=== PATIENT | male | born 1940 | race Caucasian/White ===

== ENCOUNTER → 2016-09-10 | Outpatient (CLI) | payer OTHER ==
--- NOTE | 2016-09-10 13:39 | MA ---
Diagnostic Digital Mammogram With iCAD Analysis Clinical Indications: Breast tenderness reported by the patient in the subareolar right breast in a [age]-year-old male. The patient's physician may have detected a lump on physical examination, although t he patient is unaware of where this was and he does not feel a discrete lump. Technique: Standard cephalocaudal and mediolateral oblique projections were obtained. This examinatio n was processed by the iCAD computer-aided detection system. Comparison: None Breast density: Type B; Scattered fibroglandular densities. Findings: CAD was reviewed. There is an asymmetric opacity in the subareolar right breast in a rather diffuse pattern. No focal mass is seen and no suspicious microcalcifications are identified. The lef t breast is negative. Impression: Asymmetric opacity in the symptomatic right breast requires further evaluation. BI-RADS 0 . Recommendation: Targeted right breast ultrasound which will be subsequently performed today. A verbal report was given to the patient. [facility] will send a result letter to the patient. Negative mammography should not preclude additional workup of a clinically suspicious finding. The patient's information is entered into a reminder system with a target due date for her next mammo gram.
--- NOTE | 2016-09-10 14:07 | US ---
Right Breast Ultrasound History: Follow up diagnostic mammography for evaluation of an area of asymmetric opacity in the suba reolar right breast in a 76-year-old male. Technique: Longitudinal and transverse images were obtained utilizing a 15 MHz transducer. Study was interpreted in conjunction with diagnostic mammography from earlier today. Findings: On my physical examination, I do not detect a discrete palpable mass. Sonographic interroga tion of the anterior right breast demonstrates normal appearing glandular elements. No solid or cysti c mass is seen. Mildly prominent ducts are noted. The constellation of findings on both mammography a nd sonography are consistent with gynecomastia. Impression: Benign findings when considering mammographic and sonographic assessment. BI-RADS 2. Recommendation: Continued clinical follow up. If the reported palpable area enlarges or becomes suspi cious for any reason, additional evaluation or surgical consultation could be considered. A verbal report was given to the patient. [facility] will send a result letter to the patient.
== END ==
LOC: FIMAGING 12:43
PROVIDERS: ATTEND Family Medicine
DX: R92.2 Inconclusive mammogram (principal); R68.89 Other general symptoms and signs; N63 Unspecified lump in breast
CPT/HCPCS: 76641; G0204; 84402-90; 84702-90

== ENCOUNTER 2017-11-29 16:24 | Observation (INO) | payer OTHER ==
--- NOTE | 2017-11-29 16:46 | EDPHY ---
H & P Stated Complaint: ABNORMAL LABS. 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 - Social History Smoking Status: Never smoked Constitutional: Initial Vital Signs Temperature (C) 36.6 C 11/29/17 16:36 Heart Rate 79 11/29/17 16:36 Respiratory Rate 19 11/29/17 16:36 Blood Pressure 166/69 H 11/29/17 16:36 O2 Sat (%) 90 L 11/29/17 16:36 O2 Delivery Mode Room Air Allergies/Adverse Reactions: No Known Allergies Allergy (Verified 03/24/16 17:52) Home Medications: Medication Instructions Recorded Acetaminophen [Tylenol 325mg (*)] 650 mg PO Q6 PRN 03/24/16 Cetirizine [ZyrTEC 10 mg (*)] 10 mg PO DAILY 03/24/16 Finasteride [Proscar 5 MG (*)] 5 mg PO DAILY 03/24/16 Ondansetron [Ondansetron Odt] 4 mg PO Q6 PRN 03/24/16 Pantoprazole Sodium [Protonix 40mg 40 mg PO BID #60 tab 03/27/16 (*)] Herbals/Supplements -Info Only 05/16/16 Medical Decision Making ED Course/Re-evaluation: CHIEF COMPLAINT: "My hemoglobin's been dropping since August" HISTORY OF PRESENT ILLNESS: The patient is a 77 y/o male with liposarcoma and renal failure on dialysis arriving at the recommendation of his physician for a transfusion due to anemia. He reports his Hgb has been dropping since August despite dialysis and Epogen. He has not required a transfusion yet. He reports he gets labs drawn every Friday at dialysis and these have shown a downward trend of his H&H, but he does not have those results with him. Most recent labs performed through our facility on 11/13 show Hgb of 7.1. He is mildly pale and fatigued, but denies other acute complaints. REVIEW OF SYSTEMS: A 10 point review of systems was performed and is negative with the exception of the elements mentioned in the history of present illness. PHYSICAL EXAM: HR, BP, O2 Sat, RR. Temp noted General Appearance: Alert, well hydrated, appropriate, and non-toxic appearing. Mildly pale. Head: Atraumatic without scalp tenderness or obvious injury Eyes: Pupils equal, round, reactive to light and accommodation, EOMI, no trauma , no injection. Nose: Atraumatic, no rhinorrhea, clear. Throat: Mucus membranes moist. Neck: Supple, nontender, no lymphadenopathy. Respiratory: No retractions, no distress, no wheezes, and no accessory muscle use. Lungs are clear to auscultation bilaterally. Cardiovascular: Regular rate and rhythm, no murmurs, rubs, or gallops. Good capillary refill all extremities. Fistula of right forearm. Gastrointestinal: Abdomen is soft, nontender, non-distended, no masses, no rebound, no guarding, no peritoneal signs. Musculoskeletal: Normal active ROM of all extremities, atraumatic. Neurological: Alert, appropriate, and interactive. The patient has non-focal cranial nerves, motor, sensory, and cerebellar exam. Skin: No rashes, good turgor, no nodules on palpation. Past medical history: Liposarcoma, hernia, kidney failure on dialysis Past surgical history: Fistula, left nephrectomy Family history: noncontributory Social history: Senior Gl Accountant: Dr. Owens. DIFFERENTIAL DIAGNOSIS: The differential diagnosis for the patient's anemia included but was not limited to renal failure, chronic kidney disease, possible bone marrow dysplasia. MEDICAL DECISION MAKING: This is a 77 y/o male on dialysis who presents for a transfusion with a 4-month history of downward-trending H&H. His most recent Hgb in our records was 7.1 on 11/13, about 2 weeks ago. He is mildly pale, but otherwise well-appearing. Plan for IV, labs, 2 units PRBCs, and admission. 1721: Spoke with hospitalist service. Dr. Cuellar accepts admission. - Data Points Laboratory Results: Laboratory Results 11/29/17 17:00 11/29/17 11/29/17 11/29/17 17:00 17:00 17:00 WBC RBC Hgb Hct MCV MCH MCHC RDW Plt Count MPV Neut % (Auto) Lymph % (Auto) [place] % (Auto) Eos % (Auto) Baso % (Auto) Nucleat RBC Rel Count Absolute Neuts (auto) Absolute Lymphs (auto) Absolute Monos (auto) Absolute Eos (auto) Absolute Basos (auto) Absolute Nucleated RBC Immature Gran % Immature Gran # PT Pending INR Pending APTT Pending Sodium Pending Potassium Pending Chloride Pending Carbon Dioxide Pending Anion Gap Pending BUN Pending Creatinine Pending Estimated GFR Pending Glucose Pending Calcium Pending Total Bilirubin Pending Conjugated Bilirubin Pending Unconjugated Bilirubin Pending AST Pending ALT Pending Alkaline Phosphatase Pending Total Protein Pending Albumin Pending Lipase Pending Patient ABO/Rh Pending Antibody Screen Pending Crossmatch IS Only See Detail 11/29/17 17:00 WBC 8.83 10^3/uL 10^3/uL (3.80-9.50) RBC 2.94 10^6/uL L 10^6/uL (4.40-6.38) Hgb 7.8 g/dL L g/dL (13.7-17.5) Hct 24.9 % L % (40.0-51.0) MCV 84.7 fL fL (81.5-99.8) MCH 26.5 pg L pg (27.9-34.1) MCHC 31.3 g/dL L g/dL (32.4-36.7) RDW 19.7 % H % (11.5-15.2) Plt Count 571 10^3/uL H 10^3/uL (150-400) MPV 9.2 fL fL (8.7-11.7) Neut % (Auto) 71.0 % % (39.3-74.2) Lymph % (Auto) 16.1 % % (15.0-45.0) [place] % (Auto) 9.6 % % (4.5-13.0) Eos % (Auto) 2.2 % % (0.6-7.6) Baso % (Auto) 0.9 % % (0.3-1.7) Nucleat RBC Rel Count 0.0 % % (0.0-0.2) Absolute Neuts (auto) 6.27 10^3/uL 10^3/uL (1.70-6.50) Absolute Lymphs (auto) 1.42 10^3/uL 10^3/uL (1.00-3.00) Absolute Monos (auto) 0.85 10^3/uL H 10^3/uL (0.30-0.80) Absolute Eos (auto) 0.19 10^3/uL 10^3/uL (0.03-0.40) Absolute Basos (auto) 0.08 10^3/uL 10^3/uL (0.02-0.10) Absolute Nucleated RBC 0.00 10^3/uL 10^3/uL (0-0.01) Immature Gran % 0.2 % % (0.0-1.1) Immature Gran # 0.02 10^3/uL 10^3/uL (0.00-0.10) PT INR APTT Sodium Potassium Chloride Carbon Dioxide Anion Gap BUN Creatinine Estimated GFR Glucose Calcium Total Bilirubin Conjugated Bilirubin Unconjugated Bilirubin AST ALT Alkaline Phosphatase Total Protein Albumin Lipase Patient ABO/Rh Antibody Screen Crossmatch IS Only Departure - Departure Disposition: [facility] Inpatient Acute Clinical Impression: Anemia Qualifiers: Anemia type: unspecified type Qualified Code(s): D64.9 - Anemia, unspecified Condition: Fair Referrals: Jose G Horton MD [Primary Care Provider] - As per Instructions Report Scribed for: Refugio Reece Report Scribed by: Anna Gregorio Date of Report: 11/29/17 Time of Report: 17:21
[2017-11-29 17:08] LABS: PLATELET COUNT 571 10^3/uL (150-400)
[2017-11-29 17:24] LABS: INR 1.13 (0.83-1.16); PROTIME(PATIENT) 14.7 SEC (12.0-15.0)
[2017-11-29] MEDS ORDERED: ONDANSETRON 4 MG/2 ML VIAL IVP PRN (17:30)
[2017-11-29] MEDS ORDERED: ONDANSETRON DISINTEGRATING 4 MG TAB PO PRN (17:30)
[2017-11-29] MEDS ORDERED: ACETAMINOPHEN 325 MG TAB PO PRN (17:30)
--- NOTE | 2017-11-29 19:50 | GHP ---
[f rep st] HISTORY AND PHYSICAL DATE OF ADMISSION: 11/29/2017 CHIEF COMPLAINT: Low hemoglobin, sent in by RN for blood transfusion. HISTORY OF PRESENT ILLNESS: The patient is a 77-year-old male with a history of metastatic liposarcoma and subsequent nephrectomy resulting in end-stage renal disease, who is now dialysis dependent, presents to the emergency department with reports of a low hemoglobin and his nurse requesting a blood transfusion. He has a history of esophagitis and underwent EGD in June,, which revealed Callahan esophagus. He had a follow up EGD by Dr. Maximo Yuen at [facility] in September, and was found to have an esophageal ulceration. It seems he has been taking just p.r.n. ranitidine for this. His hemoglobin in August of 2017 was 12.1 and has trended down to 7.1 on November 13. Upon arrival to the ER today, his hemoglobin is 7.8, which is up a bit in the past 2 weeks. He denies melenic stools or bright red blood per rectum. He states he had a normal bowel movement last night. He reports occasional vomiting episodes, but no vomiting in at least the past week and no history of hematemesis. He is on a Friday, Friday, Friday dialysis schedule. He reports he does make urine and he generally does not require volume removal during dialysis. In the emergency department he denies dizziness, headache, vision changes, chest pain, shortness of breath, abdominal pain, nausea, vomiting, or diarrhea. He is afebrile. Given that his hemoglobin is trending down, he is admitted to the hospital for observation and further evaluation. PAST MEDICAL HISTORY: 1. Metastatic liposarcoma, status post surgical resection x2 with recent PET scan in October of 2017 revealing possible evidence of recurrent disease. Followed by Dr. Pete and Dr. Barksdale. 2. 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 4. Atrial fibrillation. This was an isolated episode in 2014 during hospitalization. Not anticoagulated. 5. History of PIC-associated DVT. 6. Anemia. 7. BPH MEDICATIONS: Please see [facility] for completed outpatient medication list. ALLERGIES: He has no known drug allergies. FAMILY HISTORY: Reviewed and noncontributory. SOCIAL HISTORY: The patient lives independently. He denies alcohol or tobacco use. REVIEW OF SYSTEMS: A 10-point review of systems was performed and is negative except as per HPI. OBJECTIVE: VITAL SIGNS: Temperature is 36.8, blood pressure 159/74, heart rate 71, respiratory rate 12, he is 91% on room air. GENERAL: Patient is awake , alert, and oriented, in no acute distress. HEENT: Head is atraumatic, normocephalic. Pupils equal, round, react to light. Extraocular movements intact. Oropharynx clear. Mucous membranes are moist. NECK: Supple. There is no JVD. HEART: Regular rate and rhythm without rhythm. LUNGS: Clear to auscultation bilaterally. ABDOMEN: Soft, nondistended, nontender. Normoactive bowel tones. EXTREMITIES: Without cyanosis, clubbing, or edema. NEUROLOGIC: Exam is grossly nonfocal. LABORATORY DATA: CBC reveals a white blood cell count of 8.8, hemoglobin 7.8, this is up from 7.1 two weeks ago, but down from 12 three months ago. His MCV is normal at 84.7, platelets slightly elevated at 571. INR is normal at 1.1. Complete metabolic panel shows a BUN of 27, creatinine 4.3, electrolytes are normal, blood glucose 138. LFTs are normal, although his alkaline phosphatase is minimally elevated at 131. ASSESSMENT/PLAN: The patient is a 77-year-old male with a history of sarcolipoma, end-stage renal disease, and esophagitis with worsening anemia, who is admitted to the hospital for further evaluation. 1. Normocytic anemia. His hemoglobin has been trending down from 12 since the beginning of the year. He has no obvious signs of bleeding and is hemodynamically stable. His hemoglobin is actually up to 7.8 from 7.1 two weeks ago. At this point, I do not think he needs a blood transfusion. An EGD 2 months ago revealed an esophageal ulceration. This is most likely the source of his blood loss and he is not currently on PPI therapy. I discussed the case with Gastroenterology. Will make him n.p.o. after midnight and trend his hemoglobin for now. If he has an abrupt drop, could consider repeat EGD. However, it seems the appropriate next step is to start him on Protonix twice daily to help heal the ulcer and proceed with p.r.n. transfusions for hemoglobin less than 7, overt signs of bleeding or hemodynamic instability. Dr. Vu will consult tomorrow. 2. End-stage renal disease. This is secondary to nephrectomy for liposarcoma. The patient is a Friday, Friday, Friday dialysis. He has no urgent dialysis needs. He is euvolemic. He does make some urine. Will need to alert Nephrology of his admission if he is still here on Friday when he is next due for dialysis. 3. Metastatic liposarcoma. It sounds as if he may have disease recurrence based on a recent PET scan reviewed by his surgeon. They are planning to take his case to Tumor Board in the near future. He is followed by Dr. Pete and Dr. Barksdale. Oncology is not alerted of his admission at this time. 4. Esophagitis. B.i.d. proton pump inhibitor as above. 5. Atrial fibrillation. This was an isolated 1 time event that occurred briefly during hospitalization. He is not anticoagulated. 6. Deep venous thrombosis prophylaxis. Will defer pharmacologic therapy, given his suspected ongoing blood loss. Sequential compression devices are ordered. 7. Code status. The patient is a full code. 8. Disposition. Patient is admitted to observation status. Should he warrant further inpatient workup, he may need to be changed to inpatient. /[id number]/MODL MTDD
[2017-11-29] MEDS: PANTOPRAZOLE SODIUM 40 MG TAB PO SCH (20:41)
[2017-11-30 05:18] LABS: PLATELET COUNT 438 10^3/uL (150-400)
[2017-11-30] MEDS ORDERED: FINASTERIDE 5 MG TAB PO SCH (09:00)
--- NOTE | 2017-11-30 09:06 | GCON ---
[f rep st] CONSULTATION INPATIENT CONSULTATION NOTE REFERRING PHYSICIAN: Sharon Cuellar MD REASON FOR CONSULTATION: Anemia. CHIEF COMPLAINT: Anemia. HISTORY OF PRESENT ILLNESS: Briefly, the patient is a pleasant 77-year-old male with a past medical history significant for recurrent liposarcoma, and end-stage renal disease, for which he is on dialys is. It has been noted over the last many weeks that he has had a trending fall in his hemoglobin and hematocrit. From my review of the record, it appears that his baseline hematocrit is in the mid to low 30s. Over the last 6-8 weeks, there are multiple recordings from his outpatient visits, as well as dialysis sessions, where his hematocrits have been in the mid to low 20s. In the setting of a wor sening hematocrit and hemoglobin, he was asked to present to the emergency room to consider a blood t ransfusion. He has been admitted, however, for the evaluation of his anemia. He denies melena. He reports no nausea. He has had no bloody stool. He admits to no hematemesis or abdominal pain. He has had prior upper endoscopy, as recently as 6-8 weeks ago. This was done in the setting of eval uation of recurrent liposarcoma. His upper endoscopy was largely negative, although did reveal some small esophageal erosion/ulceration. He cannot recall when his last colonoscopy occurred. His anemia is normocytic, with normal iron testing. PAST MEDICAL HISTORY: Includes metastatic liposarcoma, esophagitis, Callahan's esophagus, atrial fibr illation, isolated, no longer on anticoagulation, anemia, BPH. ALLERGIES: None. MEDICATIONS: Current medications include Tylenol, Proscar, Zofran, and Protonix. FAMILY HISTORY: Negative for upper intestinal cancer. SOCIAL HISTORY: He lives independently. He does not drink or smoke. REVIEW OF SYSTEMS: A complete 14-point review of systems was undertaken with the patient. The perti nent positives and negatives are detailed in the history of present illness. PHYSICAL EXAM: GENERAL: This is a well-developed male, in no apparent distress. HEENT: His pupils are equal, round, reactive to light and accommodation. His sclerae nonicteric. His oropharynx is c lear. NECK: Supple without lymphadenopathy. HEART: Regular without murmur. LUNGS: Clear to ausc ultation with good respiratory effort. ABDOMEN: Soft, nontender, with normoactive bowel sounds. EX TREMITIES: Free of cyanosis, clubbing, and edema. NEURO: Grossly nonfocal. SKIN: Warm and dry. JOINTS: Show no arthritis. PSYCH: Reveals normal mood and affect. LABORATORY TESTING: Reveals a hemoglobin of 7.2, hematocrit 21.9. Of note, approximately 6-8 weeks ago, at dialysis, he had a similar hemoglobin and hematocrit. Platelet count of 481, MCV of 85. INR 1.1. Sodium of 142, potassium of 3.7, chloride of 103, bicarb of 29, BUN of 37, creatinine of 4.5, albumin of 2.0. IMPRESSION/RECOMMENDATIONS: Anemia. The clinical clues do not suggest a GI source of blood loss. H e may have some contribution of GI bleeding from upper intestinal inflammation of gastritis and esoph agitis. But, given the chronic nature of his symptoms, despite a normal iron, in the setting of a no rmal MCV, I am not suspicious for GI sources of blood loss. I am suspicious for gradually worsening anemia of chronic disease in the setting of known metastatic cancer and dialysis. Furthermore, there is no clinical clue of melena, hematochezia, nausea, or other GI symptoms, or change in bowel habits . At this time, I recommend he receive anemia care with blood transfusion (if indicated), and consider discharge home with followup, with his Hematology/Oncology provider. If there is suspicion, ultimate ly, for an occult GI blood loss, we could consider upper and lower endoscopy. At this time, however, that does not seem likely. Given the esophagitis and gastritis noted approximately 2 months ago, I do recommend he stay on a pro ton pump inhibitor therapy. /[id number]/MODL
[2017-11-30] MEDS: PANTOPRAZOLE SODIUM 40 MG TAB PO SCH (11:04)
--- NOTE | 2017-11-30 11:13 | HOSPPROG ---
Hospitalist Progress Note Assessment/Plan: Patient is a 77-year-old male with history of metastatic liposarcoma resulting in a nephrectomy, end-stage renal disease who is dialysis dependent who presented to the emergency room with a low hemoglobin. He had an EGD June of 2016 which revealed bread esophagus. He had a follow-up EGD and was found to have an esophageal ulceration in 2018. Today is my 1st encounter with the patient. Chart reviewed. Reviewed the vice president of product marketing consult. * normocytic anemia -this is likely secondary to chronic disease. Patient has end-stage renal disease -had an EGD 2 months ago which revealed esophageal ulceration, started on PPI therapy -appreciate Dr. Vu is consult * end-stage renal disease -this is secondary to the nephrectomy for liposarcoma -to get dialysis Friday * metastatic liposarcoma -concern for recurrence based on his recent PET scan, he is to have his case reviewed at the tumor board in the near future * esophagitis * isolated event of atrial fibrillation * esophagitis *con. Reviewed the patient's care with Nephrology and they are okay if we give him a unit of blood. And he will get dialysis tomorrow. Reviewed this with the patient and he is fine with this. Recommendation is to give the blood over 4 hr. I have updated the nursing staff in regards to this. He will likely be discharged this afternoon. Also, spoke with oncology who were fine with the transfusion, will have Elier f/u with Dr Barksdale. Subjective: Elier is tired, said he didn't sleep all night and feels exhausted overall. Objective: Vital Signs Temp Pulse Resp BP Pulse Ox 36.8 C 66 18 124/64 H 92 11/30/17 07:35 11/30/17 07:35 11/30/17 07:35 11/30/17 07:35 11/30/17 07:35 Laboratory Results 11/30/17 05:10 11/30/17 05:10 PT 14.7 SEC (12.0-15.0) 11/29/17 17:00 INR 1.13 (0.83-1.16) 11/29/17 17:00 - Physical Exam Constitutional: not in pain, chronically ill appearing Eyes: PERRL Ears, Nose, Mouth, Throat: hearing normal Respiratory: no respiratory distress Skin: warm, No normal color (pale) Musculoskeletal: generalized weakness Neurologic: AAOx3 Psychiatric: interacting appropriately ICD10 Worksheet Patient Problems: Problems Problem Status Onset Anemia Acute Chest pain Acute Chronic renal failure Acute GI bleed Acute Influenza A Acute Pancreatitis Acute Pneumonia Acute
[2017-11-30 11:49] VITALS: BP 134/59
[2017-11-30] MEDS ORDERED: ACETAMINOPHEN 325 MG TAB PO ONE (12:05)
--- NOTE | 2017-11-30 16:10 | ASMTCMCOM ---
CM Note CM Note Notes: Chart reviewed. 77 year old male admitted via ED with decreased H&H, he is ESRD and on dialysis. Has hx of cancer. To have blood transfusion. Normally independent. No current needs identified. CM available should needs arise. Plan: Home Indpendent Date Signed: 11/30/2017 04:09 PM Electronically Signed By:Arlet Hope RN
--- NOTE | 2017-11-30 17:13 | GDS ---
[f rep st] DISCHARGE SUMMARY DISCHARGE DIAGNOSES: 1. Anemia, likely from chronic disease. 2. End-stage renal disease. 3. Metastatic liposarcoma. 4. Esophagitis. 5. Isolated event of atrial fibrillation. CONSULTATION: Dr. Nato Vu. HISTORY: Briefly, the patient is a 77-year-old male with history of metastatic liposarcoma resulting in nephrectomy. He has end-stage renal disease and is dialysis dependent. [facility] his hemoglobin had been dropping. He had an EGD in June 2016, which revealed an esophagitis. He had followup EGD and was found to have an esophageal ulceration in 2018. He was seen and evaluated by Dr. Vu, who felt he had anemia from chronic disease. He received 2 units o f packed red blood cells after the 1st unit with little improvement. He will get another unit today prior to discharge. He will follow up with Dr. Barksdale and Nephrology in the outpatient setting. HOSPITAL COURSE BY PROBLEM: 1. Anemia, most consistent with chronic disease. He has end-stage renal disease. He had an EGD 2 m onths ago. I have started him on PPI therapy. He says he is not sure he will stay on it because he is worried about PPIs causing dementia. 2. End-stage renal disease. This is secondary to the nephrectomy for liposarcoma. He will get dial ysis tomorrow. 3. Metastatic liposarcoma. There is concern for recurrence, based on his recent PET scan. He is to have his case reviewed at the Tumor Board in the near future. 4. Esophagitis. Recommendation is for him to stay on a PPI. DISCHARGE CONDITION: Stable. VITAL SIGNS: Blood pressure is 134/59, heart rate is 67, respiratory rate is 16, O2 sats on room air 92%, temperature is 36.8 Celsius. MEDICATIONS AT DISCHARGE: Please see the EMR. DISCHARGE INSTRUCTIONS: 1. To follow up with Oncology. Let Dr. Barksdale know that he received 2 units of blood. 2. Continue dialysis as done. 3. If he develops fever, chills, chest pain, worsening bleeding, to return to the ER. /[id number]/MODL
== END 2017-11-30 21:13 | disposition home or self-care (01) ==
LOC: F3E 18:12
PROVIDERS: ADMIT Hospitalist; ATTEND Internal Medicine
PROC: 30233N1 Transfusion of Nonautologous Red Blood Cells into Peripheral Vein, Percutaneous Approach (ICD-10-PCS; principal; 2017-11-29)
DX: D64.9 Anemia, unspecified (principal); N18.6 End stage renal disease; K20.9 Esophagitis, unspecified; I48.91 Unspecified atrial fibrillation; K22.70 Barrett's esophagus without dysplasia; N40.0 Benign prostatic hyperplasia without lower urinary tract symptoms; Z85.831 Personal history of malignant neoplasm of soft tissue; Z86.718 Personal history of other venous thrombosis and embolism; Z90.5 Acquired absence of kidney; Z99.2 Dependence on renal dialysis
CPT/HCPCS: 97165; G0378; G8987; G8988; G8989; P9016

== ENCOUNTER → 2018-01-19 | Outpatient (CLI) | payer OTHER | LOC: FIMAGING 12:14 | PROVIDERS: ATTEND Radiology Radiation Oncology | DX: R19.00 Intra-abdominal and pelvic swelling, mass and lump, unspecified site (principal); N26.1 Atrophy of kidney (terminal) ==

== ENCOUNTER 2018-01-24 13:27 | Observation (INO) | payer OTHER ==
[2018-01-24 14:16] LABS: PLATELET COUNT 635 10^3/uL (150-400)
--- NOTE | 2018-01-24 14:20 | CPEKG ---
Heart Rate: 81 RR Interval: 741 P-R Interval: 144 QRSD Interval: 102 QT Interval: 396 QTC Interval: 460 P [place]: 49 QRS [place]: 9 T Wave [place]: 27 EKG Severity - NORMAL ECG - EKG Impression: SINUS RHYTHM Electronically Signed By: Karen Munoz 24-Jan-2018 15:32:23
[2018-01-24] MEDS ORDERED: NS 300 ML IV ONE (14:37)
--- NOTE | 2018-01-24 14:42 | EDPHY ---
H & P Stated Complaint: Abnl labs on Fridialysis;sent for eval of low Hgb/elevated K + Time Seen by Provider: 01/24/18 13:50 HPI/ROS: CHIEF COMPLAINT: Here for blood transfusion HISTORY OF PRESENT ILLNESS: 77-year-old male with ESRD, on dialysis, and recurrent liposarcoma presents with generalized weakness. He is currently undergoing dialysis on Friday and Friday. He also has recurrent liposarcoma and is undergoing XRT. Decreased oral intake since starting XRT, no vomiting. Feels quite weak, fatigued and somewhat unsteady with walking. Hemoglobin on Friday was 7.7. He was sent to the emergency department for transfusion. Last transfusion was 11/29/2017, 2 units packed red blood cells. s/ p right nephrectomy for liposarcoma, still urinates fairly normally. REVIEW OF SYSTEMS: complete 10 point ROS negative except at noted in the HPI - Personal History Current Tetanus Diphtheria and Acellular Pertussis (TDAP): Yes - Medical/Surgical History Hx Asthma: No Hx Chronic Respiratory Disease: No Hx Diabetes: No Hx Cardiac Disease: Yes Hx Renal Disease: Yes Hx Cirrhosis: No Hx Alcoholism: No Hx HIV/AIDS: No Hx Splenectomy or Spleen Trauma: Yes Other PMH: LIPOSARCOMA/HERNIA/KIDNEY FAILURE WITH DIALYSIS/esophageal ulcer - Social History Smoking Status: Never smoked - Physical Exam Exam: General Appearance: Alert, pleasant Eyes: Pupils equal and round, conjunctival pallor or ENT, Mouth: Mucous membranes somewhat dry Neck: Normal inspection Respiratory: Lungs are clear to auscultation Cardiovascular: Regular rate and rhythm Gastrointestinal: Abdomen is soft and nontender Neurological: A&O, nonfocal exam Skin: Warm and dry Extremities: Normal inspection Psychiatric: Mood and affect normal Constitutional: Initial Vital Signs Temperature (C) 36.9 C 01/24/18 13:36 Heart Rate 99 01/24/18 13:36 Respiratory Rate 16 01/24/18 13:36 Blood Pressure 111/56 L 01/24/18 13:36 O2 Sat (%) 95 01/24/18 13:36 O2 Delivery Mode Nasal Cannula O2 (L/minute) 2 Allergies/Adverse Reactions: hydrocodone Allergy (Mild, Verified 01/24/18 13:43) GI upset Home Medications: Medication Instructions Recorded Acetaminophen [Tylenol 325mg (*)] 650 mg PO Q6 PRN 03/24/16 Finasteride [Proscar 5 MG (*)] 5 mg PO DAILY 03/24/16 Ondansetron [Ondansetron Odt] 4 mg PO Q6 PRN 03/24/16 Herbals/Supplements -Info Only 1 ea PO DAILY 05/16/16 Ranitidine HCl 150 mg PO DAILY PRN 11/29/17 Pantoprazole Sodium [Protonix 40mg 40 mg PO DAILY #60 tab 11/30/17 (*)] Medical Decision Making - Diagnostics EKG Interpretation: EKG interpreted by me reveals normal sinus rhythm, rate 81, no ST or T segment changes. Interpretation: Normal EKG ED Course/Re-evaluation: This pt presents with generalized weakness and anemia. Hgb 8.7 today, I suspect slightly higher today than on 01/20 because of dehydration. Pt is quite frail-appearing and is asking for a PRBC transfusion. I feel that this is reasonable and will probably make him feel better. 1 unit packed red blood cells ordered. d/w pt option of IVF for dehydration, able to urinate and often tolerates 1 liter NS after dialysis. Will give IV normal saline 300 mL for dehydration. The hospitalist service was consulted for admission. Differential Diagnosis: Differential diagnosis includes does not limited to acute hemorrhage, severe dehydration, hemolysis, aplastic anemia. - Data Points Laboratory Results: Laboratory Results 01/24/18 14:05 01/24/18 14:05 01/24/18 01/24/18 01/24/18 14:05 14:05 14:05 WBC 12.41 10^3/uL H 10^3/uL (3.80-9.50) RBC 3.19 10^6/uL L 10^6/uL (4.40-6.38) Hgb 8.7 g/dL L g/dL (13.7-17.5) Hct 27.5 % L % (40.0-51.0) MCV 86.2 fL fL (81.5-99.8) MCH 27.3 pg L pg (27.9-34.1) MCHC 31.6 g/dL L g/dL (32.4-36.7) RDW 18.5 % H % (11.5-15.2) Plt Count 635 10^3/uL H 10^3/uL (150-400) MPV 9.5 fL fL (8.7-11.7) Neut % (Auto) Not Reported Lymph % (Auto) Not Reported [place] % (Auto) Not Reported Eos % (Auto) Not Reported Baso % (Auto) Not Reported Nucleat RBC Rel Count Not Reported Absolute Neuts (auto) Not Reported Absolute Lymphs (auto) Not Reported Absolute Monos (auto) Not Reported Absolute Eos (auto) Not Reported Absolute Basos (auto) Not Reported Absolute Nucleated RBC Not Reported Immature Gran % Not Reported Seg Neutrophils % 89.0 % % Band Neutrophils % 0 % % Lymphocytes % 1.0 % % Monocytes % 10.0 % % Eosinophils % 0 % % Basophils % 0 % % Metamyelocytes % 0 % % Myelocytes % 0 % % Promyelocytes % 0 % % Blast Cells % 0 % % Immature Gran # Not Reported Absolute Seg Neuts 11.04 10^/uL H 10^/uL (1.70-6.50) Absolute Band Neuts 0.00 10^3/uL 10^3/uL (0.00-0.70) Absolute Lymphocytes 0.12 10^3/uL L 10^3/uL (1.00-3.00) Absolute Monocytes 1.24 10^3/uL H 10^3/uL (0.30-0.80) Absolute Eosinophils 0.00 10^3/uL L 10^3/uL (0.03-0.40) Absolute Basophils 0.00 10^3/uL L 10^3/uL (0.02-0.10) Absolute Metamyelocyte 0.00 10^3/mL 10^3/mL (0.00-0.00) Absolute Myelocytes 0.00 10^3/mL 10^3/mL (0.00-0.00) Absolute Promyelocytes 0.00 10^3/uL 10^3/uL (0.00-0.00) Absolute Plasma Cells 0.00 10^3/uL 10^3/uL (0.00-0.00) Absolute Blast Cells 0.00 10^3/uL 10^3/uL (0.00-0.00) Plasma Cells % 0 % % Platelet Estimate INCREASED H (ADEQ) Polychromasia 1+ H Microcytic Cells 1+ H Target Cells 1+ H Oval Macrocytes 2+ H Sodium 142 mEq/L mEq/L (135-145) Potassium 4.4 mEq/L mEq/L (3.3-5.0) Chloride 96 mEq/L L mEq/L (97-110) Carbon Dioxide 25 mEq/l mEq/l (22-31) Anion Gap 21 mEq/L H mEq/L (8-16) BUN 35 mg/dL H mg/dL (7-23) Creatinine 4.1 mg/dL H mg/dL (0.7-1.3) Estimated GFR 14 Glucose 193 mg/dL H mg/dL (70-100) Calcium 8.9 mg/dL mg/dL (8.5-10.4) Patient ABO/Rh B POSITIVE Antibody Screen NEGATIVE Crossmatch IS Only See Detail Enhanced Crossmatch See Detail Medications Given: Discontinued Medications Sodium Chloride (Ns) 300 mls @ 1,000 mls/hr IV EDNOW ONE PRN Reason: Protocol Stop: 01/24/18 14:54 Last Admin: 01/24/18 14:51 Dose: 300 mls Departure - Departure Disposition: [facility] Inpatient Acute Clinical Impression: Anemia of chronic disease Condition: Fair
[2018-01-24] MEDS ORDERED: ONDANSETRON DISINTEGRATING 4 MG TAB PO PRN (16:05)
[2018-01-24] MEDS ORDERED: ONDANSETRON 4 MG/2 ML VIAL IVP PRN (16:05)
[2018-01-24] MEDS ORDERED: ACETAMINOPHEN 325 MG TAB PO PRN (16:05)
--- NOTE | 2018-01-24 17:05 | PDGENHP ---
History and Physical - Chief Complaint Weakness, anemia - History of Present Illness This is a 77 yo male with hx of liposarcoma who is undergoing XRT who has been having decreased oral intake to both solids and foods x weeks. He arrived to the ER and requested a PRBC transfusion as he had sx's similar to this in the past and a transfusion has helped him. In the ER he was given 300ml of Normal saline and 1 unit PRBC was started. He is currently undergoing dialysis on Friday and Friday. His Hgb today is 8.7 which is increased from last checked a few days ago at dialysis which was 7.7. He was admitted with similar sx's in november and had transfusion at that time. His w/o included normal iron stores. His anemia was attributed to renal and chronic disease. He also c/o intermittent nausea but no vomiting. He has been afebrile. no cp or sob. no cough. no diarrhea. no urinary sx's. PMsH: LIPOSARCOMA/HERNIA/KIDNEY FAILURE WITH DIALYSIS/esophageal ulcer, afib ( isolated), BPH, anemia, Hx of PICC associated DVT, Nephrectomy - Social History Smoking Status: Never smoked, no ETOH FmHx: non contributory History Information - Allergies/Home Medication List Allergies/Adverse Reactions: hydrocodone Allergy (Mild, Verified 01/24/18 13:43) GI upset Home Medications: Acetaminophen [Tylenol 325mg (*)] 650 mg PO Q6 PRN 03/24/16 [Last Taken 06/16/16 ] Finasteride [Proscar 5 MG (*)] 5 mg PO DAILY 03/24/16 [Last Taken 01/24/18] Ondansetron [Ondansetron Odt] 4 mg PO Q6 PRN 03/24/16 [Last Taken 11/29/17] Herbals/Supplements -Info Only 1 ea PO DAILY 05/16/16 [Last Taken 06/15/16] Ranitidine HCl 150 mg PO DAILY PRN 11/29/17 [Last Taken Unknown] I have personally reviewed and updated: medical history, social history - Social History Smoking Status: Never smoked Review of Systems Review of Systems: ROS: 10pt was reviewed & negative except for what was stated in HPI & below Physical Exam Physical Exam: Temp Pulse Resp BP Pulse Ox 37.1 C 78 16 144/73 H 96 01/24/18 16:36 01/24/18 16:36 01/24/18 16:36 01/24/18 16:36 01/24/18 16:36 O2 (L/minute) 2 Constitutional: chronically ill appearing Eyes: PERRL Ears, Nose, Mouth, Throat: hearing normal, dry mucous membranes Cardiovascular: regular rate and rhythym, No edema Respiratory: no respiratory distress, no rales or rhonchi, clear to auscultation Gastrointestinal: normoactive bowel sounds, soft, non-tender abdomen Skin: warm Neurologic: AAOx3 Psychiatric: interacting appropriately, not anxious, not encephalopathic Lymph, Heme, Immunologic: No petechiae Lab Data & Imaging Review 01/24/18 14:05 01/24/18 14:05 WBC 12.41 10^3/uL (3.80-9.50) H 01/24/18 14:05 RBC 3.19 10^6/uL (4.40-6.38) L 01/24/18 14:05 Hgb 8.7 g/dL (13.7-17.5) L 01/24/18 14:05 Hct 27.5 % (40.0-51.0) L 01/24/18 14:05 MCV 86.2 fL (81.5-99.8) 01/24/18 14:05 MCH 27.3 pg (27.9-34.1) L 01/24/18 14:05 MCHC 31.6 g/dL (32.4-36.7) L 01/24/18 14:05 RDW 18.5 % (11.5-15.2) H 01/24/18 14:05 Plt Count 635 10^3/uL (150-400) H 01/24/18 14:05 MPV 9.5 fL (8.7-11.7) 01/24/18 14:05 Neut % (Auto) Not Reported 01/24/18 14:05 Lymph % (Auto) Not Reported 01/24/18 14:05 [place] % (Auto) Not Reported 01/24/18 14:05 Eos % (Auto) Not Reported 01/24/18 14:05 Baso % (Auto) Not Reported 01/24/18 14:05 Nucleat RBC Rel Count Not Reported 01/24/18 14:05 Absolute Neuts (auto) Not Reported 01/24/18 14:05 Absolute Lymphs (auto) Not Reported 01/24/18 14:05 Absolute Monos (auto) Not Reported 01/24/18 14:05 Absolute Eos (auto) Not Reported 01/24/18 14:05 Absolute Basos (auto) Not Reported 01/24/18 14:05 Absolute Nucleated RBC Not Reported 01/24/18 14:05 Immature Gran % Not Reported 01/24/18 14:05 Seg Neutrophils % 89.0 % 01/24/18 14:05 Band Neutrophils % 0 % 01/24/18 14:05 Lymphocytes % 1.0 % 01/24/18 14:05 Monocytes % 10.0 % 01/24/18 14:05 Eosinophils % 0 % 01/24/18 14:05 Basophils % 0 % 01/24/18 14:05 Metamyelocytes % 0 % 01/24/18 14:05 Myelocytes % 0 % 01/24/18 14:05 Promyelocytes % 0 % 01/24/18 14:05 Blast Cells % 0 % 01/24/18 14:05 Immature Gran # Not Reported 01/24/18 14:05 Absolute Seg Neuts 11.04 10^/uL (1.70-6.50) H 01/24/18 14:05 Absolute Band Neuts 0.00 10^3/uL (0.00-0.70) 01/24/18 14:05 Absolute Lymphocytes 0.12 10^3/uL (1.00-3.00) L 01/24/18 14:05 Absolute Monocytes 1.24 10^3/uL (0.30-0.80) H 01/24/18 14:05 Absolute Eosinophils 0.00 10^3/uL (0.03-0.40) L 01/24/18 14:05 Absolute Basophils 0.00 10^3/uL (0.02-0.10) L 01/24/18 14:05 Absolute Metamyelocyte 0.00 10^3/mL (0.00-0.00) 01/24/18 14:05 Absolute Myelocytes 0.00 10^3/mL (0.00-0.00) 01/24/18 14:05 Absolute Promyelocytes 0.00 10^3/uL (0.00-0.00) 01/24/18 14:05 Absolute Plasma Cells 0.00 10^3/uL (0.00-0.00) 01/24/18 14:05 Absolute Blast Cells 0.00 10^3/uL (0.00-0.00) 01/24/18 14:05 Plasma Cells % 0 % 01/24/18 14:05 Platelet Estimate INCREASED (ADEQ) H 01/24/18 14:05 Polychromasia 1+ H 01/24/18 14:05 Microcytic Cells 1+ H 01/24/18 14:05 Target Cells 1+ H 01/24/18 14:05 Oval Macrocytes 2+ H 01/24/18 14:05 Sodium 142 mEq/L (135-145) 01/24/18 14:05 Potassium 4.4 mEq/L (3.3-5.0) 01/24/18 14:05 Chloride 96 mEq/L (97-110) L 01/24/18 14:05 Carbon Dioxide 25 mEq/l (22-31) 01/24/18 14:05 Anion Gap 21 mEq/L (8-16) H 01/24/18 14:05 BUN 35 mg/dL (7-23) H 01/24/18 14:05 Creatinine 4.1 mg/dL (0.7-1.3) H 01/24/18 14:05 Estimated GFR 14 01/24/18 14:05 Glucose 193 mg/dL (70-100) H 01/24/18 14:05 Calcium 8.9 mg/dL (8.5-10.4) 01/24/18 14:05 Patient ABO/Rh B POSITIVE 01/24/18 14:05 Antibody Screen NEGATIVE 01/24/18 14:05 Crossmatch IS Only See Detail 01/24/18 14:05 Enhanced Crossmatch See Detail 01/24/18 14:05 Assessment & Plan Assessment: #Dehydration #anemia -no e/o of acute bleed or GI etiology -Hgb has trended down slowly since last admission #Leukocytosis, with no signs of active infection #End stage renal disease, HD dependent #Esophagitis #FTT #Metastatic Liposarcoma #Nausea Plan: He is dehydrated. He has already received 300 ml of IVF in the ER and is getting one unit PRBC. He may need additional fluid but given he is HD dependent will wait to see how he tolerates the transfusion and fluids already given. He does make urine but its not a significant amount check occult blood cont PPI repeat labs in a.m. antiemetics prn consider palliative care consult Notify Onc in a.m. if needed scds given anemia check prealbumin, nutrition stores, nutrition consult. HD on // full code, confirmed at bedside
[2018-01-24] MEDS ORDERED: FAMOTIDINE 20 MG TAB PO PRN (21:00)
[2018-01-25 06:36] LABS: PLATELET COUNT 516 10^3/uL (150-400)
[2018-01-25] MEDS ORDERED: PANTOPRAZOLE SODIUM 40 MG TAB PO SCH (09:00)
[2018-01-25] MEDS ORDERED: Herbals/Supplements -Info Only PO SCH (09:00)
[2018-01-25] MEDS ORDERED: FINASTERIDE 5 MG TAB PO SCH (09:00)
--- NOTE | 2018-01-25 10:55 | ASMTCMCOM ---
CM Note CM Note Notes: 01/25/2018 Case Management Note Reviewed chart. Pt admitted with hx of recurrent liposarcoma undergoing XRT presented to the ED requesting PRBC transfusion. Pt has dialysis MWF. During November 2017 admission pt d/c independent. Awaiting PT recommendations after eval. Case Management d/c poc: to be determined. Case Management to follow. Date Signed: 01/25/2018 10:55 AM Electronically Signed By:Virginia Peters RN
[2018-01-25] MEDS ORDERED: ACETAMINOPHEN 325 MG TAB PO ONE (12:39)
--- NOTE | 2018-01-25 13:19 | GCON ---
[f rep st] CONSULTATION INITIAL ONCOLOGY VISIT PRIMARY ONCOLOGIST: Dr. Gael Barksdale. REASON FOR CONSULTATION: Recurrent liposarcoma. 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 He underwent wide local excision. That excision include removing the spleen, the tail of pancreas, adrenal gland, and left kidney. He went underwent CyberKnife to the psoas muscle lesion, then he received adjuvant chemotherapy with Adriamycin, ifosfamide in 2008. In 2014, he had a 9.2 cm recurrence around the stomach. Dr. Pete performed resection with resection of the distal esophagus, proximal stomach, diaphragm, primary esophagogastrostomy anastomosis. In January 2016, I believe he developed recurrence and was treated with Votrient, but he had trouble with diarrhea, but he was responding. In November of this year, he was found to have a 9.3 cm PET avid mass in the left upper quadrant near the left nephrectomy and splenectomy beds. Initially, it was thought to start the Votrient, but at the Cancer Care Conference it was recommended to try neoadjuvant radiation, followed by resection. He has been undergoing radiation and he reports he is about 60% through the therapy. He has had some abdominal pain and hydrocodone was tried, but it made him too groggy and nauseated, so he is really not taking much at all. It is about the same. The main problem with the radiation has been fatigue. His appetite also not been quite as good. Because of the fatigue, blood count was obtained and it seemed lower at 7.7 while on dialysis. He was referred to the hospital for a blood transfusion, which he received overnight and tolerated it fine. He may be feeling a little bit better, but now, his hemoglobin today is 8.1. He denies any current chest pain. He denies any blood in stools or black tarry stools. He has seen Dr. Yuen, did an upper endoscopy in September. PAST MEDICAL HISTORY: 1. Liposarcoma as per HPI. 2. Chronic kidney failure, on dialysis. 3. History of esophageal ulcer. 4. Isolated history of atrial fibrillation. 5. BPH. 6. PICC line associated DVT. PAST SURGICAL HISTORY: Includes surgical with resections as per HPI, including splenectomy, tail of the pancreas, and left nephrectomy, as well as partial stomach and esophagus removed from a second surgery. He also had a partial thyroidectomy in 2000. FAMILY HISTORY: Unremarkable. SOCIAL HISTORY: Nonsmoker, nondrinker. ALLERGIES: He has no known drug allergies. HOME MEDICATIONS: Include pantoprazole, ranitidine, ondansetron, finasteride, and acetaminophen. REVIEW OF SYSTEMS: 10-point review of systems performed pertinent positives as per HPI, otherwise negative. PHYSICAL EXAMINATION: VITAL SIGNS: Temp is 36.9, pulse 76, blood pressure 127/ 97. GENERAL: He is a mildly pale gentleman, but in no distress. HEENT: Unremarkable. LUNGS: Clear today. CARDIAC: Regular with a 2/6 systolic murmur. ABDOMEN: Soft, nontender, without palpable mass. LYMPHATIC: Jair exam reveals no peripheral lymphadenopathy. NEUROLOGIC: Grossly intact. LABORATORY DATA: White count today is 11,000, hemoglobin is 8.1, platelet count 516,000. Chemistries: Alkaline phosphatase 136. BUN and creatinine 40 and 4.4. TSH is 0.23. IMPRESSION: 1. Recurrent liposarcoma, undergoing neoadjuvant radiation. 2. Chronic kidney failure, on hemodialysis. 3. Chronic anemia. The anemia is probably due to the underlying renal failure, which causes both erythematous deficiency and iron deficiency, along with the cancer and perhaps a partially related to the radiation. Typically, a patients on dialysis or receiving erythropoietin replacement and iron replacement, so I do not recommend that today. There does not appear to be any clinical evidence of bleeding and he has had recent scopes. I agree with just transfusing him as clinically indicated. Since he did not feel a whole lot better, I have recommended another unit today, but if he is stable after that, he can probably go home with followup in the office. He also will follow up tomorrow for both his dialysis, which is Friday, Friday, Friday, and continue the radiation. /[id number]/MODL MTDD
[2018-01-25 16:43] VITALS: BP 129/64
--- NOTE | 2018-01-25 16:48 | ASMTLACE ---
LACE Length of stay for Answers: Less than 1 day current admission Acuity / Level of Answers: No Care: Did the patient have an inpatient admission? Comorbidities - select Answers: Any tumor (including all that apply lymphoma or leukemia) Moderate or severe liver or renal disease # of Emergency department Answers: 1-2 visits in the last 6 months Score: 7 Date Signed: 01/25/2018 04:48 PM Electronically Signed By:Virginia Peters RN
--- NOTE | 2018-01-25 17:10 | ASDISCHSUM ---
Discharge Information Plan Status:Home with No Needs Medically Cleared to Leave:01/25/2018 Discharge Date:01/25/2018 CM D/C Disposition:Home, Routine, Self-Care ADT D/C Disposition:Home, Routine, Self-Care Projected Discharge Date:01/25/2018 Transportation at D/C: Discharge Delay Reason: Follow-Up Date:01/25/2018 Discharge Slot: Final Diagnosis: Placement Information Patient Contact Information Contact Name:SAL Relationship:Friend Address: City:[place] Alternate Phone: State/Zip Code:[place] [address] Email: Financial Information Financial Class:Medicare Primary Plan Desc:MEDICARE OUTPATIENT Primary Plan Number:[id number] Secondary Plan Desc:[employer] [facility] [employer] [facility] Secondary Plan Number:[id number] Assessment Information LACE LACE Length of stay for Answers: Less than 1 day current admission Acuity / Level of Answers: No Care: Did the patient have an inpatient admission? Comorbidities - select Answers: Any tumor (including all that apply lymphoma or leukemia) Moderate or severe liver or renal disease # of Emergency department Answers: 1-2 visits in the last 6 months Score: 7 Date Signed: 01/25/2018 04:48 PM Electronically Signed By:Virginia Peters RN [facility] CM Progress Note CM Note CM Note Notes: 01/25/2018 Case Management Note Reviewed chart. Pt admitted with hx of recurrent liposarcoma undergoing XRT presented to the ED requesting PRBC transfusion. Pt has dialysis MWF. During November 2017 admission pt d/c independent. Awaiting PT recommendations after eval. Case Management d/c poc: to be determined. Case Management to follow. Date Signed: 01/25/2018 10:55 AM Electronically Signed By:Virginia Peters RN Case Management Discharge Plan Note Case Management Discharge Discharge Order Complete? Answers: Yes Patient to Obtain Answers: Independently Medications Discharge Comments Notes: 01/25/2018 Case Management Note Met w/pt to discuss d/c needs. RAQUEL signed. PT cleared pt to return home independent. Confirmed with pt. Pt to discharge independent with follow up as directed. Date Signed: 01/25/2018 05:10 PM Electronically Signed By:Virginia Peters RN Intervention Information Intervention Type:*RAQUEL-Signed Date of Service:01/25/2018 05:07 PM Patient Type:Observation Staff Member:JEFFREY Peters Hillary Hours: Discipline: Severity: Comment:
--- NOTE | 2018-01-26 01:55 | GDS ---
[f rep st] DISCHARGE SUMMARY DIAGNOSES: 1. Severe symptomatic anemia. 2. Recurrent liposarcoma. 3. End-stage renal disease, on dialysis. 4. Failure to thrive. 5. History of atrial fibrillation, isolated. 6. Benign prostatic hypertrophy. 7. PIC associated deep venous thrombosis. 8. Status post nephrectomy for liposarcoma. CONSULTATIONS: Dr. Hu [facility] COURSE: The patient is a 77-year-old man, initially diagnosed in 2007 with a grade 3 liposa rcoma of the retroperitoneum. He underwent wide local excision removing part of his spleen, pancreas and left kidney. He has had recurrent episodes of liposarcoma requiring further resection by Dr. Darby hinton. He comes in today complaining of increasing weakness and was found to have ongoing acute on steak sauce maker savanah anemia. He has been previously worked up with Gastroenterology in the recent past, with unclear evidence of findings of the cause for his anemia. However, he denies any symptoms of bleeding includ ing melena or blood in his stool, hematemesis, etc. He was admitted to the hospital, given 2 units p acked red blood cells. He continues to feel weak, but was feeling well enough to go home and he was anxious to be discharged and follow up with his dialysis in the a.m. His electrolytes were stable. He had no other obvious cause for his weakness. He tolerated the transfusions well and will be follo wing up tomorrow with his Nephrology. CONDITION ON DISCHARGE: Good. Vital signs are stable. He is alert and oriented. No chest pain. L ungs are clear. Heart is regular. DISCHARGE MEDICATIONS: Please see discharge medication list. FOLLOWUP: He will follow up with dialysis tomorrow. He has followup scheduled with his [facility] era coming up this week and will follow up with Oncology as well. /[id number]/MODL
== END 2018-01-25 19:20 | disposition home or self-care (01) ==
LOC: F1N 16:44
PROVIDERS: ADMIT Family Medicine; ATTEND Internal Medicine
PROC: 30233N1 Transfusion of Nonautologous Red Blood Cells into Peripheral Vein, Percutaneous Approach (ICD-10-PCS; principal; 2018-01-24)
DX: R62.7 Adult failure to thrive (principal); D63.1 Anemia in chronic kidney disease; E86.9 Volume depletion, unspecified; D63.0 Anemia in neoplastic disease; C48.0 Malignant neoplasm of retroperitoneum; N18.6 End stage renal disease; N40.0 Benign prostatic hyperplasia without lower urinary tract symptoms; Z90.5 Acquired absence of kidney; Z99.2 Dependence on renal dialysis
CPT/HCPCS: 36430; 93005; 96360; 97161; 99285; G0378; G8978; G8979; G8980; P9016; 84134-90

== ENCOUNTER 2018-03-25 16:27 | Emergency (ER) | payer OTHER ==
--- NOTE | 2018-03-25 17:11 | EDPHY ---
H & P Stated Complaint: WANTS A TRANSFUSION DIALYSIS PT Time Seen by Provider: 03/25/18 17:13 HPI/ROS: HPI: This is a 77-year-old male who presents with Chief Complaint: Low hemoglobin of 6.1 on Friday, requesting transfusion Location: body Quality: Low hemoglobin Duration: 2 days ago Signs and Symptoms: no fever, no nausea, no vomiting, no diarrhea, no urinary symptoms, no chest pain, no shortness of breath, no wheezing, no cough, no sore throat, no neck stiffness, no joint pain, no swollen glands, no ear pain, no rash Timing: Acute on chronic Severity: Moderate to severe Context: Patient has a history of liposarcoma, end-stage renal disease on hemodialysis Friday schedule presents with complaints of low hemoglobin of 6.1 from labs drawn on Friday. Patient is requesting a blood transfusion. He reports his last blood transfusion was approximately 2 months ago at this hospital. He did go to dialysis today and completed the full course. He denies any fever, shortness of breath, nausea, vomiting. He reports that he feels generalized fatigue. He does have a history of esophageal ulcer and anemia is thought to be multifactorial of end-stage renal disease and ulcer hemorrhage. He denies any abdominal pain, blood in stool, hematemesis. Blood type is B-positive. Modifying Factors: None Comment: ROS: see HPI Constitutional: No fever, no chills, no weight loss Eyes: No blurred vision Respiratory: No shortness of breath, no cough Cardiovascular: No chest pain, no palpitations Gastrointestinal: No nausea, no vomiting, no diarrhea, no hematemesis, no blood in stool Genitourinary: No dysuria, no blood in urine Extremities: No myalgias, no edema Neurologic: No weakness, no numbness Skin: No rashes, no petechiae Hematologic: No bruising, no bleeding MEDICAL/SURGICAL/SOCIAL HISTORY: Medical history: LIPOSARCOMA/HERNIA/KIDNEY FAILURE WITH DIALYSIS/esophageal ulcer Surgical history: Denies Social history: Retired. Nonsmoker. Family history noncontributory. CONSTITUTIONAL: Chronically ill-appearing elderly white male, awake and alert, no obvious distress HEENT: Atraumatic and normocephalic, PERRL, EOMI. Nares patent; no rhinorrhea; no nasal mucosal edema. Tympanic membranes clear. Oropharynx clear, no exudate and moist pink mucosa. Airway patent. No lymphadenopathy. No meningismus. Cardiovascular: Normal S1/S2, regular rate, regular rhythm, without murmur rub or gallop. PULMONARY/CHEST: Symmetrical and nontender. Clear to auscultation bilaterally. Good air movement. No accessory muscle usage. ABDOMEN: Soft, nondistended, nontender, no rebound, no guarding, no peritoneal signs, no masses or organomegaly. No CVAT. EXTREMITIES: 2/2 pulses, strength 5/5, right AV fistula noted; no deformities, no clubbing, no cyanosis or edema. NEUROLOGICAL: no focal neuro deficits. GCS 15. SKIN: Warm and dry, pallor, no erythema. no rash. Good capillary refill. Source: Patient Exam Limitations: No limitations - Personal History Current Tetanus Diphtheria and Acellular Pertussis (TDAP): Yes - Medical/Surgical History Hx Asthma: No Hx Chronic Respiratory Disease: No Hx Diabetes: No Hx Cardiac Disease: Yes Hx Renal Disease: Yes Hx Cirrhosis: No Hx Alcoholism: No Hx HIV/AIDS: No Hx Splenectomy or Spleen Trauma: Yes Other PMH: LIPOSARCOMA/HERNIA/KIDNEY FAILURE WITH DIALYSIS/esophageal ulcer - Social History Smoking Status: Never smoked Constitutional: Initial Vital Signs Temperature (C) 37.1 C 03/25/18 16:35 Heart Rate 90 03/25/18 16:35 Respiratory Rate 18 03/25/18 16:35 Blood Pressure 119/69 03/25/18 16:35 O2 Sat (%) 95 03/25/18 16:35 O2 Delivery Mode Room Air O2 (L/minute) 2 Allergies/Adverse Reactions: hydrocodone Allergy (Mild, Verified 03/25/18 16:34) GI upset Home Medications: Medication Instructions Recorded Cyanocobalamin (Vitamin B-12) 2,500 mcg PO DAILY 03/25/18 [Vitamin B12] Finasteride [Proscar 5 MG (*)] 5 mg PO DAILY 03/25/18 Multivitamins [Multivitamin (*)] 1 each PO DAILY 03/25/18 Ondansetron Odt [Zofran Odt 4 mg 4 mg PO QID PRN 03/25/18 (*)] Medical Decision Making ED Course/Re-evaluation: Placed on adult basic studies teacher and oxygen therapy upon arrival. Vital signs reviewed and stable. Labs, stool occult blood and transfusion of 2 units packed red blood cells ordered. 1802: Labs reviewed. H&H 6.7/21.7, creatinine 1.5, potassium 3.5 1729: ED decision to consult for admission for severe symptomatic anemia secondary to end-stage renal disease. Spoke with hospitalist, Dr. Betancourt, who advised that patient is hemodynamically stable and appropriate to treat with outpatient blood transfusion. 1939: Reassessed patient. Blood transfusion just started. 2049: Second unit blood transfusion started. 2356: 2nd unit of blood transfusion completed. Vital signs stable. Patient discharged home. No signs of anaphylaxis, shortness of breath, fever, dizziness. This patient was seen under the supervision of my secondary supervising physician. I evaluated care for this patient independently. Discussed this patient with Dr. Hickman. Differential Diagnosis: Weakness including but not limited to electrolyte abnormality, depression, anxiety, CVA, spinal cord abnormality, and infectious causes. - Data Points Laboratory Results: Laboratory Results 03/25/18 17:05 03/25/18 17:05 03/25/18 03/25/18 03/25/18 17:05 17:05 17:04 WBC 8.72 10^3/uL 10^3/uL (3.80-9.50) RBC 2.52 10^6/uL L 10^6/uL (4.40-6.38) Hgb 6.7 g/dL L g/dL (13.7-17.5) Hct 21.7 % L % (40.0-51.0) MCV 86.1 fL fL (81.5-99.8) MCH 26.6 pg L pg (27.9-34.1) MCHC 30.9 g/dL L g/dL (32.4-36.7) RDW 20.1 % H % (11.5-15.2) Plt Count 510 10^3/uL H 10^3/uL (150-400) MPV 10.0 fL fL (8.7-11.7) Neut % (Auto) 74.1 % % (39.3-74.2) Lymph % (Auto) 14.7 % L % (15.0-45.0) [place] % (Auto) 8.9 % % (4.5-13.0) Eos % (Auto) 1.6 % % (0.6-7.6) Baso % (Auto) 0.2 % L % (0.3-1.7) Nucleat RBC Rel Count 0.0 % % (0.0-0.2) Absolute Neuts (auto) 6.46 10^3/uL 10^3/uL (1.70-6.50) Absolute Lymphs (auto) 1.28 10^3/uL 10^3/uL (1.00-3.00) Absolute Monos (auto) 0.78 10^3/uL 10^3/uL (0.30-0.80) Absolute Eos (auto) 0.14 10^3/uL 10^3/uL (0.03-0.40) Absolute Basos (auto) 0.02 10^3/uL 10^3/uL (0.02-0.10) Absolute Nucleated RBC 0.00 10^3/uL 10^3/uL (0-0.01) Immature Gran % 0.5 % % (0.0-1.1) Immature Gran # 0.04 10^3/uL 10^3/uL (0.00-0.10) Platelet Estimate INCREASED H (ADEQ) Microcytic Cells 1+ H Target Cells 2+ H Smear Review By Pending Sodium 139 mEq/L mEq/L (135-145) Potassium 3.5 mEq/L mEq/L (3.3-5.0) Chloride 95 mEq/L L mEq/L (97-110) Carbon Dioxide 36 mEq/l H mEq/l (22-31) Anion Gap 8 mEq/L mEq/L (8-16) BUN 14 mg/dL mg/dL (7-23) Creatinine 1.5 mg/dL H mg/dL (0.7-1.3) Estimated GFR 46 Glucose 143 mg/dL H mg/dL (70-100) Calcium 8.5 mg/dL mg/dL (8.5-10.4) Patient ABO/Rh B POSITIVE Antibody Screen NEGATIVE Crossmatch IS Only See Detail Enhanced Crossmatch See Detail Departure - Departure Disposition: Home, Routine, Self-Care Clinical Impression: ESRD on hemodialysis, Severe anemia Condition: Good Instructions: Dialysis Diet (DC), Anemia (ED), End Stage Kidney Disease (ED) Additional Instructions: Please keep your normal dialysis schedule. Follow up with Nephrology as planned. Return at once for any worsening symptoms or concerns. Referrals: Hay Owens MD [Primary Care Provider] - As per Instructions [facility] [[facility]] - As per Instructions (Keep hemodialysis appointment on Friday and follow up with Nephrology as directed. )
[2018-03-25 17:37] LABS: PLATELET COUNT 510 10^3/uL (150-400)
[2018-03-25 23:57] VITALS: BP 155/67
== END 2018-03-26 00:20 | disposition home or self-care (01) ==
PROC: 30233N1 Transfusion of Nonautologous Red Blood Cells into Peripheral Vein, Percutaneous Approach (ICD-10-PCS; principal; 2018-03-25)
DX: D64.9 Anemia, unspecified (principal); N18.6 End stage renal disease
CPT/HCPCS: 36430; 99285; P9016

== ENCOUNTER 2018-05-20 21:02 | Observation (INO) | payer OTHER ==
[2018-05-20 21:41] LABS: PLATELET COUNT 501 10^3/uL (150-400)
[2018-05-20 21:59] LABS: INR 1.15 (0.83-1.16); PROTIME(PATIENT) 14.9 SEC (12.0-15.0)
--- NOTE | 2018-05-20 22:10 | EDPHY ---
H & P Time Seen by Provider: 05/20/18 21:30 HPI/ROS: HPI Anemia, wants a transfusion. 78-year-old male by private vehicle with his . This patient has a history of metastatic liposarcoma. Secondary to this he has had a left-sided nephrectomy, splenectomy, most of his pancreas removed. He states that his right kidney is able to get rid of fluids but not toxins. He is on hemodialysis on Wednesdays and Fridays. He has a history of anemia. Etiology of this is unclear at this time. He is required 6 or 7 transfusions since October. He reports that earlier this week he had a bowel movement with blackish stool. Denies any gross rectal bleeding. He reports he feels very weak and lightheaded and unsteady on his feet because of this. ROS: Constitutional: No fever, no chills. As above. Eyes: No discharge. No changes in vision. ENT: No sore throat. No nasal congestion or rhinorrhea. Respiratory: No cough. No shortness of breath. Cardiac: No chest pain, no palpitations. Gastrointestinal: No abdominal pain, no vomiting, no diarrhea. As above. Genitourinary: No hematuria. No dysuria or increased frequency with urination. Musculoskeletal: No back pain. No neck pain. No myalgias or arthralgias. Skin: No rashes. Neurological: No headache. No focal weakness or altered sensation. 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 He currently is not on chemotherapy or radiation therapy. His general surgeon is Dr. Casimiro Pete. His oncologist is Dr. Barksdale. 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 End-stage renal disease, dialyzed Friday, Friday and Friday. Is able to make urine. Social history: He is here with his . No alcohol. Nonsmoker. Physical Exam: General Appearance: Alert, no distress. He appears thin and cachectic. This patient is responding to questions appropriately and in full sentences. This patient appears well-hydrated and well-nourished. Eyes: Pupils equal and round no pallor or injection. No lid edema, erythema or injection. Respiratory: There are no retractions, lungs are clear to auscultation with good air movement bilaterally. Cardiovascular: Regular rate and rhythm. No murmur. Gastrointestinal: Multiple surgical scars noted. Abdomen is soft and nontender , questionable left upper quadrant mass, bowel sounds normal. No focal tenderness at McBurney's point. No Orr sign. Rectal exam: Normal tone, no gross blood, blackish stool. Neurological: Motor sensory function is grossly intact. Cranial nerves are normal. Gait is normal. Skin: Warm and dry, no rashes. Musculoskeletal: Neck is supple and nontender. Extremities are symmetrical. All joints range without pain or impingement. Psychiatric: No agitation. No depression. Database: EKG: EKG time is 9:41 p.m.; EKG shows a narrow complex normal sinus rhythm with a ventricular rate of 76. The [facility], QRS, QT intervals are within normal limits. There are no ST-T wave changes indicative of ischemic or injury pattern. No evidence of right heart strain. Interpreted by me. Imaging: Chest x-ray PA and lateral; the cardiac mediastinal silhouette is unremarkable. No evidence of infiltrate or pneumothorax. No acute cardiopulmonary disease process noted. Interpreted by me. Procedures: Emergency department course: Triage vital signs reviewed and are normal. Large-bore IV was placed left upper extremity. Appropriate blood work and type and screen sent. EKG obtained and reviewed by myself. Discussed admission to the hospitalist service with the patient and his . They endorse. 10:30 p.m., spoke with on-call hospitalist Dr. Lyons. Case discussed in detail with him. The patient's vital signs have remained stable throughout his emergency department course. Will hold emergency department transfusion for now. Dr. To would like to evaluate the patient 1st. We will also obtain a baseline chest x-ray. His concern of courses fluid overload. I feel this is reasonable. The patient's remaining emergency department course under my care has been uneventful. He was admitted under the care of the hospitalist service in stable condition, 1 [place]. Differential Diagnosis: The differential diagnosis on this patient includes but is not limited to renal failure, chronic anemia with acute worsening secondary to gastrointestinal bleeding. This represents a partial list of diagnoses considered. These considerations are based on history, physical exam, past history, reassessment and diagnostic testing. Smoking Status: Never smoked Constitutional: Initial Vital Signs Temperature (C) 36.8 C 05/20/18 21:04 Heart Rate 86 05/20/18 21:04 Respiratory Rate 18 05/20/18 21:04 Blood Pressure 133/62 H 05/20/18 21:04 O2 Sat (%) 99 05/20/18 21:04 O2 Delivery Mode Room Air Allergies/Adverse Reactions: hydrocodone Allergy (Mild, Verified 05/20/18 21:03) GI upset Home Medications: Medication Instructions Recorded Cyanocobalamin (Vitamin B-12) 2,500 mcg PO DAILY 03/25/18 [Vitamin B12] Finasteride [Proscar 5 MG (*)] 5 mg PO DAILY 03/25/18 Multivitamins [Multivitamin (*)] 1 each PO DAILY 03/25/18 Ondansetron Odt [Zofran Odt 4 mg 4 mg PO QID PRN 03/25/18 (*)] Medical Decision Making - Data Points Laboratory Results: Laboratory Results 05/20/18 21:30 05/20/18 21:30 05/20/18 05/20/18 05/20/18 22:00 21:30 21:30 WBC RBC Hgb Hct MCV MCH MCHC RDW Plt Count MPV Neut % (Auto) Lymph % (Auto) [place] % (Auto) Eos % (Auto) Baso % (Auto) Nucleat RBC Rel Count Absolute Neuts (auto) Absolute Lymphs (auto) Absolute Monos (auto) Absolute Eos (auto) Absolute Basos (auto) Absolute Nucleated RBC Immature Gran % Immature Gran # PT 14.9 SEC SEC (12.0-15.0) INR 1.15 (0.83-1.16) APTT 36.3 SEC SEC (23.0-38.0) Sodium Potassium Chloride Carbon Dioxide Anion Gap BUN Creatinine Estimated GFR Glucose Calcium Stool Occult Bld Scrn POSITIVE H (NEGATIVE) Patient ABO/Rh B POSITIVE Antibody Screen NEGATIVE 05/20/18 05/20/18 21:30 21:30 WBC 7.87 10^3/uL 10^3/uL (3.80-9.50) RBC 2.75 10^6/uL L 10^6/uL (4.40-6.38) Hgb 7.4 g/dL L g/dL (13.7-17.5) Hct 23.9 % L % (40.0-51.0) MCV 86.9 fL fL (81.5-99.8) MCH 26.9 pg L pg (27.9-34.1) MCHC 31.0 g/dL L g/dL (32.4-36.7) RDW 18.4 % H % (11.5-15.2) Plt Count 501 10^3/uL H 10^3/uL (150-400) MPV 9.7 fL fL (8.7-11.7) Neut % (Auto) 66.2 % % (39.3-74.2) Lymph % (Auto) 19.7 % % (15.0-45.0) [place] % (Auto) 11.8 % % (4.5-13.0) Eos % (Auto) 1.4 % % (0.6-7.6) Baso % (Auto) 0.4 % % (0.3-1.7) Nucleat RBC Rel Count 0.0 % % (0.0-0.2) Absolute Neuts (auto) 5.21 10^3/uL 10^3/uL (1.70-6.50) Absolute Lymphs (auto) 1.55 10^3/uL 10^3/uL (1.00-3.00) Absolute Monos (auto) 0.93 10^3/uL H 10^3/uL (0.30-0.80) Absolute Eos (auto) 0.11 10^3/uL 10^3/uL (0.03-0.40) Absolute Basos (auto) 0.03 10^3/uL 10^3/uL (0.02-0.10) Absolute Nucleated RBC 0.00 10^3/uL 10^3/uL (0-0.01) Immature Gran % 0.5 % % (0.0-1.1) Immature Gran # 0.04 10^3/uL 10^3/uL (0.00-0.10) PT INR APTT Sodium 139 mEq/L mEq/L (135-145) Potassium 4.2 mEq/L mEq/L (3.3-5.0) Chloride 91 mEq/L L mEq/L (97-110) Carbon Dioxide 35 mEq/l H mEq/l (22-31) Anion Gap 13 mEq/L mEq/L (6-14) BUN 35 mg/dL H mg/dL (7-23) Creatinine 2.3 mg/dL H mg/dL (0.7-1.3) Estimated GFR 28 Glucose 117 mg/dL H mg/dL (70-100) Calcium 9.0 mg/dL mg/dL (8.5-10.4) Stool Occult Bld Scrn Patient ABO/Rh Antibody Screen Departure - Departure Disposition: [facility] Inpatient Acute Clinical Impression: Anemia, Gastrointestinal bleeding, History of liposarcoma, Renal failure
[2018-05-20] MEDS ORDERED: ACETAMINOPHEN 325 MG TAB PO PRN (22:26)
[2018-05-20] MEDS ORDERED: ONDANSETRON 4 MG/2 ML VIAL IVP PRN (22:26)
[2018-05-20] MEDS ORDERED: ONDANSETRON DISINTEGRATING 4 MG TAB PO PRN (22:26)
--- NOTE | 2018-05-20 22:54 | CPEKG ---
Test Reason : OPEN Blood Pressure : / mmHG Vent. Rate : 076 BPM Atrial Rate : 077 BPM P-R Int : 140 ms QRS Dur : 101 ms QT Int : 418 ms P-R-T Axes : 064 035 037 degrees QTc Int : 471 ms Sinus rhythm Confirmed by Paul Tai [id number]) on 05/20/2018 10:53:34 PM Referred By: Confirmed By:Paul Tai
--- NOTE | 2018-05-21 00:26 | PDGENHP ---
History and Physical - Chief Complaint Fatigue, melena - History of Present Illness 78 yo M w/ hx of liposarcoma, ESRD, chronic anemia, AF, and BPH presents with fatigue and melena. Patient has been feeling somewhat lightheaded and fatigued today. He states this is how he feels when he needs a transfusion. He was admitted here in January and received 2 u pRBC's. He has been dealing with chronic anemia for several months. The cause of this has not been entirely clear aside from known cancer and kidney disease. He had a Hgb checked in HD on Friday and the result was 7.4. Hgb is stable from this value today. He also noted a dark, tarry stool on Friday. Rectal exam in the ED revealed melena again but he denies any melanotic stools since Friday. FOBT was positive in the ED. He denies infectious ROS. Case discussed with ED physician Dr. Tai; records reviewed in EMR including most recent DC Summary by Nicole Maza dated 01/26/18. History Information - Allergies/Home Medication List Allergies/Adverse Reactions: hydrocodone Allergy (Mild, Verified 05/20/18 21:03) GI upset Home Medications: Cyanocobalamin (Vitamin B-12) [Vitamin B12] 2,500 mcg PO DAILY 03/25/18 [Last Taken Unknown] Finasteride [Proscar 5 MG (*)] 5 mg PO DAILY 03/25/18 [Last Taken Unknown] Multivitamins [Multivitamin (*)] 1 each PO DAILY 03/25/18 [Last Taken Unknown] Ondansetron Odt [Zofran Odt 4 mg (*)] 4 mg PO QID PRN 03/25/18 [Last Taken 03/24] I have personally reviewed and updated: family history, medical history - Past Medical History atrial fibrillation, cancer, ESRD Additional medical history: BPH - Surgical History Additional surgical history: Multiple cancer surgeries - Family History Additional family history: Denies family hx of cancer - Social History Smoking Status: Never smoked Review of Systems Review of Systems: ROS: 10pt was reviewed & negative except for what was stated in HPI & below Physical Exam Physical Exam: Temp Pulse Resp BP Pulse Ox 36.7 C 81 16 153/60 H 94 05/21/18 00:20 05/21/18 00:20 05/21/18 00:20 05/21/18 00:20 05/21/18 00:20 Constitutional: no apparent distress, chronically ill appearing Eyes: PERRL, EOMI Ears, Nose, Mouth, Throat: moist mucous membranes, no oral mucosal ulcers Cardiovascular: regular rate and rhythym, systolic murmur Respiratory: no respiratory distress, clear to auscultation Gastrointestinal: normoactive bowel sounds, soft, non-tender abdomen Skin: warm, normal color Musculoskeletal: full muscle strength, no muscle tenderness Neurologic: AAOx3, CN II-XII Intact Psychiatric: interacting appropriately, not anxious Lab Data & Imaging Review 05/20/18 21:30 05/20/18 21:30 WBC 7.87 10^3/uL (3.80-9.50) 05/20/18 21:30 RBC 2.75 10^6/uL (4.40-6.38) L 05/20/18 21:30 Hgb 7.4 g/dL (13.7-17.5) L 05/20/18 21:30 Hct 23.9 % (40.0-51.0) L 05/20/18 21:30 MCV 86.9 fL (81.5-99.8) 05/20/18 21:30 MCH 26.9 pg (27.9-34.1) L 05/20/18 21:30 MCHC 31.0 g/dL (32.4-36.7) L 05/20/18 21:30 RDW 18.4 % (11.5-15.2) H 05/20/18 21:30 Plt Count 501 10^3/uL (150-400) H 05/20/18 21:30 MPV 9.7 fL (8.7-11.7) 05/20/18 21:30 Neut % (Auto) 66.2 % (39.3-74.2) 05/20/18 21:30 Lymph % (Auto) 19.7 % (15.0-45.0) 05/20/18 21:30 [place] % (Auto) 11.8 % (4.5-13.0) 05/20/18 21:30 Eos % (Auto) 1.4 % (0.6-7.6) 05/20/18 21:30 Baso % (Auto) 0.4 % (0.3-1.7) 05/20/18 21:30 Nucleat RBC Rel Count 0.0 % (0.0-0.2) 05/20/18 21:30 Absolute Neuts (auto) 5.21 10^3/uL (1.70-6.50) 05/20/18 21:30 Absolute Lymphs (auto) 1.55 10^3/uL (1.00-3.00) 05/20/18 21:30 Absolute Monos (auto) 0.93 10^3/uL (0.30-0.80) H 05/20/18 21:30 Absolute Eos (auto) 0.11 10^3/uL (0.03-0.40) 05/20/18 21:30 Absolute Basos (auto) 0.03 10^3/uL (0.02-0.10) 05/20/18 21:30 Absolute Nucleated RBC 0.00 10^3/uL (0-0.01) 05/20/18 21:30 Immature Gran % 0.5 % (0.0-1.1) 05/20/18 21:30 Immature Gran # 0.04 10^3/uL (0.00-0.10) 05/20/18 21:30 PT 14.9 SEC (12.0-15.0) 05/20/18 21:30 INR 1.15 (0.83-1.16) 05/20/18 21:30 APTT 36.3 SEC (23.0-38.0) 05/20/18 21:30 Sodium 139 mEq/L (135-145) 05/20/18 21:30 Potassium 4.2 mEq/L (3.3-5.0) 05/20/18 21:30 Chloride 91 mEq/L (97-110) L 05/20/18 21:30 Carbon Dioxide 35 mEq/l (22-31) H 05/20/18 21:30 Anion Gap 13 mEq/L (6-14) 05/20/18 21:30 BUN 35 mg/dL (7-23) H 05/20/18 21:30 Creatinine 2.3 mg/dL (0.7-1.3) H 05/20/18 21:30 Estimated GFR 28 05/20/18 21:30 Glucose 117 mg/dL (70-100) H 05/20/18 21:30 Calcium 9.0 mg/dL (8.5-10.4) 05/20/18 21:30 Stool Occult Bld Scrn POSITIVE (NEGATIVE) H 05/20/18 22:00 Patient ABO/Rh B POSITIVE 05/20/18 21:30 Antibody Screen NEGATIVE 05/20/18 21:30 Crossmatch IS Only See Detail 05/20/18 21:30 Imaging Review: Imaging Impressions Chest X-Ray 05/20/18 22:25 Impression: 1. Clear lungs. No acute process. 2. Gastric pull-through and left basilar scarring are unchanged. Visualized and Interpreted EKG results: Yes EKG Interpretation: Positive for: normal sinsus rhythm Assessment & Plan Assessment: 78 yo M w/ liposarcoma, ESRD, and chronic anemia presents with acute on chronic anemia and melena. Plan: 1. Acute on chronic anemia, melena - Hgb 7.4 today; patient tells me Hgb was the same in HD 2 days prior to admission. Acute drop compared to last month may be due to melena, which patient states he noted once on Friday. Noting stability in laboratory values, blood loss appears quite mild at this point. Chronic anemia likely due to malignancy and renal disease. - Admit for observation - Transfuse 1u pRBC now - Monitor CBC - He has had prior GI evaluation previously without etiology of bleeding found. If Hgb does not correct appropriately, consider inpatient GI consult. If H/H remains stable, likely appropriate for outpatient evaluation 2. Grade III Liposarcoma - He was initially treated surgically (wide local excision of spleen, pancreas, L kidney); recurrent so required repeat surgical intervention by Dr. Pete. Last treated with XRT in January and February of this year. He has been working on gaining weight prior to future treatment. 3. ESRD - Receives HD MWF; still makes urine. - Avoid nephrotoxic agents, renally dose medications 4. Hx AF - In NSR on admission (ECG personally reviewed/interpreted). 5. BPH - Continue home medications pending reconciliation. Diet - Regular Code - Full Ppx - SCDs Dispo - Admit under observation status
[2018-05-21 03:57] VITALS: BP 110/58
[2018-05-21 08:24] LABS: PLATELET COUNT 450 10^3/uL (150-400)
[2018-05-21] MEDS ORDERED: CYANO/VITAMIN B12 1000 MCG TAB PO SCH (09:00)
[2018-05-21] MEDS ORDERED: MULTIVITAMINS 1 EACH TAB PO SCH (09:00)
[2018-05-21] MEDS ORDERED: FINASTERIDE 5 MG TAB PO SCH (09:00)
[2018-05-21] MEDS ORDERED: PANTOPRAZOLE SODIUM 40 MG TAB PO SCH (11:15)
--- NOTE | 2018-05-21 11:15 | PDDCSUM ---
Discharge Summary Discharge Summary: Date of Admission: 05/20/2018 Date of Discharge: 05/21/2018 Consults: GI Procedures: N/A F/u: PCP, GI, Nephrology Hospital Course Problem List: 78 yo M w/ liposarcoma, ESRD, and chronic anemia presents with acute on chronic anemia and melena. Plan: 1. Acute on chronic anemia, melena - Hgb 7.4 today; the same in HD 2 days prior to admission. -Acute drop compared to last month may be due to melena, which patient states he noted once on Friday. - Noting stability in laboratory values, blood loss appears quite mild at this point. Chronic anemia likely due to malignancy and renal disease. - Discussed with GI, Dr. Austin this morning, he recommends no endoscopy at this juncture, place on PO PPI for 2 months and he will schedule f/u as an outpatient for further evaluation and management - S/p 1 unit of PRBC, Hgb 7.8 this AM - Monitor CBC, patient has labs planned for Friday at dialysis - I discussed the need for erythpoetin in the setting of anemia and ESRD, he believes he is on an injection qweekly, I left message with pricer bagger, Dr. Owens to discuss 2. Grade III Liposarcoma - He was initially treated surgically (wide local excision of spleen, pancreas, L kidney); recurrent so required repeat surgical intervention by Dr. Pete. Last treated with XRT in January and February of this year. He has been working on gaining weight prior to future treatment. 3. ESRD - Receives HD MWF; still makes urine. 4. Hx AF - In NSR on admission 5. BPH - Continue home medications Time spent on discharge was >35 minutes with >50% of time spent on patient education and counseling.
--- NOTE | 2018-05-21 12:11 | ASDISCHSUM ---
Discharge Information Plan Status:Home with No Needs Medically Cleared to Leave:05/21/2018 Discharge Date:05/21/2018 CM D/C Disposition:Home, Routine, Self-Care ADT D/C Disposition: Projected Discharge Date:05/21/2018 Transportation at D/C:Friend Discharge Delay Reason: Follow-Up Date:05/21/2018 Discharge Slot: Final Diagnosis:anemia renal failure, GI bleed, liposarcoma Placement Information Patient Contact Information Contact Name:CAMMYJOSELO Relationship:Friend Address: City:[place] Alternate Phone: [facility]/Zip Code:[place] [address] Email: Financial Information Financial Class:Medicare Primary Plan Desc:MEDICARE OUTPATIENT Primary Plan Number:[id number] Secondary Plan Desc:[facility] Secondary Plan Number:[id number] Assessment Information LACE LACE Length of stay for Answers: Less than 1 day current admission Acuity / Level of Answers: No Care: Did the patient have an inpatient admission? Comorbidities - select Answers: Moderate or severe liver all that apply or renal disease Other Notes: AFib, Cancer # of Emergency department Answers: 3-4 visits in the last 6 months Social determinants Answers: Lack of community resources and/or lack of social support (no pcp, lives alone, transportation, diana d) Score: 12 Date Signed: 05/21/2018 12:09 PM Electronically Signed By:Guadalupe Coles Case Management Discharge Plan Note Case Management Discharge Discharge Order Complete? Answers: Yes Patient to Obtain Answers: Other Notes: friend Medications Transportation Arranged Answers: Family/Friends Transport will Pick (Date 05/21/2018 12:00 AM & Time) Discharge Comments Notes: Pt plans to discharge home independently. Pt is comfortable with this plan. Pt declined offer for Meals on Wheels stating the quality of the food was not very good. Pt has a friend who will pick him up and bring him home today. Pt does not feel C would be helpful at this time as he is still quite independent. No further CM needs noted at this time. CM available should needs change. Date Signed: 05/21/2018 12:08 PM Electronically Signed By:Guadalupe Coles Intervention Information Intervention Type:*GARCÍA-Signed Date of Service:05/21/2018 10:59 AM Patient Type:Observation Staff Member:Lindsay Nicolas Hours: Discipline: Severity: Comment:
== END 2018-05-21 12:41 | disposition home or self-care (01) ==
LOC: F3E 05-21
PROVIDERS: ADMIT Student in an Organized Health Care Education/Training Program; ATTEND Internal Medicine
PROC: 30233N1 Transfusion of Nonautologous Red Blood Cells into Peripheral Vein, Percutaneous Approach (ICD-10-PCS; principal; 2018-05-20)
DX: D50.0 Iron deficiency anemia secondary to blood loss (chronic) (principal); C49.9 Malignant neoplasm of connective and soft tissue, unspecified; N18.6 End stage renal disease; N40.0 Benign prostatic hyperplasia without lower urinary tract symptoms; I48.91 Unspecified atrial fibrillation
CPT/HCPCS: 36430; 71046; 93005; 99285; G0378; P9016

== ENCOUNTER → 2018-07-01 | Outpatient (CLI) | payer OTHER | LOC: BHFA 10:00 | PROVIDERS: ATTEND Internal Medicine Cardiovascular Disease | DX: Z51.11 Encounter for antineoplastic chemotherapy (principal) ==

== ENCOUNTER 2018-07-17 14:11 | Outpatient (CLI) | payer OTHER ==
[2018-07-17] MEDS ORDERED: ACETAMINOPHEN 325 MG TAB PO ONE (14:45)
[2018-07-17 17:44] VITALS: BP 158/69
== END 2018-07-17 18:00 | disposition home or self-care (01) ==
LOC: FOBOP 14:11
PROVIDERS: ATTEND Internal Medicine Hematology & Oncology
DX: C49.9 Malignant neoplasm of connective and soft tissue, unspecified (principal); I12.9 Hypertensive chronic kidney disease with stage 1 through stage 4 chronic kidney disease, or unspecified chronic kidney disease; N17.9 Acute kidney failure, unspecified; N18.9 Chronic kidney disease, unspecified; E86.0 Dehydration
CPT/HCPCS: 36430; J1200; P9016

== ENCOUNTER 2018-07-26 11:45 | Inpatient (IN) | payer OTHER ==
--- NOTE | 2018-07-26 11:59 | EDPHY ---
H & P Time Seen by Provider: 07/26/18 11:49 HPI/ROS: CHIEF COMPLAINT: Chest pain, shortness of breath, near-syncope HISTORY OF PRESENT ILLNESS: Patient started having symptoms of pressure in his chest last night. He felt like his whole chest radiating to his neck shoulder and back. Today went to dialysis which is scheduled for Friday instead of tomorrow because of the holiday. He had a 3 hr run and then felt lightheaded dizzy and short of breath and almost passed out. Had oxygen saturation that was low at dialysis in the 70s and was brought here. He notes about a 5 lb weight gain in the past week. No cough. No palpitations. REVIEW OF SYSTEMS: Eye: no change in vision ENT: no sore throat Cardiac: HPI Pulmonary: HPI Abdomen: no vomiting, diarrhea, abdominal pain Musculoskeletal: Some bilateral leg swelling Skin: no rash Neuro: no headache Constitutional: no fever : no urinary symptoms A comprehensive 10 point review of systems is otherwise negative aside from elements mentioned in the history of present illness. PAST MEDICAL HISTORY: Includes atrial fibrillation, liposarcoma, end-stage renal disease. Prostatic hypertrophy. Anemia. Gastric pull-through. Social history: Nonsmoker General Appearance: Alert and conversant, cooperative. Eyes: No scleral icterus. ENT, Mouth: Normal mucous membranes. Respiratory: Decreased breath sounds bilaterally. Cardiovascular: Regular rate and rhythm. 2/6 systolic murmur. Gastrointestinal: Abdomen is soft and non tender. Neurological: Alert, face symmetric, normal motor and sensory in extremities. Skin: Warm and dry, no rashes. Musculoskeletal: 2+ bilateral peripheral edema without calf tenderness. Psychiatric: Not agitated. Emergency Department course/MDM: Plan for EKG and troponin, chest x-ray, D-dimer. 1242: discussed with patient; on Neulasta. WBC significantly elevated could represent primary problem or because of Neulasta, I think acute infection or sepsis is less likely. He says he has 1 kidney that works to clear fluid but not "toxins."Will discuss with proposal coordinator prior to scanning with IV contrast; recommends avoiding contrast if possible to preserve remaining function. V/Q scan, bilateral leg ultrasound ordered. Chest x-ray personally reviewed shows bilateral pleural effusions and basilar infiltrates. CHF more likely than pulmonary infection. Smoking Status: Never smoked Constitutional: Initial Vital Signs Temperature (C) 36.6 C 07/26/18 11:51 Heart Rate 86 07/26/18 11:51 Respiratory Rate 16 07/26/18 11:51 Blood Pressure 184/80 H 07/26/18 11:51 O2 Sat (%) 86 L 07/26/18 11:51 O2 Delivery Mode Room Air Allergies/Adverse Reactions: hydrocodone Allergy (Mild, Verified 05/20/18 21:03) GI upset Home Medications: Medication Instructions Recorded Cyanocobalamin (Vitamin B-12) 2,500 mcg PO DAILY 03/25/18 [Vitamin B12] Multivitamins [Multivitamin (*)] 1 each PO MWF 03/25/18 Biotin [BIOTIN] 5 mg PO DAILY 07/26/18 Dexlansoprazole [Dexilant] 60 mg PO Q7D 07/26/18 Finasteride [Proscar 5 MG (*)] 5 mg PO DAILY 07/26/18 Ondansetron HCl [Zofran] 8 mg PO BID 07/26/18 Ranitidine HCl [Zantac] 150 mg PO DAILY 07/26/18 Medical Decision Making - Diagnostics EKG Interpretation: 12-lead EKG interpreted by me; official reading is in computer system. My interpretation is sinus rhythm with incomplete right bundle branch block, no acute ST changes. Imaging Results: Imaging Impressions Chest X-Ray 07/26/18 12:08 Impression: 1. Moderate CHF suspected. 2. Gastric pull-through retrocardiac location. Imaging: I viewed and interpreted images myself Differential Diagnosis: Differential diagnosis considered for shortness of breath including but not limited to pulmonary infectious process, COPD, asthma, pulmonary embolus and congestive heart failure. Consult/Admit Bed Type: [place] [id number] - Data Points Laboratory Results: Laboratory Results 07/26/18 12:10 07/26/18 12:10 07/26/18 07/26/18 07/26/18 12:13 12:12 12:10 WBC RBC Hgb Hct MCV MCH MCHC RDW Plt Count MPV Neut % (Auto) Lymph % (Auto) [place] % (Auto) Eos % (Auto) Baso % (Auto) Nucleat RBC Rel Count Absolute Neuts (auto) Absolute Lymphs (auto) Absolute Monos (auto) Absolute Eos (auto) Absolute Basos (auto) Absolute Nucleated RBC Immature Gran % Seg Neutrophils % Band Neutrophils % Lymphocytes % Monocytes % Eosinophils % Basophils % Metamyelocytes % Myelocytes % Promyelocytes % Blast Cells % Immature Gran # Absolute Seg Neuts Absolute Band Neuts Absolute Lymphocytes Absolute Monocytes Absolute Eosinophils Absolute Basophils Absolute Metamyelocyte Absolute Myelocytes Absolute Promyelocytes Absolute Plasma Cells Nucleated RBCs Absolute Blast Cells Plasma Cells % Platelet Estimate Large Platelets Giant Platelets Hypochromasia Microcytic Cells Target Cells Oval Macrocytes Smear Review By D-Dimer Sodium 138 mEq/L mEq/L (135-145) Potassium 3.4 mEq/L L mEq/L (3.5-5.2) Chloride 100 mEq/L mEq/L (97-110) Carbon Dioxide 31 mEq/l mEq/l (22-31) Anion Gap 7 mEq/L mEq/L (6-14) BUN 19 mg/dL mg/dL (7-23) Creatinine 1.6 mg/dL H mg/dL (0.7-1.3) Estimated GFR 42 Glucose 86 mg/dL mg/dL (70-100) Calcium 7.2 mg/dL L mg/dL (8.5-10.4) POC Troponin I 0.07 ng/mL ng/mL (0.00-0.08) NT-Pro-B Natriuret Pep 4650 pg/mL H pg/mL (0-450) 07/26/18 07/26/18 12:10 12:10 WBC 58.99 10^3/uL H* 10^3/uL (3.80-9.50) RBC 2.69 10^6/uL L 10^6/uL (4.40-6.38) Hgb 7.7 g/dL L g/dL (13.7-17.5) Hct 23.6 % L % (40.0-51.0) MCV 87.7 fL fL (81.5-99.8) MCH 28.6 pg pg (27.9-34.1) MCHC 32.6 g/dL g/dL (32.4-36.7) RDW 20.1 % H % (11.5-15.2) Plt Count 340 10^3/uL 10^3/uL (150-400) MPV 10.9 fL fL (8.7-11.7) Neut % (Auto) Not Reported Lymph % (Auto) Not Reported [place] % (Auto) Not Reported Eos % (Auto) Not Reported Baso % (Auto) Not Reported Nucleat RBC Rel Count Not Reported Absolute Neuts (auto) Not Reported Absolute Lymphs (auto) Not Reported Absolute Monos (auto) Not Reported Absolute Eos (auto) Not Reported Absolute Basos (auto) Not Reported Absolute Nucleated RBC Not Reported Immature Gran % Not Reported Seg Neutrophils % 93.1 % % Band Neutrophils % 3.9 % % Lymphocytes % 2.0 % % Monocytes % 1.0 % % Eosinophils % 0.0 % % Basophils % 0.0 % % Metamyelocytes % 0.0 % % Myelocytes % 0.0 % % Promyelocytes % 0.0 % % Blast Cells % 0.0 % % Immature Gran # Not Reported Absolute Seg Neuts 54.92 10^3/uL H 10^3/uL (1.70-6.50) Absolute Band Neuts 2.30 10^3/uL H 10^3/uL (0.00-0.70) Absolute Lymphocytes 1.18 10^3/uL 10^3/uL (1.00-3.00) Absolute Monocytes 0.59 10^3/uL 10^3/uL (0.30-0.80) Absolute Eosinophils 0.00 10^3/uL L 10^3/uL (0.03-0.40) Absolute Basophils 0.00 10^3/uL L 10^3/uL (0.02-0.10) Absolute Metamyelocyte 0.00 10^3/mL 10^3/mL (0.00-0.00) Absolute Myelocytes 0.00 10^3/mL 10^3/mL (0.00-0.00) Absolute Promyelocytes 0.00 10^3/uL 10^3/uL (0.00-0.00) Absolute Plasma Cells 0.00 10^3/uL 10^3/uL (0.00-0.00) Nucleated RBCs 0 /100 WBC /100 WBC (0-0) Absolute Blast Cells 0.00 10^3/uL 10^3/uL (0.00-0.00) Plasma Cells % 0.0 % % Platelet Estimate ADEQUATE (ADEQ) Large Platelets PRESENT H Giant Platelets PRESENT H Hypochromasia 2+ H Microcytic Cells 1+ H Target Cells 1+ H Oval Macrocytes 2+ H Smear Review By Pending D-Dimer 1.42 ug/mLFEU H ug/mLFEU (0.00-0.50) Sodium Potassium Chloride Carbon Dioxide Anion Gap BUN Creatinine Estimated GFR Glucose Calcium POC Troponin I NT-Pro-B Natriuret Pep Medications Given: Ondansetron HCl (Zofran Odt) 8 mg PO BID MARCOS Stop: 01/22/19 15:45 Last Admin: 07/26/18 17:16 Dose: 8 mg Point of Care Test Results: Chemistry 07/26/18 12:13 POC Troponin I 0.07 ng/mL ng/mL (0.00-0.08) Departure - Departure Disposition: [facility] Inpatient Acute Clinical Impression: Near syncope Acute respiratory failure Qualifiers: Respiratory failure complication: hypoxia Qualified Code(s): J96.01 - Acute respiratory failure with hypoxia Condition: Fair
--- NOTE | 2018-07-26 12:10 | CPEKG ---
Test Reason : OPEN Blood Pressure : / mmHG Vent. Rate : 073 BPM Atrial Rate : 073 BPM P-R Int : 139 ms QRS Dur : 115 ms QT Int : 443 ms P-R-T Axes : 045 000 038 degrees QTc Int : 489 ms Sinus rhythm Incomplete right bundle branch block Confirmed by Silvino Stewart ([id number]) on 07/26/2018 12:09:44 PM Referred By: Confirmed By:Silvino Stewart
[2018-07-26 12:53] LABS: PLATELET COUNT 340 10^3/uL (150-400)
[2018-07-26] MEDS ORDERED: (Dexlansoprazole [Dexilant] 60 MG) PO SCH (13:15)
[2018-07-26] MEDS ORDERED: HYDROmorphONE/DILAUDID 1 MG/ML INJ IVP PRN (14:20)
[2018-07-26] MEDS ORDERED: oxyCODONE IR 5 MG TAB PO PRN (14:20)
[2018-07-26] MEDS ORDERED: ONDANSETRON 4 MG/2 ML VIAL IVP PRN (14:20)
--- NOTE | 2018-07-26 15:41 | GHP ---
DATE OF ADMISSION: 07/26/2018 CHIEF COMPLAINT: Shortness of breath. HISTORY: Elier is a 78-year-old male with recurrent liposarcoma, last chemotherapy on Friday, yinka devine with Dr. Barksdale. He also required a nephrectomy at the time of his initial liposarcoma resect ion and had to go on to hemodialysis a couple years later. He was sent to the emergency room by his dialysis unit when he was found to be only 70% on room air throughout his dialysis today. The patient says his symptoms started last night. Initially had neck and shoulder pain all last nigh t, which is a pain he has had after chemo in the past. He called it "my bones were sore." He did not eat well yesterday. He developed chest pain across his anterior chest. It is a little pleuritic an d he was short of breath all night long. Shortness of breath continued throughout his dialysis. He has recently gained 5 pounds, which he thought was a true weight gain due to the chemo drug as he had lost a lot of weight with his previous cancer treatments and was trying to intentionally gain weight . He seems to not have an opinion regarding his degree of lower extremity edema. He did have a oral le diarrhea last night. He did get Neulasta with his chemotherapy. PAST MEDICAL HISTORY: 1. Liposarcoma status post resection of spleen, pancreas, and left kidney in 2007. Currently on 3rd line chemotherapy with Dr. Barksdale. 2. End-stage renal disease on hemodialysis. 3. Atrial fibrillation. 4. BPH. 5. Esophagitis and esophageal ulcer. 6. Anemia. MEDICATIONS: Please see computerized record for full detailed list. ALLERGIES: Hydrocodone. SOCIAL HISTORY: No smoking. No alcohol. He lives alone. He is a DNR. His medical sepzy-mt-gwsmwa luis daniel is a friend named Yuko. REVIEW OF SYSTEMS: Complete review of systems obtained. Review of systems negative regarding consti tutional, HEENT, GI, pulmonary, cardiovascular, , hematology, musculoskeletal, endocrine, psych exc ept for positives and negatives as in HPI. FAMILY HISTORY: Reviewed, noncontributory to presenting complaint. PHYSICAL EXAMINATION: GENERAL APPEARANCE: Well developed, well nourished male demonstrating shortne ss of breath with conversation. VITAL SIGNS: Temperature 36.6, pulse 86, blood pressure 184/80, sat ing 86% on room air. HEAD: Normal conjunctivae. Pupils equally reactive to light. ENT: Normal ea rs, nose. Hearing intact. Normal teeth. Oropharynx moist. NECK: Trachea midline. No thyromegaly . CHEST: Increased respiratory effort. LUNGS: Bibasilar rales. No wheeze. CARDIOVASCULAR: Regu lar rate, no murmur. 2+ lower extremity edema. ABDOMEN: Soft, nontender. No hepatosplenomegaly. SKIN: Warm, dry, intact without rash. MUSCULOSKELETAL: No cyanosis or clubbing. Strength 5/5 uppe r and lower extremities. NEURO: Cranial nerves intact, normal sensation to light touch. PSYCHIATRI C: Alert and oriented x3. Normal affect. Normal judgment and insight. Normal memory. LABORATORY DATA: White count 58.99, hematocrit 23.6. Platelets are in the 300s. Sodium 138, potass ium 3.4, chloride 100, bicarb 31, BUN 19, creatinine 1.6, glucose 86. Troponins negative. D-dimer i s 1.42. TEST DATA: EKG reviewed by me. My personal interpretation is normal sinus rhythm with an incomplete right bundle branch block. Chest x-ray shows congestive heart failure. ASSESSMENT/PLAN: 1. Acute respiratory failure as evidenced by saturations of 70% on room air while on hemodialysis. He is now stabilized on 4 L of oxygen. Emergency room was concerned for pulmonary embolus and has a V/Q scan pending. Lower extremity ultrasounds are negative. He does have 1 slightly functional kidn ey for which the patient relates preserve all function possible so he declined IV contrast. I suspect volume overload is contributing to his respiratory status. I have consulted with Dr. Bocanegra to c onsider extra hemodialysis. 2. Acute congestive heart failure exacerbation. Volume removal will be through hemodialysis. I shant l check an echocardiogram. 3. Chest pain. This is more pleuritic than ischemic sounding but will check serial troponins. I am not sure much in the way of an aggressive ischemic evaluation should be undertaken given his advance d malignancy. 4. End-stage renal disease. I have spoken with Dr. Bocanegra as discussed above. 5. Recurrent liposarcoma on 3rd line chemo. Dr. Barksdale is his oncologist. We can involve Oncology during this hospitalization if needed. 6. Leukocytosis. He did receive Neulasta. Will also rule out infection. 7. Hypertension. This is probably due to his volume overload. Will prescribe p.r.n. IV hydralazine as needed for extreme blood pressure elevations. He may need to start an oral medication especially if his echocardiogram reveals significant congestive heart failure. 8. Esophagitis. Continue proton pump inhibitor. CODE STATUS: DNR. ADMISSION STATUS: Will admit to observation. Reevaluate tomorrow regarding ongoing need for hospita lization. DVT PROPHYLAXIS: He is high risk. Will place him on subcu heparin. /[id number]/MODL
--- NOTE | 2018-07-26 16:25 | ASMTCMCOM ---
CM Note CM Note Notes: Pt presented to the ED via EMS from dialysis clinic for SOB, CP, and near-syncope. Pt coming from a dialysis clinic. Pt admitted for hypoxia, SOB, and chest pain. Pt's PMH includes liposarcoma; pt is on 3rd line of chemotherapy and is followed by Dr Barksdale. 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 Pt lives alone. Pt's MDPOA is his friend, Yuko Goodson ([phone], ) (see POA in e-chart from 2012). Pt was admitted 05/20/18 and declined HHC at that time. Exact DC needs TBD but anticipate pt to stabilize and DC home Independent. CM to follow. Date Signed: 07/26/2018 04:24 PM Electronically Signed By:Zoraida Field RN
[2018-07-26] MEDS: ONDANSETRON DISINTEGRATING 4 MG TAB PO SCH ×2 (17:16→23:12)
[2018-07-26] MEDS: HEPARIN 5,000 UNIT/0.5 ML INJ SC SCH (23:06)
[2018-07-26] MEDS: FAMOTIDINE 20 MG TAB PO SCH (23:06)
[2018-07-26] MEDS: hydrALAZINE 20 MG/ML VIAL IVP PRN (23:34)
[2018-07-27 03:53] LABS: PLATELET COUNT 316 10^3/uL (150-400)
--- NOTE | 2018-07-27 07:02 | GCON ---
NEPHROLOGY CONSULTATION DATE OF CONSULTATION: 07/26/2018 REASON FOR CONSULTATION: Shortness of breath, hypertension, hypoxemia. HISTORY OF PRESENT ILLNESS: The patient is a pleasant 78-year-old male with a past medical history s ignificant for end-stage renal disease, initiating dialysis in 2009. He is cared for by Dr. Reza de guzman and dialyzes at the [facility] on a Friday, Friday, Friday schedule. The medardo pedroza was initially diagnosed with a liposarcoma in 2007. He had extensive surgery, ultimately nav ving the spleen, left kidney, adrenal gland, and a portion of his pancreas. He then underwent radiat ion therapy and chemotherapy. The patient ultimately progressed to end-stage renal disease. The jp sanchez has had recurrence of his liposarcoma, and has been treated for this several times since 2014. He has recently been once again initiated on chemotherapy. Based on the holiday schedule, the patient underwent dialysis earlier today. Last evening, prior to the dialysis, the patient did not feel his baseline. He did have substernal chest discomfort that ra diated upward through his precordium and near both shoulders bilaterally. He also had a sense of tom n in his posterior neck. The patient's dialysis went well, but following this, he did feel dizzy. Sheng jordan does not feel his blood pressure dropped. He presented to the emergency room where he was hyperten sive, and his chest x-ray showed bilateral pleural effusions and evidence of volume overload. There was concern for a pulmonary embolus, and a V/Q scan has been performed. This was low probability. I did review his care with the charge nurse at the dialysis unit. The patient typically does not all ow ultrafiltration to occur. His weight had been stable, but has increased by approximately 8 kg sin ce the end of June. With this, he has had some worsening lower extremity edema, and very elevate d blood pressures, in the 170-200 range. He also admits to not eating as well, and states that most recently, his albumin level has decreased. The patient's laboratory studies are notable for an eleva kelly BNP, a hemoglobin of 7.7, and a white count of 59. The latter is thought to be due to an oversho ot from Neulasta, that he has been given with his chemotherapy. Currently, the patient looks comfort able, but he is on 5 L, and saturating at 91%. As related to the above findings, we are asked by the hospitalist service to assist the patient's renal diagnosis and the management. PAST MEDICAL HISTORY: 1. Liposarcoma, recurrent. 2. End-stage renal disease. 3. History of an esophageal ulcer. 4. Atrial fibrillation. 5. BPH and urinary frequency. 6. PICC line associated DVT. SURGICAL HISTORY: Includes: 1. Aforementioned removals of liposarcoma. 2. Partial stomach and partial esophageal removal. 3. Partial thyroidectomy. CURRENT MEDICATIONS: Tylenol p.r.n., famotidine 20 mg daily, Proscar 5 mg daily, heparin subcu q.8 h ours, hydralazine p.r.n., oxycodone p.r.n., vitamin B12 daily. FAMILY HISTORY: Noncontributory. SOCIAL HISTORY: The patient lives by himself. He has a history of being in the [employer]. 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 He does not smoke cigarettes. He has drank some alcohol in the past. REVIEW OF SYSTEMS: He denies fevers, chills, or sweats. He did have a headache with administration of his chemo last week. He wears corrective lenses. He has some rhinitis. He denies odynophagia. He has had some cough and shortness of breath. He had the aforementioned chest pain. He is not havi ng this now. He has intermittent diarrhea. He has urinary frequency and nocturia. He has had some increased lower extremity edema. He does not have focal neurologic problems. He denies skin rashes. He does not have a history of diabetes or thyroid disease. PHYSICAL EXAM: GENERAL: At time of the exam, the patient is appropriate and alert. VITAL SIGNS: T emperature 36.8, pulse is 74, blood pressure 158/66. HEENT: Eyes sclerae clear. Oropharynx clear. NECK: The patient does not have severe jugular venous distention, rather around 12 cm at a 45 degre e supine angle. LUNGS: Dullness in both bases, with rales in the bases, right greater than left. C ARDIOVASCULAR: Regular rate and rhythm with a systolic murmur. ABDOMEN: Nontender. No organomegal y. : Deferred. RECTAL: Deferred. EXTREMITIES: 1 to 2+ pitting edema bilaterally. NEURO: No focal findings. LABORATORY STUDIES: White count 58.9, hematocrit 23.6, platelets 340. Sodium 138, potassium 3.4, ch loride 100, bicarb 31, creatinine 1.6, calcium 7.2, troponin 0.07. IMPRESSION AND PLAN: 1. Hypoxemia. The patient has marked hypoxemia. He has a low probability V/Q scan. He has bilater al pleural effusions and some atelectasis. However, he is hypertensive and volume overloaded. The p atient typically does not allow ultrafiltration with dialysis because of cramping. However, he is ag reeable to trying a puff tonight. We will be conservative tonight attempting 2 kg removal over 2 james rs. Based on this, we will determine the ability to remove further fluid. Based on the holiday [place], his next dialysis run will be on Friday. 2. Chest discomfort. The patient's troponins are negative. His EKG shows an incomplete right bundl e branch block. He will be continued to be monitored. He currently is pain free. 3. Leukocytosis. This is thought to be related to his Neupogen. 4. Anemia. This is significant. He has received any FAUSTINO at his dialysis unit. 5. Liposarcoma and chemotherapy. The patient is being monitored and treated by Dr. Barksdale. Thank you for allowing us to participate in the patient's care. We will continue following closely alphonso villarreal. /[id number]/MODL
--- NOTE | 2018-07-27 09:10 | SOAPPROG ---
SOAP Progress Note Assessment/Plan: Assessment/Plan: ESRD: on HD MWF, HD done yesterday per holiday schedule. - Next HD due on Friday per routine. Hypervolemia: pt had 2L removed last night, but still has some swelling, + crackles and requiring O2. - Will do another PUF today with aim for an additional 3L to be removed. HTN: BP improving, will continue to modulate with fluid removal. Subjective: No acute events overnight. Pt had 2L removed on PUF last night and tolerated fine. He is still requiring O2 via NC this am, still has some swelling. Objective: Vital Signs Temp Pulse Resp BP Pulse Ox 36.8 C 76 14 143/64 H 91 L 07/27/18 07:19 07/27/18 07:19 07/27/18 07:19 07/27/18 07:19 07/27/18 07:19 Microbiology 07/27/18 00:26 Gastrointestinal Tract Panel (PCR) - Final Stool No Organism Detected By Pcr Laboratory Results 07/27/18 02:40 07/27/18 02:40 07/26/18 07/27/18 07/28/18 05:59 05:59 05:59 Intake Total 450 Balance 450 General: alert and oriented, no acute distress Eyes: EOMI, PERRL OP: Clear CV: RRR Resp: nonlabored respirations on NC, +crackles bilaterally Abd: soft, NT Ext: +1 edema BLE Neuro: CN II-XII grossly intact, no asterixis Psych: cooperative, appropriate mood and affect Access: RUE AVF with thrill and bruit appreciated ICD10 Worksheet Patient Problems: Problems Problem Status Onset Acute respiratory failure Acute Near syncope Acute Anemia Acute Anemia of chronic disease Acute Chest pain Acute Chronic renal failure Acute GI bleed Acute Influenza A Acute Pancreatitis Acute Pneumonia Acute Renal failure Acute
[2018-07-27] MEDS: HEPARIN 5,000 UNIT/0.5 ML INJ SC SCH ×3 (10:17→22:27)
[2018-07-27] MEDS: FINASTERIDE 5 MG TAB PO SCH (10:17)
[2018-07-27] MEDS: FAMOTIDINE 20 MG TAB PO SCH (10:17)
[2018-07-27] MEDS: CYANO/VITAMIN B12 1000 MCG TAB PO SCH (10:18)
[2018-07-27] MEDS: ONDANSETRON DISINTEGRATING 4 MG TAB PO SCH ×2 (10:18→22:27)
--- NOTE | 2018-07-27 11:29 | HOSPPROG ---
Hospitalist Progress Note Assessment/Plan: AHRF - 2/2 acute HF. V/Q low probability for PE. 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 Barksdale Leukocytosis - likely 2/2 recent Neulasta after chemo, trending down. No e/o infection -follow Anemia - likely multifactorial: chemo, CKD -will give 1 u prbc's today, discussed with renal Esophagitis - cont PPI and Pepcid H/O A fib - currently NSR, not on AC DNR DVT PPLX - heparin Dispo - change to inpt for ongoing management of hypoxemia and volume overload Subjective: Pt feels very tired. No CP or SOB. Notes small amount of LE swelling. A little SOB, no CP, no fevers. Objective: Vital Signs Temp Pulse Resp BP Pulse Ox 36.6 C 74 17 155/66 H 94 07/27/18 11:06 07/27/18 11:06 07/27/18 11:06 07/27/18 11:06 07/27/18 11:06 Microbiology 07/27/18 00:26 Gastrointestinal Tract Panel (PCR) - Final Stool No Organism Detected By Pcr Laboratory Results 07/27/18 02:40 07/27/18 02:40 07/26/18 07/27/18 07/28/18 05:59 05:59 05:59 Intake Total 450 Balance 450 - Physical Exam Constitutional: no apparent distress Eyes: PERRL Ears, Nose, Mouth, Throat: moist mucous membranes Cardiovascular: regular rate and rhythym Respiratory: no respiratory distress, reduced air movement, inspiratory crackles Gastrointestinal: normoactive bowel sounds, soft, non-tender abdomen Skin: warm Musculoskeletal: full muscle strength, other (1+ b/l LE pitting edema) Neurologic: AAOx3 Psychiatric: interacting appropriately ICD10 Worksheet Patient Problems: Problems Problem Status Onset Acute respiratory failure Acute Chronic Disease Mgmt/Transitional Care Acute Near syncope Acute Anemia Acute Anemia of chronic disease Acute Chest pain Acute Chronic renal failure Acute GI bleed Acute Influenza A Acute Pancreatitis Acute Pneumonia Acute Renal failure Acute
--- NOTE | 2018-07-27 14:08 | ASMTCMCOM ---
CM Note CM Note Notes: Pt seen by PT. They are presently recommending no services, but believe it's possible that this recommendation will change to HCPT. OT is recommending no services following d/c. D/C Plan: Anticipate independent, will follow for changes. Date Signed: 07/27/2018 02:07 PM Electronically Signed By:Lakia Aquino
--- NOTE | 2018-07-27 14:21 | PDMN ---
Medical Necessity Medical necessity: Pt meets INPT criteria per MD as of 07/27/18 and MCG Systemic or Infectious Condition GRG (est. LOS >2 MN for ongoing eval/mgmt of acute hypoxemic respiratory failure, volume overload, ESRD, liposarcoma on chemo , leukocytosis, anemia).
[2018-07-27] MEDS: hydrALAZINE 20 MG/ML VIAL IVP PRN (18:45)
[2018-07-28 08:28] LABS: PLATELET COUNT 258 10^3/uL (150-400)
[2018-07-28] MEDS: FINASTERIDE 5 MG TAB PO SCH (09:52)
[2018-07-28] MEDS: HEPARIN 5,000 UNIT/0.5 ML INJ SC SCH ×3 (09:52→21:36)
[2018-07-28] MEDS: FAMOTIDINE 20 MG TAB PO SCH (09:52)
[2018-07-28] MEDS: ONDANSETRON DISINTEGRATING 4 MG TAB PO SCH ×2 (09:52→21:37)
[2018-07-28] MEDS: CYANO/VITAMIN B12 1000 MCG TAB PO SCH (09:52)
--- NOTE | 2018-07-28 10:12 | SOAPPROG ---
SOAP Progress Note Assessment/Plan: Assessment: 1. ESRD: on HD MWF - Next HD due on Friday per routine. 2. Hypervolemia: pt had 2L removed Friday night and PUF friday -HD tomorrow, aim for 3L to be removed. 3. HTN: BP improving, will continue to modulate with fluid removal. 4. 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 Objective: Vital Signs Temp Pulse Resp BP Pulse Ox 37.0 C 77 12 156/70 H 88 L 07/28/18 07:22 07/28/18 07:22 07/28/18 07:22 07/28/18 07:22 07/28/18 07:22 Laboratory Results 07/28/18 06:00 07/28/18 06:00 07/27/18 07/28/18 07/29/18 05:59 05:59 05:59 Intake Total 830 Output Total 600 Balance 230 Physical Exam - Physical Exam General Appearance: WD/WN, alert, no apparent distress Respiratory: crackles (bases b/l) Cardiac/Chest: regular rate, rhythm Abdomen: non-tender, soft Extremities: other (RUE AVF +br/thrill), No swelling ICD10 Worksheet Patient Problems: Problems Problem Status Onset Acute respiratory failure Acute Chronic Disease Mgmt/Transitional Care Acute Near syncope Acute Anemia Acute Anemia of chronic disease Acute Chest pain Acute Chronic renal failure Acute GI bleed Acute Influenza A Acute Pancreatitis Acute Pneumonia Acute Renal failure Acute
--- NOTE | 2018-07-28 11:10 | HOSPPROG ---
Hospitalist Progress Note Assessment/Plan: AHRF - 2/2 acute HF. V/Q low probability for PE. 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 Barksdale, who was notified of pt's admission yest Leukocytosis - likely 2/2 recent Neulasta after chemo, trending down, much better today. No e/o infection Anemia - likely multifactorial: chemo, CKD. S/P 1 u prbc's. Hgb improved to 9 , no e/o bleeding. Esophagitis - cont PPI and Pepcid H/O A fib - currently NSR, not on AC DNR DVT PPLX - heparin Dispo - cont inpt, possibly home after HD tomorrow. May need HHC. Cont PT/OT evals. Subjective: Pt is bummed, seems sad. Denies CP. Breathing a little better. No fevers/chills. Appetite just fair. Objective: Vital Signs Temp Pulse Resp BP Pulse Ox 37.0 C 77 12 156/70 H 88 L 07/28/18 07:22 07/28/18 07:22 07/28/18 07:22 07/28/18 07:22 07/28/18 07:22 Laboratory Results 07/28/18 06:00 07/28/18 06:00 07/27/18 07/28/18 07/29/18 05:59 05:59 05:59 Intake Total 830 Output Total 600 Balance 230 - Physical Exam Constitutional: no apparent distress, chronically ill appearing Eyes: PERRL Ears, Nose, Mouth, Throat: moist mucous membranes Cardiovascular: regular rate and rhythym Respiratory: no respiratory distress, inspiratory crackles Gastrointestinal: normoactive bowel sounds, soft, non-tender abdomen Skin: warm Musculoskeletal: full muscle strength Neurologic: AAOx3 Psychiatric: interacting appropriately ICD10 Worksheet Patient Problems: Problems Problem Status Onset Acute respiratory failure Acute Chronic Disease Mgmt/Transitional Care Acute Near syncope Acute Anemia Acute Anemia of chronic disease Acute Chest pain Acute Chronic renal failure Acute GI bleed Acute Influenza A Acute Pancreatitis Acute Pneumonia Acute Renal failure Acute
[2018-07-28] MEDS ORDERED: LOPERAMIDE HCL 2 MG CAP PO PRN (18:55)
[2018-07-29] MEDS: ACETAMINOPHEN 325 MG TAB PO PRN ×2 (00:27→12:42)
[2018-07-29] MEDS: HEPARIN 5,000 UNIT/0.5 ML INJ SC SCH ×2 (04:56→14:01)
--- NOTE | 2018-07-29 09:32 | SOAPPROG ---
SOAP Progress Note Assessment/Plan: Assessment: 1. CHF Likely volume related. He is improving with daily UF. We discussed the challenges of finding his true dry weight. At this point, I suspect his true EDW is another 3-4 kg lower than his current weight. He has been reluctant to challenge as he has had a bad experience in the past. I've discussed further with him and with his outpatient voice network administrator. Also, the patient states he has had a recent echo that was interpreted as ok. I am not going to push for a repeat now, as his weight logs have clearly shown an recent increase in weight, and his exam showed his fluid overload. From my standpoint, he can be dc'd today after dialysis. 2. ESRD Standard HD today 3. Leukocytosis Improving. This was due to his neupogen 4. s/p transfusion Subjective: Doing better Objective: Vital Signs Temp Pulse Resp BP Pulse Ox 37.6 C 83 20 160/69 H 92 07/28/18 23:29 07/29/18 08:00 07/29/18 08:00 07/29/18 08:00 07/29/18 08:00 Laboratory Results 07/28/18 06:00 07/29/18 06:20 07/28/18 07/29/18 07/30/18 05:59 05:59 05:59 Intake Total 830 450 Output Total 600 Balance 230 450 Physical Exam - Physical Exam General Appearance: no apparent distress Respiratory: lungs clear Cardiac/Chest: regular rate, rhythm Extremities: pedal edema Neuro/Psych: oriented x 3 ICD10 Worksheet Patient Problems: Problems Problem Status Onset Acute respiratory failure Acute Chronic Disease [facility]/Transitional Care Acute Near syncope Acute Anemia Acute Anemia of chronic disease Acute Chest pain Acute Chronic renal failure Acute GI bleed Acute Influenza A Acute Pancreatitis Acute Pneumonia Acute Renal failure Acute
[2018-07-29] MEDS: CYANO/VITAMIN B12 1000 MCG TAB PO SCH (10:01)
[2018-07-29] MEDS: ONDANSETRON DISINTEGRATING 4 MG TAB PO SCH ×2 (10:01→21:22)
[2018-07-29] MEDS: FAMOTIDINE 20 MG TAB PO SCH (10:02)
[2018-07-29] MEDS: FINASTERIDE 5 MG TAB PO SCH (10:02)
--- NOTE | 2018-07-29 13:15 | ASDISCHSUM ---
Discharge Information Plan Status:Home with No Needs Medically Cleared to Leave:07/28/2018 Discharge Date:07/28/2018 CM D/C Disposition:Home, Routine, Self-Care ADT D/C Disposition:Home, Routine, Self-Care Projected Discharge Date:07/28/2018 Transportation at D/C:Family Discharge Delay Reason: Follow-Up Date:07/28/2018 Discharge Slot: Final Diagnosis: Placement Information Patient Contact Information Contact Name:SAL Relationship:Friend Address: City:[place] Alternate Phone: State/Zip Code:[place] [address] Email: Financial Information Financial Class:Medicare Primary Plan Desc:MEDICARE INPATIENT Primary Plan Number:[id number] Secondary Plan Desc:[facility] Secondary Plan Number:[id number] Assessment Information LACE LACE Length of stay for Answers: 2 days current admission Acuity / Level of Answers: Yes Care: Did the patient have an inpatient admission? Comorbidities - select Answers: Any tumor (including all that apply lymphoma or leukemia) Moderate or severe liver or renal disease Other Notes: A-fib, liposarcoma, ESR D (on HD), esophagitis an d ulcer, anemia, gastric pull-through, BPH, # of Emergency department Answers: 3-4 visits in the last 6 months Score: 15 Date Signed: 07/29/2018 01:13 PM Electronically Signed By:Virginia Peters RN [facility] CM Progress Note CM Note CM Note Notes: Pt presented to the ED via EMS from dialysis clinic for SOB, CP, and near-syncope. Pt coming from a dialysis clinic. Pt admitted for hypoxia, SOB, and chest pain. Pt's PMH includes liposarcoma; pt is on 3rd line of chemotherapy and is followed by Dr Barksdale. 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 Pt lives alone. Pt's MDPOA is his friend, Yuko Goodson ([phone], ) (see POA in e-chart from 2012). Pt was admitted 05/20/18 and declined HHC at that time. Exact DC needs TBD but anticipate pt to stabilize and DC home Independent. CM to follow. Date Signed: 07/26/2018 04:24 PM Electronically Signed By:Zoraida Field RN [facility] CM Progress Note CM Note CM Note Notes: Pt seen by PT. They are presently recommending no services, but believe it's possible that this recommendation will change to HCPT. OT is recommending no services following d/c. D/C Plan: Anticipate independent, will follow for changes. Date Signed: 07/27/2018 02:07 PM Electronically Signed By:Lakia Aquino Case Management Discharge Plan Note Case Management Discharge Discharge Order Complete? Answers: Yes Patient to Obtain Answers: via Family Medications Transportation Arranged Answers: Family/Friends Discharge Comments Notes: 07/29/2018 Case Management Note Pt discharged without needs from case management. Pt to follow up as directed. Date Signed: 07/29/2018 01:14 PM Electronically Signed By:Virginia Peters RN Intervention Information Intervention Type:*Incorrect Registration Date of Service:07/26/2018 06:04 PM Patient Type:Inpatient Staff Member:JEFFREY Lazaro Kerry Hours: Discipline: Severity: Comment:
--- NOTE | 2018-07-29 16:09 | HOSPPROG ---
Hospitalist Progress Note Assessment/Plan: AHRF - 2/2 acute HF. V/Q low probability for PE. Now on room air after volume removal. 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 Barksdale, who was notified of pt's admission yest Leukocytosis - likely 2/2 recent Neulasta after chemo, trending down, much better today. No e/o infection Anemia - likely multifactorial: chemo, CKD. S/P 1 u prbc's. Hgb improved to 9 , no e/o bleeding. Esophagitis - cont PPI and Pepcid H/O A fib - currently NSR, not on AC DNR DVT PPLX - heparin Dispo - cont inpt, possibly home after HD today vs in am Subjective: Pt feels ok, a bit better today. No CP or SOB. Now on room air. Appetite fair. Breathing improved. Objective: Vital Signs Temp Pulse Resp BP Pulse Ox 37.6 C 83 20 160/69 H 92 07/28/18 23:29 07/29/18 08:00 07/29/18 08:00 07/29/18 08:00 07/29/18 08:00 Laboratory Results 07/28/18 06:00 07/29/18 06:20 07/28/18 07/29/18 07/30/18 05:59 05:59 05:59 Intake Total 830 450 390 Output Total 600 Balance 230 450 390 - Physical Exam Constitutional: no apparent distress, chronically ill appearing Eyes: PERRL Ears, Nose, Mouth, Throat: moist mucous membranes Cardiovascular: regular rate and rhythym Respiratory: no respiratory distress Gastrointestinal: normoactive bowel sounds, soft, non-tender abdomen Skin: warm Musculoskeletal: full muscle strength Neurologic: AAOx3 Psychiatric: interacting appropriately ICD10 Worksheet Patient Problems: Problems Problem Status Onset Acute respiratory failure Acute Chronic Disease Mgmt/Transitional Care Acute Near syncope Acute Anemia Acute Anemia of chronic disease Acute Chest pain Acute Chronic renal failure Acute GI bleed Acute Influenza A Acute Pancreatitis Acute Pneumonia Acute Renal failure Acute
[2018-07-29 22:03] VITALS: BP 159/66
--- NOTE | 2018-07-30 16:52 | ECHO ---
[email or web address] [address] [address] Main: [phone] Fax: Transthoracic Echocardiogram Name: CARLOS ALBERTO JAIMES MR#: [id number] Study Date: 07/26/2018 Study Time: 05:43 PM Date of : 1940 Age: 78 year(s) Height: ( ) Weight: 63.96 kg (141 lb.) BSA: Gender: Male Examination: Echo Indication: CHF Image Quality: Adequate Contrast: Requested by: Mary Luna BP: / Heart Rate: Rhythm: Indication: CHF Procedure Staff Technical Buyer: Tisha Curran LEONARDO Reading Physician: Jin Ferreira MD Requesting Provider: Conclusions: Normal size left ventricle. EF is 60 %. No regional wall motion abnormality. Mitral regurgitation appears to be at least mild to moderate. Aortic sclerosis is present. Trivial aortic valve regurgitation. Trivial calcific aortic valve stenosis. Mean aortic valve gradient 12. Mild tricuspid regurgitation is present. Right ventricular systolic pressure measures 37mmHg. No significant changge compared to 07/01/2018. Measurements: Chambers Valvular Assessment AV/MV Valvular Assessment TV/PV Normal Normal Normal Name Value Range Name Value Range Name Value Range Ao Sophie (2D): 2.5 cm (1.4 cm-2.6 AV Vmax: 2.10 m/s (1 m/s-1.7 TR Vmax: 2.85 mm/s ( - ) cm) m/s) TR PGmax: 32 mmHg ( - ) IVSd (2D): 0.9 cm (0.6 cm-1.1 AV maxP mmHg ( - ) syst. PAP: 37 mmHg ( - ) cm) AV meanP mmHg ( - ) PV Vmax: 1.24 m/s (0.6 m/s-0.9 LVDd (2D): 4.6 cm (4.2 cm-5.9 MARIANNE (VTI): 1.6 cm ( - ) m/s) cm) MV E Vmax: 1.37 m/s ( - ) PV PGmax: 6 mmHg ( - ) LVDs (2D): 3.3 cm (2.1 cm-4 MV A Vmax: 0.93 m/s ( - ) cm) MV E/A: 1.47 ( - ) LVPWd (2D): 1.0 cm (0.6 cm-1 cm) MV PHT: 0.060 s ( - ) LVOTd 1.9 cm 1.9 cm mm MVA (PHT): 3.7 s ( - ) LVEF (BP): 60 % (>=55 %) RVDd(2D): 3.0 cm (1.9 cm-3.8 cmmm) Patient: CARLOS ALBERTO JAIMES Study Date: 07/26/2018 Page 1 of 2 05:43 PM Continued Measurements: Chambers Valvular Assessment AV/MV Valvular Assessment TV/PV Name Value Name Value Name Value LADs: 3.8 cm MV DecTime: 204 m/s CVP (est.): 5 mmHg LADs Lon.3 cm MV E' Septal: 0.08 m/s LA Area: 24.0 cm2 MV E/E' Septal: 16.90 LA Volume: 76 ml MV E/E' Lateral: 11.30 RA Area: 15.3 cm2 Additional Vessels Name Value Ao Ascendin.0 cm Inferior Vena Cava: 1.8 cm Findings: Left Ventricle: Normal size left ventricle. No LV hypertrophy. Normal global systolic LV function. EF is 60 %. No regional wall motion abnormality. Right Ventricle: Normal size right ventricle. Normal RV function. Left Atrium: The left atirum is borderline dilated. Right Atrium: The right atrium is normal in size. Mitral Valve: The mitral valve is normal in appearance. No mitral stenosis is present. Mitral regurgitation appears to be at least mild to moderate. Aortic Valve: The aortic valve is tri-leaflet. Aortic sclerosis is present. Trivial aortic valve regurgitation. Trivial calcific aortic valve stenosis. Mean aortic valve gradient 12. Tricuspid Valve: The tricuspid valve is normal in appearance and function. Mild tricuspid regurgitation is present. The pulmonary artery pressure is normal. Right ventricular systolic pressure measures 37mmHg. Pulmonic Valve: The pulmonic valve is normal in appearance and function. Mild pulmonic valve regurgitation is noted. Aorta: The aorta is normal. Normal size aortic root measuring 2.5 cm. Normal size ascending aorta measuring 3.0 cm. IVC: The IVC is normal sized. Pericardium: No pericardial effusion. There is a pleural effusion present. (No Signature Object) Patient: CARLOS ALBERTO JAIMES Study Date: 07/26/2018 Page 2 of 2 05:43 PM [id number]
[2018-07-31] MEDS ORDERED: PANTOPRAZOLE SODIUM 40 MG TAB PO SCH (09:00)
== END 2018-07-29 21:57 | disposition home or self-care (01) | DRG 682 ==
LOC: EDUNIT# → INTOOBSV 12:43 → F2W 15:44 → OBSVTOIN 07-27 11:25
PROVIDERS: ADMIT Student in an Organized Health Care Education/Training Program; ATTEND Student in an Organized Health Care Education/Training Program
PROC: 5A1D70Z Performance of Urinary Filtration, Intermittent, Less than 6 Hours Per Day (ICD-10-PCS; principal; 2018-07-27)
PROC: 30233N1 Transfusion of Nonautologous Red Blood Cells into Peripheral Vein, Percutaneous Approach (ICD-10-PCS; 2018-07-27)
DX: I13.11 Hypertensive heart and chronic kidney disease without heart failure, with stage 5 chronic kidney disease, or end stage renal disease (principal); I50.9 Heart failure, unspecified; N18.6 End stage renal disease; J96.01 Acute respiratory failure with hypoxia; C49.9 Malignant neoplasm of connective and soft tissue, unspecified; D64.9 Anemia, unspecified; N40.0 Benign prostatic hyperplasia without lower urinary tract symptoms; I45.19 Other right bundle-branch block; I48.91 Unspecified atrial fibrillation; K20.9 Esophagitis, unspecified; Z90.5 Acquired absence of kidney; Z99.2 Dependence on renal dialysis; Z90.410 Acquired total absence of pancreas; Z90.81 Acquired absence of spleen; Z66 Do not resuscitate
CPT/HCPCS: 84484-ER; 97161-GP; 97165-GO; A9540; G0378; G8978-GP-CJ; G8979-GP-CI; G8987-GO-CI; G8988-GO-CI; G8989-GO-CI; J0360; J1644; P9016

== ENCOUNTER 2018-07-30 16:46 | Inpatient (IN) | payer OTHER ==
--- NOTE | 2018-07-30 17:00 | EDPHY ---
H & P Time Seen by Provider: 07/30/18 16:58 HPI/ROS: CHIEF COMPLAINT: Atrial fibrillation HISTORY OF PRESENT ILLNESS: Patient was at [facility] for routine follow-up after his chemotherapy and hospitalization last week. He was noted to be in rapid atrial fibrillation was referred here. He feels tired and mildly short of breath but otherwise at baseline. Does not have palpitations or chest pain. Echocardiogram dated 07/26/2018 shows ejection fraction of 60%. Patient tells me he had atrial fibrillation in 2015 after surgery but apparently has not had any since. Denies history of intracranial bleed or GI bleed, there is a history of esophageal ulcer. History of anemia. REVIEW OF SYSTEMS: Eye: no change in vision ENT: no sore throat Cardiac: HPI Pulmonary: no cough or SOB Abdomen: no vomiting, diarrhea, abdominal pain Musculoskeletal: no back pain Skin: no rash Neuro: no headache Constitutional: no fever : Dialysis patient A comprehensive 10 point review of systems is otherwise negative aside from elements mentioned in the history of present illness. PAST MEDICAL HISTORY: Includes liposarcoma, resection of spleen pancreas and kidney in 2007. Hemodialysis with end-stage renal disease. Atrial fibrillation , BPH, anemia, esophagitis. Social history: [facility] patient. Nonsmoker. No alcohol. General Appearance: Alert and conversant, cooperative. Eyes: No scleral icterus. ENT, Mouth: Normal mucous membranes. Respiratory: Normal respiratory effort, breath sounds equal, lungs are clear to auscultation. Cardiovascular: Irregular rate and rhythm, tachycardic Gastrointestinal: Abdomen is soft and non tender. Neurological: Alert, face symmetric, normal motor and sensory in extremities. Skin: Warm and dry, no rashes. Musculoskeletal: No peripheral edema. Psychiatric: Not agitated. Emergency Department course/MDM: 171: unfractionated heparin ok but not LMWH per pharmacy; OK for propafenone, amiodarone, sotalol. Discussed with Dr. Ferreira at 5:25 p.m. Agrees with metoprolol. 5 mg IV x3, kept on a doctor assistant. 2031: Heart rate decreased to the 70s. Smoking Status: Never smoked Constitutional: Initial Vital Signs Temperature (C) 36.6 C 07/30/18 16:52 Heart Rate 145 H 07/30/18 16:52 Respiratory Rate 16 07/30/18 16:52 Blood Pressure 130/82 H 07/30/18 16:52 O2 Sat (%) 95 07/30/18 16:52 O2 Delivery Mode Room Air Allergies/Adverse Reactions: hydrocodone Allergy (Mild, Verified 07/30/18 16:50) GI upset Home Medications: Medication Instructions Recorded Cyanocobalamin (Vitamin B-12) 2,500 mcg PO DAILY 03/25/18 [Vitamin B12] Multivitamins [Multivitamin (*)] 1 each PO DAILY 03/25/18 Biotin [BIOTIN] 5 mg PO DAILY 07/26/18 Finasteride [Proscar 5 MG (*)] 5 mg PO DAILY 07/26/18 Ondansetron HCl [Zofran] 8 mg PO BID 07/26/18 Ranitidine HCl [Zantac] 150 mg PO DAILY PRN 07/26/18 Pantoprazole Sodium [Protonix 40mg 40 mg PO DAILY 07/30/18 (*)] Medical Decision Making - Diagnostics EKG Interpretation: 12-lead EKG interpreted by me; official reading is in computer system. My interpretation is atrial fibrillation rate 123 with no ischemic changes. Imaging Results: Imaging Impressions Chest X-Ray 07/30/18 17:13 Impression: 1. Resolved CHF. 2. Decreased small bilateral pleural effusions. 3. Gastric pull-through unchanged. Imaging: I viewed and interpreted images myself Consult/Admit Bed Type: [place] [id number] Critical Care Time: Critical care time spent by me, Dr. Stewart, exclusively with the care of this patient was 30 minutes, exclusive of PA or BENCH WORKER APPRENTICE time and exclusive of separate procedures. The organ system at risk was cardia vascular and I ordered IV metoprolol, multiple diagnostics, specialist consultation to stabilize the patient and prevent worsening of the patient's condition. - Data Points Laboratory Results: Laboratory Results 07/30/18 17:18 07/30/18 17:18 07/30/18 07/30/18 07/30/18 17:26 17:18 17:18 WBC 12.93 10^3/uL H 10^3/uL (3.80-9.50) RBC 3.68 10^6/uL L 10^6/uL (4.40-6.38) Hgb 10.5 g/dL L g/dL (13.7-17.5) Hct 32.9 % L % (40.0-51.0) MCV 89.4 fL fL (81.5-99.8) MCH 28.5 pg pg (27.9-34.1) MCHC 31.9 g/dL L g/dL (32.4-36.7) RDW 20.0 % H % (11.5-15.2) Plt Count 248 10^3/uL 10^3/uL (150-400) MPV 11.8 fL H fL (8.7-11.7) Neut % (Auto) 77.0 % H % (39.3-74.2) Lymph % (Auto) 10.7 % L % (15.0-45.0) Wagoner % (Auto) 9.8 % % (4.5-13.0) Eos % (Auto) 0.4 % L % (0.6-7.6) Baso % (Auto) 0.6 % % (0.3-1.7) Nucleat RBC Rel Count 0.3 % H % (0.0-0.2) Absolute Neuts (auto) 9.96 10^3/uL H 10^3/uL (1.70-6.50) Absolute Lymphs (auto) 1.38 10^3/uL 10^3/uL (1.00-3.00) Absolute Monos (auto) 1.27 10^3/uL H 10^3/uL (0.30-0.80) Absolute Eos (auto) 0.05 10^3/uL 10^3/uL (0.03-0.40) Absolute Basos (auto) 0.08 10^3/uL 10^3/uL (0.02-0.10) Absolute Nucleated RBC 0.04 10^3/uL H 10^3/uL (0-0.01) Immature Gran % 1.5 % H % (0.0-1.1) Immature Gran # 0.19 10^3/uL H 10^3/uL (0.00-0.10) RBC/WBC/PLT Morphology TNP Platelet Estimate TNP Sodium 134 mEq/L L mEq/L (135-145) Potassium 4.4 mEq/L mEq/L (3.5-5.2) Chloride 104 mEq/L mEq/L (97-110) Carbon Dioxide 21 mEq/l L mEq/l (22-31) Anion Gap 9 mEq/L mEq/L (6-14) BUN 31 mg/dL H mg/dL (7-23) Creatinine 3.8 mg/dL H mg/dL (0.7-1.3) Estimated GFR 16 Glucose 98 mg/dL mg/dL (70-100) Calcium 7.9 mg/dL L mg/dL (8.5-10.4) POC Troponin I 0.04 ng/mL ng/mL (0.00-0.08) Medications Given: Discontinued Medications Metoprolol Tartrate (Lopressor Injection) 5 mg IVP Q5M MARCOS Stop: 07/30/18 17:41 Last Admin: 07/30/18 18:04 Dose: 5 mg Ondansetron HCl (Zofran) 4 mg IVP EDNOW ONE Stop: 07/30/18 19:05 Last Admin: 07/30/18 19:06 Dose: 4 mg Point of Care Test Results: Chemistry 07/30/18 17:26 POC Troponin I 0.04 ng/mL ng/mL (0.00-0.08) Departure - Departure Disposition: [facility] Inpatient Acute Clinical Impression: Atrial fibrillation Qualifiers: Atrial fibrillation type: paroxysmal Qualified Code(s): I48.0 - Paroxysmal atrial fibrillation Condition: Fair
--- NOTE | 2018-07-30 17:17 | CPEKG ---
Test Reason : OPEN Blood Pressure : / mmHG Vent. Rate : 123 BPM Atrial Rate : 192 BPM P-R Int : 158 ms QRS Dur : 096 ms QT Int : 330 ms P-R-T Axes : 000 007 054 degrees QTc Int : 472 ms Atrial fibrillation Confirmed by Silvino Stewart ([id number]) on 07/30/2018 5:16:57 PM Referred By: Confirmed By:Silvino Stewart
[2018-07-30 17:47] LABS: PLATELET COUNT 248 10^3/uL (150-400)
[2018-07-30] MEDS: METOPROLOL TARTRATE 5 MG/5 ML INJ IVP SCH (18:04)
[2018-07-30] MEDS ORDERED: ONDANSETRON 4 MG/2 ML VIAL IVP ONE (19:04)
[2018-07-30] MEDS ORDERED: ONDANSETRON 4 MG/2 ML VIAL IVP PRN (20:23)
[2018-07-30] MEDS ORDERED: ACETAMINOPHEN 325 MG TAB PO PRN (20:23)
[2018-07-30] MEDS ORDERED: ONDANSETRON DISINTEGRATING 4 MG TAB PO PRN (20:23)
--- NOTE | 2018-07-30 20:31 | PDGENHP ---
History and Physical - Chief Complaint afib - History of Present Illness Patient was at [facility] for routine follow-up after his chemotherapy and hospitalization last week. He was noted to be in rapid atrial fibrillation was referred here. He feels tired and mildly short of breath but otherwise at baseline. Does not have palpitations or chest pain. Echocardiogram dated 07/26 shows ejection fraction of 60%. Patient atrial fibrillation in 2014 after surgery but apparently has not had any since. Denies history of intracranial bleed or GI bleed, there is a history of esophageal ulcer. History of anemia. He was recently discharged from here He was given IV Metoprolol and has converted back to SR. AC was not started. Cardiology was consulted by the ER. He has been afebrile. currently denies cp, sob, n/v, swelling HD is M/W/F PAST MEDICAL HISTORY: Includes liposarcoma, resection of spleen pancreas and kidney in 2007. Hemodialysis with end-stage renal disease. Atrial fibrillation , BPH, anemia, esophagitis. Social history: [facility] patient. Nonsmoker. No alcohol. FmHx: NC History Information - Allergies/Home Medication List Allergies/Adverse Reactions: hydrocodone Allergy (Mild, Verified 07/30/18 16:50) GI upset Home Medications: Cyanocobalamin (Vitamin B-12) [Vitamin B12] 2,500 mcg PO DAILY 03/25/18 [Last Taken 07/29/18] Multivitamins [Multivitamin (*)] 1 each PO DAILY 03/25/18 [Last Taken 07/29/18] Biotin [BIOTIN] 5 mg PO DAILY 07/26/18 [Last Taken 07/29/18] Finasteride [Proscar 5 MG (*)] 5 mg PO DAILY 07/26/18 [Last Taken 07/29/18] Ondansetron HCl [Zofran] 8 mg PO BID 07/26/18 [Last Taken 07/29/18] Ranitidine HCl [Zantac] 150 mg PO DAILY PRN 07/26/18 [Last Taken 07/29/18] Pantoprazole Sodium [Protonix 40mg (*)] 40 mg PO DAILY 07/30/18 [Last Taken ] I have personally reviewed and updated: medical history, social history - Past Medical History atrial fibrillation, cancer, ESRD Additional medical history: BPH - Surgical History Additional surgical history: Multiple cancer surgeries - Family History Additional family history: Denies family hx of cancer - Social History Smoking Status: Never smoked Review of Systems Review of Systems: ROS: 10pt was reviewed & negative except for what was stated in HPI & below Physical Exam Physical Exam: Temp Pulse Resp BP Pulse Ox 36.6 C 68 18 152/100 H 93 07/30/18 16:52 07/30/18 18:20 07/30/18 18:20 07/30/18 18:05 07/30/18 18:20 Constitutional: no apparent distress, chronically ill appearing Eyes: PERRL Ears, Nose, Mouth, Throat: moist mucous membranes Cardiovascular: regular rate and rhythym, edema (trace) Respiratory: no respiratory distress, no rales or rhonchi, clear to auscultation Gastrointestinal: normoactive bowel sounds, soft, non-tender abdomen Skin: warm Neurologic: AAOx3 Psychiatric: interacting appropriately, not anxious, not encephalopathic Lymph, Heme, Immunologic: No petechiae Lab Data & Imaging Review 07/30/18 17:18 07/30/18 17:18 WBC 12.93 10^3/uL (3.80-9.50) H 07/30/18 17:18 RBC 3.68 10^6/uL (4.40-6.38) L 07/30/18 17:18 Hgb 10.5 g/dL (13.7-17.5) L 07/30/18 17:18 Hct 32.9 % (40.0-51.0) L 07/30/18 17:18 MCV 89.4 fL (81.5-99.8) 07/30/18 17:18 MCH 28.5 pg (27.9-34.1) 07/30/18 17:18 MCHC 31.9 g/dL (32.4-36.7) L 07/30/18 17:18 RDW 20.0 % (11.5-15.2) H 07/30/18 17:18 Plt Count 248 10^3/uL (150-400) 07/30/18 17:18 MPV 11.8 fL (8.7-11.7) H 07/30/18 17:18 Neut % (Auto) 77.0 % (39.3-74.2) H 07/30/18 17:18 Lymph % (Auto) 10.7 % (15.0-45.0) L 07/30/18 17:18 [place] % (Auto) 9.8 % (4.5-13.0) 07/30/18 17:18 Eos % (Auto) 0.4 % (0.6-7.6) L 07/30/18 17:18 Baso % (Auto) 0.6 % (0.3-1.7) 07/30/18 17:18 Nucleat RBC Rel Count 0.3 % (0.0-0.2) H 07/30/18 17:18 Absolute Neuts (auto) 9.96 10^3/uL (1.70-6.50) H 07/30/18 17:18 Absolute Lymphs (auto) 1.38 10^3/uL (1.00-3.00) 07/30/18 17:18 Absolute Monos (auto) 1.27 10^3/uL (0.30-0.80) H 07/30/18 17:18 Absolute Eos (auto) 0.05 10^3/uL (0.03-0.40) 07/30/18 17:18 Absolute Basos (auto) 0.08 10^3/uL (0.02-0.10) 07/30/18 17:18 Absolute Nucleated RBC 0.04 10^3/uL (0-0.01) H 07/30/18 17:18 Immature Gran % 1.5 % (0.0-1.1) H 07/30/18 17:18 Immature Gran # 0.19 10^3/uL (0.00-0.10) H 07/30/18 17:18 RBC/WBC/PLT Morphology TNP 07/30/18 17:18 Platelet Estimate TNP 07/30/18 17:18 Sodium 134 mEq/L (135-145) L 07/30/18 17:18 Potassium 4.4 mEq/L (3.5-5.2) 07/30/18 17:18 Chloride 104 mEq/L (97-110) 07/30/18 17:18 Carbon Dioxide 21 mEq/l (22-31) L 07/30/18 17:18 Anion Gap 9 mEq/L (6-14) 07/30/18 17:18 BUN 31 mg/dL (7-23) H 07/30/18 17:18 Creatinine 3.8 mg/dL (0.7-1.3) H 07/30/18 17:18 Estimated GFR 16 07/30/18 17:18 Glucose 98 mg/dL (70-100) 07/30/18 17:18 Calcium 7.9 mg/dL (8.5-10.4) L 07/30/18 17:18 POC Troponin I 0.04 ng/mL (0.00-0.08) 07/30/18 17:26 Assessment & Plan Assessment: #New onset Atrial fibrillation #Recent CHF, appears that volume status has been optimized -latest TTE with preserved EF #ESRD #Anemia #Bilateral pleural effusions, improving #Esophageal ulcer #Liposarcoma, sees Dr. Barksdale Plan: Admission appears now in SR, will schedule Metoprolol succinate Cards to see in a.m May benefit from AC, will wait for reccs from Cards cont home meds Needs HD tomorrow will not repeat TTE Telemetry
[2018-07-30] MEDS ORDERED: RANITIDINE HCL 150 MG/10 ML UDCUP PO PRN (21:00)
[2018-07-30] MEDS: METOPROLOL TARTRATE 25 MG TAB PO SCH (23:26)
[2018-07-30] MEDS: HEPARIN 5,000 UNIT/0.5 ML INJ SC SCH (23:27)
[2018-07-30] MEDS: ONDANSETRON DISINTEGRATING 4 MG TAB PO SCH (23:46)
[2018-07-31] MEDS: HEPARIN 5,000 UNIT/0.5 ML INJ SC SCH ×3 (06:25→22:57)
[2018-07-31 06:41] LABS: PLATELET COUNT 211 10^3/uL (150-400)
[2018-07-31] MEDS: METOPROLOL TARTRATE 5 MG/5 ML INJ IVP SCH ×2 (07:25→07:27)
[2018-07-31] MEDS ORDERED: Biotin [Biotin] 5 MG PO SCH (09:00)
[2018-07-31] MEDS ORDERED: PANTOPRAZOLE SODIUM 40 MG TAB PO SCH (09:00)
[2018-07-31] MEDS ORDERED: FAMOTIDINE 20 MG TAB PO PRN (09:00)
[2018-07-31] MEDS ORDERED: MULTIVITAMINS 1 EACH TAB PO SCH (09:00)
[2018-07-31] MEDS ORDERED: FINASTERIDE 5 MG TAB PO SCH (09:00)
[2018-07-31] MEDS ORDERED: CYANO/VITAMIN B12 1000 MCG TAB PO SCH (09:00)
[2018-07-31] MEDS: METOPROLOL TARTRATE 25 MG TAB PO SCH (10:23)
[2018-07-31] MEDS: ONDANSETRON DISINTEGRATING 4 MG TAB PO SCH ×2 (10:26→22:05)
--- NOTE | 2018-07-31 10:30 | PDMN ---
Medical Necessity Medical necessity: [facility] [place] M505 Atrial Fib: 78 yo presents w/ new onset Afib w/ RVR. Meets [facility] IP criteria for new afib w/ recent dx CHF, multiple comorbidities. Cardiology consult pending. Continuous tele monitoring. Hx liposarcoma, undergoing chemo, spleen/panc/kidney resect 2007, ESRD on hemodialysis, recent hospitalization for CHF, remote hx afib in 2014 post surg.
--- NOTE | 2018-07-31 14:07 | GCON ---
CARDIOLOGY CONSULTATION INDICATION FOR CARDIOLOGY CONSULTATION: New episode of paroxysmal atrial fibrillation. REQUESTING PHYSICIAN FOR CONSULTATION: Triston Bates MD. HISTORY OF PRESENT ILLNESS: The patient is a 78-year-old male with significant history that includes end-stage renal disease for which he has current getting hemodialysis three times a week and liposar coma status post resection of the spleen, pancreas, left kidney in 2007. He has currently on third l ine chemotherapy and has undergone radiation therapy. He is being followed by his oncologist, Dr. Abdirashid he. History of atrial fibrillation in 2008 status post surgery, hypertension, BPH, esophagitis an d esophageal ulcers, and chronic anemia. Patient reporting recent admission for shortness of breath on July 26. Reporting that his dialysis days got thrown off for the holiday. When admitted at t hat time he was significantly volume overloaded. He did undergo dialysis during that time with a goa l of 3 L removal and received a unit of packed red blood cells for anemia. He reported he was discha rged home. He was feeling fairly well on July 29 but reporting later that evening feeling somewh at fatigued. He had an appointment to follow up with his oncologist yesterday afternoon. He was see n by their physician animal care assistant and was noted to have elevated heart rate. An electrocardiogram was d one at the office, and he was found to be in A-fib with RVR. He was recommended to come to the emerg ency department for further evaluation. Upon arrival, repeat electrocardiogram done at that time did show A-fib with RVR with ventricular rate at 123 bpm but no acute ST or T-wave abnormalities. He wa s given a dose of IV metoprolol and converted back into sinus rhythm. He was then admitted to the [facility] for further observation. He states no history of chest pain or pressure. Reports no orthopnea or PND. Reports no recent fevers, chills, or night sweats. During his A-fib, he denies of any palpitat ions but notes fatigue and shortness of breath. Denies any near-syncope or syncopal events. Reporti ng no symptoms suggestive of TIA or CVA. PAST MEDICAL HISTORY: Includes 1. Liposarcoma for which he has received chemotherapy and radiation. 2. End-stage renal disease, on hemodialysis. 3. History of atrial fibrillation, post surgery. 4. BPH. 5. Esophagitis and esophageal ulcers. 6. Anemia. PAST SURGICAL HISTORY: Includes post resection of the spleen, pancreas, and left kidney in 2007 due to his liposarcoma. SOCIAL HISTORY: He reports no smoking, denies any alcohol. He lives independently alone. He is a D NR. His medical power of research chief engineer is his friend. FAMILY HISTORY: Noncontributing. ALLERGIES: Hydrocodone. HOME MEDICATIONS: Include 1. Zantac 150 mg p.o. daily p.r.n. 2. Protonix 40 mg p.o. daily. 3. Zofran 8 mg p.o. twice daily. 4. Multivitamin 1 tablet p.o. daily. 5. Proscar 5 mg p.o. daily. 6. Vitamin B12 25 mcg p.o. daily. 7. Biotin 5 mg p.o. daily. REVIEW OF SYSTEMS: A 10-point review of systems done on patient all negative except as mentioned abo ve. PHYSICAL EXAMINATION: GENERAL APPEARANCE: Thin, elderly appearing male. Appears to be in no acute distress at this time. CURRENT VITAL SIGNS: Blood pressure of 131/57, heart rate of 76, respiration s 18, saturating 95% on room air, temperature of 37.1 degrees Celsius. HEENT: Head is normocephalic . Lips and tongue are pink and moist with no signs of cyanosis. Conjunctivae pink. NECK: Trachea is midline. +2 carotid pulses bilateral. No auscultated bruits. JVD 4-5 cm above sternal notch anali wed at 45 degree angle. RESPIRATORY: Lungs clear to auscultation. No rhonchi, rales, or wheezes. No accessory muscle use. No intercostal muscle retraction noted. CARDIAC: Regular rate, regular rh ythm. S1, S2. No S3, S4 noted. 1/6 to 2/6 systolic murmur noted along the left upper sternal borde r. ABDOMEN: Soft, nontender. Bowel sounds x4 quadrants. No organomegaly. No palpable masses. SK IN: Pale, warm, dry. No cyanosis. No clubbing. No peripheral edema. VASCULAR: +2 carotids bilat eral. +2 radial left. AV fistula on right with positive bruit for hemodialysis. +1 post tibial pul ses bilateral. LABORATORY STUDIES: Laboratory studies drawn today show a WBC of 12.03, hemoglobin of 8.9, hematocri t of 28.3, platelet count 211. Sodium 139, potassium 4.9, chloride 107, CO2 of 23, BUN 37, creatinin e 4.3, glucose 85, calcium 7.7, TSH 1.680. Patient was noted to have a troponin level drawn on admis lilian which was 0.04. STUDIES: Electrocardiogram as mentioned above. Chest x-ray showed no acute cardiopulmonary process with small bilateral pleural effusion. Patient did have a recent echocardiogram done on July 26, 2018, noting normal LV size, normal LV systolic function with no wall motion abnormalities, RV rocio l size and function, LA was borderline dilated, RA is normal size, ucoc-et-uepjkfen MR, trivial AI, m ild TR, RVSP of 37 mmHg, mild VT. No pericardial effusion. ASSESSMENT AND PLAN: 1. Paroxysmal atrial fibrillation: Patient reporting this is his 2nd episode of atrial fibrillation , in his lifetime. First one was greater than 5 years ago postop surgery. He was noted to have RVR with rates up to 120. He was able to convert after IV metoprolol. He has been recently started on o ral metoprolol with no parent problems. Echocardiogram did note mildly dilated LA, normal TSH level. At this time potentially his PAF was due to recent episode of diastolic heart failure which has res olved since hemodialysis. I recommended that he continue taking the metoprolol tartrate, increased d lummi to 25 mg p.o. twice daily. This will also help with his blood pressure. As for anticoagulatio n, he does have a noted history of a CHADS-VASc score of at least 3 (age, hypertension). He does hav e significant history of esophageal bleeding and chronic anemia. We discussed the risks and benefits of anticoagulation. Due to his history he defers being started on anticoagulation at this time. I do think it would be advisable for him to potentially wear a 30-day monitor to evaluate for his A-fib burden, and if we do see significant A-fib then more serious consideration for placing him on antico agulation can be taken at that time. 2. Recent hospitalization for diastolic heart failure: Patient does admit that his dialysis days encarnacion d been off. Recent chest x-ray showing resolving. He is scheduled to undergo dialysis again today. Will defer to Nephrology for dialysis. 3. End-stage renal disease: Patient is getting dialysis 3 times a week. 4. Anemia: Patient does report a history of esophageal ulcers and reporting needing three transfusi ons this year. Continue following up with GI for further evaluation. 5. History of liposarcoma: He is being followed by Oncology. Thank you for this consultation. Patient is planning to have dialysis today and will be discharged l ater today. I will schedule him for a followup appointment in our office in the next 7-10 days. /[id number]/MODL
--- NOTE | 2018-07-31 14:17 | SOAPPROG ---
SOAP Progress Note Assessment/Plan: Assessment: Onc f/u - paroxysmal afib - now converted with metoprolol. 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 Too early to reassess effectiveness Plan: - please ask patient to follow up in our office as scheduled. - please call with questions Subjective: Feels better now. Less fatigue. Wants to go home. Objective: Vital Signs Temp Pulse Resp BP Pulse Ox 37.1 C 76 18 131/57 H 95 07/31/18 12:00 07/31/18 12:00 07/31/18 12:00 07/31/18 12:00 07/31/18 12:00 Laboratory Results 07/31/18 06:30 07/31/18 06:30 07/29/18 07/30/18 07/31/18 23:59 23:59 23:59 Intake Total 440 Output Total 180 Balance 260 Physical Exam - Physical Exam General Appearance: alert, no apparent distress Skin: warm/dry, pallor ICD10 Worksheet Patient Problems: Problems Problem Status Onset Atrial fibrillation Acute Acute respiratory failure Acute Anemia Acute Anemia of chronic disease Acute Chest pain Acute Chronic Disease Mgmt/Transitional Care Acute Chronic renal failure Acute GI bleed Acute Influenza A Acute Near syncope Acute Pancreatitis Acute Pneumonia Acute Renal failure Acute
--- NOTE | 2018-07-31 15:00 | ASMTCMCOM ---
CM Note CM Note Notes: CM reviewed pt's chart for d/c planning. Pt is a 78 y/o male experiencing AFIB. he is receiving treatment for liposarcoma and has end-stage renal disease. NO PT?OT has been ordered. He has a gf, Yuko Goodson and lives independently. No CM needs have been identified. D/C Plan: Anticipate independent. Date Signed: 07/31/2018 03:00 PM Electronically Signed By:Lakia Aquino
--- NOTE | 2018-07-31 15:24 | PDDCSUM ---
Discharge Summary Discharge Summary: Date of Admission: 07/30/2018 Date of Discharge: 07/31/2018 Consults: Cardiology, Nephrology Procedures: N/A Followup: Nephrology, Cardiology Hospital Course Problem List: #New onset Atrial fibrillation - Admitted with elevated HR, converted to NSR after IVP Metoprolol - Cardiology consulted who started patient on 25 mg Metoprolol Tartrate BID for rate control - Will f/u with Cardiology for further evaluation, 30 day monitor to evaluate for A-Fib burden - CHADs-VASC >2 given age and hx of HTN, also has hx of chronic anemia, esophageal bleeding, discussed risks and benefits with patient, holding off on initiating AC while IP, will f/u with Cardiology for further discussion #Recent CHF, appears that volume status has been optimized -latest TTE with preserved EF #ESRD - Nephrology consulted for HD, to be performed this evening prior to discharge #Anemia - Hgb decreased from 10.5 to 8.9 overnight - Repeat CBC prior to HD, transfuse H/H <7/20 #Bilateral pleural effusions, improving #Esophageal ulcer #Liposarcoma, sees Dr. Barksdale Time spent on discharge was >35 minutes with >50% of time spent on patient education and counseling.
--- NOTE | 2018-07-31 16:30 | SOAPPROG ---
[facility]ACE[facility] Progress Note Assessment/Plan: Assessment: 78 yo M with history of recurrent liposarcoma and ESRD 2/2 chemo on HD MWF just discharged after admission with hypervolemia, seen in Onc clinic, found to have new onset A. fib. Given some metoprolol and converted to sinus rhythm. Patient feels good now and hoping for discharge after HD. # ESRD- due for regular dialysis today --HD this evening, then ok for discharge from renal perspective (assuming Hgb not continuing to fall) --0-1kg UF with HD # Anemia- chronic, though Hgb 10.5 --> 8.9 since admission --Recheck CBC at start of dialysis today to make sure stable. If stable, agree patient stable for discharge --If continuing to decrease, would need to try to convince patient to stay in house for further evaluation # Hyperkalemia --modulate with HD # A fib with RVR- new, converted back to sinus rhythm with metoprolol # Recurrent liposarcoma- managed by onc. on new med, too early to see if working >30min spent on the care of this patient with >50% of time spent on counseling and coordination of care Subjective: Patient feeling better. He states that he is going home this evening, period. He agrees to stay for dialysis. Denies shortness of breath. No blood in stool or dark tarry stools. Feels at his baseline. Objective: Vital Signs Temp Pulse Resp BP Pulse Ox 37.1 C 72 10 L 153/70 H 92 07/31/18 15:05 07/31/18 15:05 07/31/18 15:05 07/31/18 15:05 07/31/18 15:05 Laboratory Results 07/31/18 06:30 07/31/18 06:30 07/30/18 07/31/18 08/01/18 05:59 05:59 05:59 Intake Total 440 Output Total 180 Balance 260 General- chronically ill-appearing, NAD, sitting up at side of bed about to eat dinner Eyes- anicteric sclera, no conjunctival edema HEENT- MMM, no gross oral lesions CV- NRRR, + systolic murmur, no LE edema Pulm- CTAB, no wheezes or rales, breathing comfortably on RA Abd- soft, non-tender, non-distended, + BS Extrem- no cyanosis, clubbing, edema, + distal RUE AVF with good bruit and thrill ICD10 Worksheet Patient Problems: Problems Problem Status Onset Atrial fibrillation Acute Acute respiratory failure Acute Anemia Acute Anemia of chronic disease Acute Chest pain Acute Chronic Disease Mgmt/Transitional Care Acute Chronic renal failure Acute GI bleed Acute Influenza A Acute Near syncope Acute Pancreatitis Acute Pneumonia Acute Renal failure Acute
[2018-07-31 20:03] LABS: PLATELET COUNT 211 10^3/uL (150-400)
[2018-07-31] MEDS ORDERED: METOPROLOL TARTRATE 25 MG TAB PO SCH (21:00)
[2018-07-31 22:07] VITALS: BP 176/81
== END 2018-07-31 22:50 | disposition home or self-care (01) | DRG 308 ==
LOC: F2W 20:40
PROVIDERS: ADMIT Family Medicine; ATTEND Internal Medicine
PROC: 5A2204Z Restoration of Cardiac Rhythm, Single (ICD-10-PCS; principal; 2018-07-30)
PROC: 5A1D70Z Performance of Urinary Filtration, Intermittent, Less than 6 Hours Per Day (ICD-10-PCS; 2018-07-31)
DX: I48.0 Paroxysmal atrial fibrillation (principal); N18.6 End stage renal disease; Z99.2 Dependence on renal dialysis; D63.1 Anemia in chronic kidney disease; E87.5 Hyperkalemia; N40.0 Benign prostatic hyperplasia without lower urinary tract symptoms; C79.89 Secondary malignant neoplasm of other specified sites
CPT/HCPCS: 84484-ER; 96374; J1644; J2405

== ENCOUNTER 2018-08-08 19:26 | Observation (INO) | payer OTHER ==
--- NOTE | 2018-08-08 19:53 | EDPHY ---
H & P Time Seen by Provider: 08/08/18 19:38 HPI/ROS: Chief complaint. Chest pain, shortness of breath HPI. [onset, timing, severity, modifying factors, similar symptoms previously, recently seen] ROS 10 systems were reviewed and negative with the exception of the elements mentioned in the history of present illness Smoking Status: Never smoked Constitutional: Initial Vital Signs Temperature (C) 36.9 C 08/08/18 19:30 Heart Rate 72 08/08/18 19:30 Respiratory Rate 18 08/08/18 19:30 Blood Pressure 143/73 H 08/08/18 19:30 O2 Sat (%) 94 08/08/18 19:30 O2 Delivery Mode Room Air Allergies/Adverse Reactions: hydrocodone Allergy (Mild, Verified 08/08/18 19:36) GI upset Home Medications: Medication Instructions Recorded Cyanocobalamin (Vitamin B-12) 2,500 mcg PO DAILY 03/25/18 [Vitamin B12] Multivitamins [Multivitamin (*)] 1 each PO DAILY 03/25/18 Biotin [BIOTIN] 5 mg PO DAILY 07/26/18 Finasteride [Proscar 5 MG (*)] 5 mg PO DAILY 07/26/18 Ondansetron HCl [Zofran] 8 mg PO BID 07/26/18 Pantoprazole Sodium [Protonix 40mg 40 mg PO DAILY 07/30/18 (*)] Metoprolol Tartrate [Lopressor 25 25 mg PO BID #60 tab 07/31/18 mg (*)] Departure - Departure Referrals: Jose G Horton MD [Primary Care Provider] - As per Instructions
[2018-08-08] MEDS ORDERED: ASPIRIN 81 MG CHEWABLE TAB PO ONE (19:55)
--- NOTE | 2018-08-08 19:56 | CPEKG ---
Test Reason : OPEN Blood Pressure : / mmHG Vent. Rate : 068 BPM Atrial Rate : 068 BPM P-R Int : 135 ms QRS Dur : 095 ms QT Int : 409 ms P-R-T Axes : 047 -06 031 degrees QTc Int : 436 ms Sinus rhythm Inferior infarct, acute (LCx) ST elevation, consider anterolateral injury Confirmed by Sadi Hickman ([id number]) on 08/08/2018 7:55:45 PM Referred By: Confirmed By:Sadi Hickman
--- NOTE | 2018-08-08 20:00 | EDPHY ---
H & P Stated Complaint: c/o pain with deep inspiration since mid day, admitted for same sx last wk Time Seen by Provider: 08/08/18 19:38 HPI/ROS: CHIEF COMPLAINT: Chest tightness and shortness of breath HISTORY OF PRESENT ILLNESS: The patient is a 78-year-old man who comes to the emergency department complaining of chest tightness and mild shortness of breath that began around noon today. 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 He was dialyzed yesterday. His oncologist Dr. Barksdale. Was admitted here 1 week ago for atrial fibrillation that spontaneously converted. He was started on metoprolol. His Kunal score was low ending at history of esophageal bleed so they decided not to start him on chronic anticoagulation. He noticed around noon today that he developed some tightness in his chest. No nausea vomiting. No diaphoresis. No leg pain or swelling. Severity: Moderate Modifying factors: None REVIEW OF SYSTEMS: Constitutional: denies: chills, fever, recent illness, recent injury EENTM: denies: blurred vision, double vision, nose congestion Respiratory: denies: cough, shortness of breath Cardiac: denies: chest pain, irregular heart rate, lightheadedness, palpitations Gastrointestinal/Abdominal: denies: abdominal pain, diarrhea, nausea, vomiting, blood streaked stools Genitourinary: denies: dysuria, frequency, hematuria, pain Musculoskeletal: denies: joint pain, muscle pain Skin: denies: lesions, rash, jaundice, bruising Neurological: denies: headache, numbness, paresthesia, tingling, dizziness, weakness Hematologic/Lymphatic: denies: blood clots, easy bleeding, easy bruising Immunologic/allergic: denies: HIV/AIDS, transplant 10 systems reviewed and negative except as noted EXAM: GENERAL: Well-appearing, thin, mild distress. HEAD: Atraumatic, normocephalic. EYES: Pupils equal round and reactive to light, extraocular movements intact, sclera anicteric, conjunctiva are normal. ENT: TMs normal, nares patent, oropharynx clear without exudates. Moist mucous membranes. NECK: Normal range of motion, supple without lymphadenopathy or JVD. LUNGS: Breath sounds clear to auscultation bilaterally and equal. No wheezes rales or rhonchi. HEART: Regular rate and rhythm without murmurs, rubs or gallops. ABDOMEN: Soft, nontender, normoactive bowel sounds. No guarding, no rebound. No masses appreciated. BACK: No CVA tenderness, no spinal tenderness, step-offs or deformities EXTREMITIES: Normal range of motion, no pitting or edema. No clubbing or cyanosis. NEUROLOGICAL: Cranial nerves II through XII grossly intact. Normal speech, normal gait. 5/5 strength, normal movement in all extremities, normal sensation , normal reflexes PSYCH: Normal mood, normal affect. SKIN: Warm, dry, normal turgor, no visible rashes or lesions. Source: Patient Exam Limitations: No limitations - Medical/Surgical History Hx Asthma: No Hx Chronic Respiratory Disease: No Hx Diabetes: No Hx Cardiac Disease: No Hx Renal Disease: Yes Hx Cirrhosis: No Hx Alcoholism: No Hx HIV/AIDS: No Hx Splenectomy or Spleen Trauma: Yes Other PMH: LIPOSARCOMA, HERNIA repair, KIDNEY FAILURE WITH DIALYSIS, esophageal ulcer; BPH; Afib; anemia, surg for tumor, esoph/gastric surg, spleenectomy - Family History Significant Family History: No pertinent family hx - Social History Smoking Status: Never smoked Alcohol Use: Sober Drug Use: None Constitutional: Initial Vital Signs Temperature (C) 36.9 C 08/08/18 19:30 Heart Rate 72 08/08/18 19:30 Respiratory Rate 18 08/08/18 19:30 Blood Pressure 143/73 H 08/08/18 19:30 O2 Sat (%) 94 08/08/18 19:30 O2 Delivery Mode Room Air Allergies/Adverse Reactions: hydrocodone Allergy (Mild, Verified 08/08/18 19:36) GI upset Home Medications: Medication Instructions Recorded Cyanocobalamin (Vitamin B-12) 2,500 mcg PO DAILY 03/25/18 [Vitamin B12] Multivitamins [Multivitamin (*)] 1 each PO DAILY 03/25/18 Finasteride [Proscar 5 MG (*)] 5 mg PO DAILY 07/26/18 Ondansetron HCl [Zofran] 8 mg PO BID 07/26/18 Pantoprazole Sodium [Protonix 40mg 40 mg PO DAILY 07/30/18 (*)] Metoprolol Tartrate [Lopressor 25 25 mg PO BID #60 tab 07/31/18 mg (*)] Herbals/Supplements -Info Only 1 ea PO DAILY 08/08/18 Medical Decision Making - Diagnostics EKG Interpretation: An EKG obtained and was read and documented in trace view. Please see trace view for full reading and report. ST-elevation inferior leads, new compared to previous EKGs, mild ST elevation in anterior leads also that appears to be similar to previous EKGs. Imaging Results: Imaging Impressions Chest X-Ray 08/08/18 19:56 Impression: Stable chest x-ray. No evidence for acute cardiopulmonary abnormality. Imaging: Discussed imaging studies w/ call center team leader Radiologist ED Course/Re-evaluation: 8:00 p.m. the patient was called a cardiac alert on arrival. I spoke with Dr. Bush from Cardiology who will come to evaluate and request 600 mg Plavix and that we notified cardiac cath lab radiology technologist. The patient is a hemodialysis patient and will likely need to be dialyzed sometime after the catheterization. This may not necessarily need to tonight. Will notify renal. 8:30 p.m. cardiology is here and suspects that this may be pericarditis because it is positional. He requests to give the patient Toradol and will re-evaluate next few minutes decide on catheterization. I also spoke with Dr. Gutierrez from renal. She states that it even if the patient does get a contrast load tonight he will not require dialysis until Friday. She asked that we notify her tomorrow if the patient does get contrast. 8:50 p.m. the patient is feeling better. Cardiology continues to suspect that this is pericarditis. The they will not taken to the cardiac cath lab radiology technologist at this time. They will continue to follow. They recommended admission the hospital service. I discussed the case with hospital service who will admit. Differential Diagnosis: Partial list of the Differential diagnosis considered include but were not limited to; acute coronary disease, PE, pneumonia and although unlikely based on the history and physical exam, I also considered pneumothorax dissection. Critical Care Time: Critical care time spent by me, Dr. Hickman exclusive with this patient was 35 minutes, exclusive of the PA time exclusive of procedures. The organ system that was at risk was cardiovascular and I gave medications, consultation and admission to prevent worsening of the patient's condition - Data Points Laboratory Results: Laboratory Results 08/08/18 19:40 08/08/18 19:55 08/08/18 08/08/18 08/08/18 19:59 19:57 19:55 WBC RBC Hgb POC Hgb 10.5 gm/dL L gm/dL (13.7-17.5) Hct POC Hct 31 % L % (40-51) MCV MCH MCHC RDW Plt Count MPV Neut % (Auto) Lymph % (Auto) [place] % (Auto) Eos % (Auto) Baso % (Auto) Nucleat RBC Rel Count Absolute Neuts (auto) Absolute Lymphs (auto) Absolute Monos (auto) Absolute Eos (auto) Absolute Basos (auto) Absolute Nucleated RBC Immature Gran % Seg Neutrophils % Band Neutrophils % Lymphocytes % Monocytes % Eosinophils % Basophils % Metamyelocytes % Myelocytes % Promyelocytes % Blast Cells % Immature Gran # Absolute Seg Neuts Absolute Band Neuts Absolute Lymphocytes Absolute Monocytes Absolute Eosinophils Absolute Basophils Absolute Metamyelocyte Absolute Myelocytes Absolute Promyelocytes Absolute Plasma Cells Nucleated RBCs Absolute Blast Cells Plasma Cells % Platelet Estimate Polychromasia Hypochromasia Target Cells Oval Macrocytes Elliptocytes PT INR APTT POC Sodium 139 mEq/L mEq/L (135-145) Sodium 137 mEq/L mEq/L (135-145) POC Potassium 4.4 mEq/L mEq/L (3.3-5.0) Potassium 4.7 mEq/L mEq/L (3.5-5.2) POC Chloride 102 mEq/L mEq/L (97-110) Chloride 103 mEq/L mEq/L (97-110) Carbon Dioxide 25 mEq/l mEq/l (22-31) Anion Gap 9 mEq/L mEq/L (6-14) POC BUN 22 mg/dL mg/dL (7-23) BUN 24 mg/dL H mg/dL (7-23) Creatinine 3.3 mg/dL H mg/dL (0.7-1.3) POC Creatinine 4.0 mg/dL H mg/dL (0.7-1.3) Estimated GFR 18 Glucose 156 mg/dL H mg/dL (70-100) POC Glucose 159 mg/dL H mg/dL (70-100) Calcium 8.1 mg/dL L mg/dL (8.5-10.4) POC Troponin I 0.03 ng/mL ng/mL (0.00-0.08) 08/08/18 08/08/18 19:40 19:40 WBC 16.10 10^3/uL H 10^3/uL (3.80-9.50) RBC 3.15 10^6/uL L 10^6/uL (4.40-6.38) Hgb 9.3 g/dL L g/dL (13.7-17.5) POC Hgb Hct 29.6 % L % (40.0-51.0) POC Hct MCV 94.0 fL fL (81.5-99.8) MCH 29.5 pg pg (27.9-34.1) MCHC 31.4 g/dL L g/dL (32.4-36.7) RDW 22.6 % H % (11.5-15.2) Plt Count 283 10^3/uL 10^3/uL (150-400) MPV 10.8 fL fL (8.7-11.7) Neut % (Auto) Not Reported Lymph % (Auto) Not Reported [place] % (Auto) Not Reported Eos % (Auto) Not Reported Baso % (Auto) Not Reported Nucleat RBC Rel Count Not Reported Absolute Neuts (auto) Not Reported Absolute Lymphs (auto) Not Reported Absolute Monos (auto) Not Reported Absolute Eos (auto) Not Reported Absolute Basos (auto) Not Reported Absolute Nucleated RBC Not Reported Immature Gran % Not Reported Seg Neutrophils % 72.0 % % Band Neutrophils % 1.0 % % Lymphocytes % 12.0 % % Monocytes % 13.0 % % Eosinophils % 2.0 % % Basophils % 0.0 % % Metamyelocytes % 0.0 % % Myelocytes % 0.0 % % Promyelocytes % 0.0 % % Blast Cells % 0.0 % % Immature Gran # Not Reported Absolute Seg Neuts 11.59 10^3/uL H 10^3/uL (1.70-6.50) Absolute Band Neuts 0.16 10^3/uL 10^3/uL (0.00-0.70) Absolute Lymphocytes 1.93 10^3/uL 10^3/uL (1.00-3.00) Absolute Monocytes 2.09 10^3/uL H 10^3/uL (0.30-0.80) Absolute Eosinophils 0.32 10^3/uL 10^3/uL (0.03-0.40) Absolute Basophils 0.00 10^3/uL L 10^3/uL (0.02-0.10) Absolute Metamyelocyte 0.00 10^3/mL 10^3/mL (0.00-0.00) Absolute Myelocytes 0.00 10^3/mL 10^3/mL (0.00-0.00) Absolute Promyelocytes 0.00 10^3/uL 10^3/uL (0.00-0.00) Absolute Plasma Cells 0.00 10^3/uL 10^3/uL (0.00-0.00) Nucleated RBCs 0 /100 WBC /100 WBC (0-0) Absolute Blast Cells 0.00 10^3/uL 10^3/uL (0.00-0.00) Plasma Cells % 0.0 % % Platelet Estimate ADEQUATE (ADEQ) Polychromasia 2+ H Hypochromasia 1+ H Target Cells 1+ H Oval Macrocytes 2+ H Elliptocytes 1+ H PT 13.9 SEC SEC (12.0-15.0) INR 1.05 (0.83-1.16) APTT 29.0 SEC SEC (23.0-38.0) POC Sodium Sodium POC Potassium Potassium POC Chloride Chloride Carbon Dioxide Anion Gap POC BUN BUN Creatinine POC Creatinine Estimated GFR Glucose POC Glucose Calcium POC Troponin I Medications Given: Colchicine (Colchicine) 0.6 mg PO BID MARCOS Stop: 02/04/19 20:59 Last Admin: 08/08/18 21:27 Dose: 0.6 mg Discontinued Medications Aspirin (Aspirin) 324 mg PO EDNOW ONE Stop: 08/08/18 19:56 Last Admin: 08/08/18 20:00 Dose: 324 mg Clopidogrel Bisulfate (Plavix) 600 mg PO EDNOW ONE Stop: 08/08/18 20:03 Last Admin: 08/08/18 20:12 Dose: 600 mg Ketorolac Tromethamine (Toradol) 30 mg IVP ONCE ONE Stop: 08/08/18 20:29 Last Admin: 08/08/18 20:33 Dose: 30 mg Ondansetron HCl (Zofran) 8 mg IVP ONCE ONE Stop: 08/08/18 20:21 Last Admin: 08/08/18 20:21 Dose: 8 mg Point of Care Test Results: Chemistry 08/08/18 08/08/18 19:59 19:57 POC Sodium 139 mEq/L mEq/L (135-145) POC Potassium 4.4 mEq/L mEq/L (3.3-5.0) POC Chloride 102 mEq/L mEq/L (97-110) POC BUN 22 mg/dL mg/dL (7-23) POC Creatinine 4.0 mg/dL H mg/dL (0.7-1.3) POC Glucose 159 mg/dL H mg/dL (70-100) POC Troponin I 0.03 ng/mL ng/mL (0.00-0.08) ISTAT H&H 08/08/18 19:59 POC Hgb 10.5 gm/dL L gm/dL (13.7-17.5) POC Hct 31 % L % (40-51) Departure - Departure Disposition: [facility] Inpatient Acute Clinical Impression: Acute chest pain Pericarditis Qualifiers: Pericarditis type: unspecified type Chronicity: acute Qualified Code(s): I30.9 - Acute pericarditis, unspecified Condition: Fair
[2018-08-08] MEDS ORDERED: CLOPIDOGREL BISULFATE 75 MG TAB PO ONE (20:02)
[2018-08-08 20:07] LABS: PLATELET COUNT 283 10^3/uL (150-400)
[2018-08-08 20:15] LABS: INR 1.05 (0.83-1.16); PROTIME(PATIENT) 13.9 SEC (12.0-15.0)
[2018-08-08] MEDS ORDERED: ONDANSETRON 4 MG/2 ML VIAL ONE (20:15)
[2018-08-08] MEDS ORDERED: ONDANSETRON 4 MG/2 ML VIAL IVP ONE (20:20)
[2018-08-08] MEDS ORDERED: MIDAZOLAM 2 MG/2 ML VIAL ONE (20:23)
[2018-08-08] MEDS ORDERED: LIDOCAINE 1% 300 MG/30 ML SDV ONE (20:23)
[2018-08-08] MEDS ORDERED: IOPAMIDOL (ISOVUE-370) 150 ML BTL IV ONE (20:23)
[2018-08-08] MEDS ORDERED: fentaNYL 100 MCG/2 ML INJ ONE (20:23)
[2018-08-08] MEDS ORDERED: BIVALIRUDIN 250 MG/5 ML VIAL IV ONE (20:24)
[2018-08-08] MEDS ORDERED: KETOROLAC 30 MG/1 ML SDV IVP ONE (20:28)
[2018-08-08] MEDS ORDERED: METOPROLOL TARTRATE 25 MG TAB ONE (21:02)
--- NOTE | 2018-08-08 21:20 | GCON ---
CARDIOLOGY CONSULTATION CHIEF COMPLAINT: Chest pain. HISTORY OF PRESENT ILLNESS: This is a 78-year-old male with history of end-stage renal disease, [facility], who presents to [facility] with complaints of chest pain. The patient was in [facility] apparently last week for atrial fibrillation, which resolved, and the patient is in sinus rhythm today. However, he has diffuse ST elevations throughout multiple leads. The patient indicates that earlier today he just felt more discomfort in the mid chest region. He clearly indic ates feeling worse with taking a deep inspiration. He feels worse with lying flat. His blood pressu re and heart rate are currently stable. He had been administered aspirin and Plavix, and since the a dministration of these medications, his chest pain has reduced significantly. Currently resting quie tly. No other concomitant issues ongoing currently. PAST MEDICAL HISTORY: Significant for osteosarcoma, end-stage renal disease on dialysis, hypertensio n, paroxysmal atrial fibrillation, GI bleeding. HOME MEDICATIONS: Please see patient's attached chart. Of note, patient is not on anticoagulation t herapy secondary to a history of GI bleeding. FAMILY HISTORY: Noncontributory. SOCIAL HISTORY: No drinking, no smoking, no drug use. REVIEW OF SYSTEMS: Patient currently denies any vision changes. No headache. No palpitations. No throat pain. No ear pain. No back pain. He does indicate having sharp discomfort in the substernal area, especially with deep inspiration and lying flat. No abdominal discomfort. No lower extremity pain. PHYSICAL EXAM: VITAL SIGNS: The patient is currently afebrile at 96, blood pressure 140/70, heart r ate 72, respiratory rate is 12, satting 95% on room air. HEENT: Pupils equally round and reactive to light and accommodation. Extraocular movements intact. CARDIOVASCULAR: Regular rhythm, S1, S2. LUNGS: Clear to auscultation bilaterally. ABDOMEN: Soft, nontender. No guarding. EXTREMITIES: No clubbing, no cyanosis, no edema. NEUROLOGIC: The patient is alert and oriented x3. LABORATORY VALUES: Current show a creatinine of 4. Troponin negative at 0.103. EKG shows diffuse S T elevations throughout all leads. ASSESSMENT AND PLAN: Chest pain. At this time, the patient's chest pain appears to be consistent wi th a pericardial nature, given the fact that there is diffuse ST elevation through all leads, his tom n is worse with inspiration and worse with lying flat. Currently he is hemodynamically stable. His chest pain has improved with just aspirin administration. We have administered 30 mg of IV Toradol i n the ER and will reassess in 15 minutes. If the patient's chest pain has significantly improved wit h this administration, we will continue with medical therapy, check a cardiac echo in the a.m., and p roceed accordingly as pericarditis as the underlying etiology. Obviously, if the patient should have any worsening chest pain and/or hemodynamic changes, we will move forward with cardiac catheterizati on. /[id number]/MODL
[2018-08-08] MEDS: COLCHICINE 0.6 MG CAP/TAB PO SCH (21:27)
[2018-08-08] MEDS ORDERED: ACETAMINOPHEN 325 MG TAB PO PRN (21:44)
[2018-08-08] MEDS ORDERED: NITROGLYCERIN 0.4 MG BTL SL PRN (21:44)
[2018-08-08] MEDS ORDERED: ONDANSETRON 4 MG/2 ML VIAL IVP PRN (21:44)
--- NOTE | 2018-08-08 22:09 | PDGENHP ---
History and Physical - Chief Complaint chest pain - History of Present Illness 78yo M with ESRD on HD, liposarcoma on chemotherapy presents with chest pain. Began sometime early this afternoon and persisted for several hours prior to coming to ED. No radiation or associated shortness of breath, nausea, diaphoresis. The pain is pleuritic and positional, worse with lying flat. Hasn' t had pain like this before. Didn't take anything for it at home. No prior history of CAD. Had negative stress test in 2013. He was brought to the ED as a cardiac alert as his ECG showed diffuse ST elevations. Dr Bush evaluated in the ED and felt his symptoms and ECG changes were consistent with pericarditis, so the laborer mine was de-activated. He received colchicine and toradol in the ED with drastic improvement in symptoms. Of note, he also received 325mg aspirin and 600mg plavix. Of note, he was just hospitalized for atrial fibrillation with RVR. This responded to IV metoprolol. He was not discharged on anticoagulation. I reviewed this hospital stay. History Information - Allergies/Home Medication List Allergies/Adverse Reactions: hydrocodone Allergy (Mild, Verified 08/08/18 19:36) GI upset Home Medications: Cyanocobalamin (Vitamin B-12) [Vitamin B12] 2,500 mcg PO DAILY 03/25/18 [Last Taken 07/29/18] Multivitamins [Multivitamin (*)] 1 each PO DAILY 03/25/18 [Last Taken 08/08/18] Finasteride [Proscar 5 MG (*)] 5 mg PO DAILY 07/26/18 [Last Taken 08/08/18] Ondansetron HCl [Zofran] 8 mg PO BID 07/26/18 [Last Taken 07/29/18] Pantoprazole Sodium [Protonix 40mg (*)] 40 mg PO DAILY 07/30/18 [Last Taken 12/20] Herbals/Supplements -Info Only 1 ea PO DAILY 08/08/18 [Last Taken Unknown] I have personally reviewed and updated: family history, medical history, social history, surgical history - Past Medical History Additional medical history: liposarcoma on 3rd line chemotherapy with Dr Barksdale , ESRD on HD related to nephrectomy, atrial fibrillation, BPH, esophagitis and esophageal ulcer, anemia - Surgical History Additional surgical history: resection of spleen, pancreas, and left kidney in 2008 - Family History Positive for: non-pertinent Additional family history: Denies family hx of cancer - Social History Smoking Status: Never smoked Alcohol Use: Sober Drug Use: None Additional social history: Lives alone. Review of Systems Review of Systems: ROS: 10pt was reviewed & negative except for what was stated in HPI & below Physical Exam Physical Exam: Temp Pulse Resp BP Pulse Ox 36.9 C 64 18 129/55 H 93 08/08/18 21:04 08/08/18 21:04 08/08/18 21:04 08/08/18 21:04 08/08/18 21:04 Constitutional: no apparent distress, cachectic Eyes: PERRL, anicteric sclera, EOMI Ears, Nose, Mouth, Throat: moist mucous membranes, hearing normal, ears appear normal, no oral mucosal ulcers Cardiovascular: regular rate and rhythym, systolic murmur, No JVD, No edema Respiratory: no respiratory distress, no rales or rhonchi, clear to auscultation Gastrointestinal: normoactive bowel sounds, soft, non-tender abdomen, no palpable masses Genitourinary: no bladder fullness, no bladder tenderness Skin: warm, normal color, no rashes or abrasions, no fluctuance, no induration, No mottled Musculoskeletal: full muscle strength, no muscle tenderness, normal joint ROM, no joint effusions Neurologic: AAOx3 Psychiatric: interacting appropriately, not anxious, not encephalopathic, thought process linear Lab Data & Imaging Review 08/08/18 19:40 08/08/18 19:55 WBC 16.10 10^3/uL (3.80-9.50) H 08/08/18 19:40 RBC 3.15 10^6/uL (4.40-6.38) L 08/08/18 19:40 Hgb 9.3 g/dL (13.7-17.5) L 08/08/18 19:40 POC Hgb 10.5 gm/dL (13.7-17.5) L 08/08/18 19:59 Hct 29.6 % (40.0-51.0) L 08/08/18 19:40 POC Hct 31 % (40-51) L 08/08/18 19:59 MCV 94.0 fL (81.5-99.8) 08/08/18 19:40 MCH 29.5 pg (27.9-34.1) 08/08/18 19:40 MCHC 31.4 g/dL (32.4-36.7) L 08/08/18 19:40 RDW 22.6 % (11.5-15.2) H 08/08/18 19:40 Plt Count 283 10^3/uL (150-400) 08/08/18 19:40 MPV 10.8 fL (8.7-11.7) 08/08/18 19:40 Neut % (Auto) Not Reported 08/08/18 19:40 Lymph % (Auto) Not Reported 08/08/18 19:40 [place] % (Auto) Not Reported 08/08/18 19:40 Eos % (Auto) Not Reported 08/08/18 19:40 Baso % (Auto) Not Reported 08/08/18 19:40 Nucleat RBC Rel Count Not Reported 08/08/18 19:40 Absolute Neuts (auto) Not Reported 08/08/18 19:40 Absolute Lymphs (auto) Not Reported 08/08/18 19:40 Absolute Monos (auto) Not Reported 08/08/18 19:40 Absolute Eos (auto) Not Reported 08/08/18 19:40 Absolute Basos (auto) Not Reported 08/08/18 19:40 Absolute Nucleated RBC Not Reported 08/08/18 19:40 Immature Gran % Not Reported 08/08/18 19:40 Seg Neutrophils % 72.0 % 08/08/18 19:40 Band Neutrophils % 1.0 % 08/08/18 19:40 Lymphocytes % 12.0 % 08/08/18 19:40 Monocytes % 13.0 % 08/08/18 19:40 Eosinophils % 2.0 % 08/08/18 19:40 Basophils % 0.0 % 08/08/18 19:40 Metamyelocytes % 0.0 % 08/08/18 19:40 Myelocytes % 0.0 % 08/08/18 19:40 Promyelocytes % 0.0 % 08/08/18 19:40 Blast Cells % 0.0 % 08/08/18 19:40 Immature Gran # Not Reported 08/08/18 19:40 Absolute Seg Neuts 11.59 10^3/uL (1.70-6.50) H 08/08/18 19:40 Absolute Band Neuts 0.16 10^3/uL (0.00-0.70) 08/08/18 19:40 Absolute Lymphocytes 1.93 10^3/uL (1.00-3.00) 08/08/18 19:40 Absolute Monocytes 2.09 10^3/uL (0.30-0.80) H 08/08/18 19:40 Absolute Eosinophils 0.32 10^3/uL (0.03-0.40) 08/08/18 19:40 Absolute Basophils 0.00 10^3/uL (0.02-0.10) L 08/08/18 19:40 Absolute Metamyelocyte 0.00 10^3/mL (0.00-0.00) 08/08/18 19:40 Absolute Myelocytes 0.00 10^3/mL (0.00-0.00) 08/08/18 19:40 Absolute Promyelocytes 0.00 10^3/uL (0.00-0.00) 08/08/18 19:40 Absolute Plasma Cells 0.00 10^3/uL (0.00-0.00) 08/08/18 19:40 Nucleated RBCs 0 /100 WBC (0-0) 08/08/18 19:40 Absolute Blast Cells 0.00 10^3/uL (0.00-0.00) 08/08/18 19:40 Plasma Cells % 0.0 % 08/08/18 19:40 Platelet Estimate ADEQUATE (ADEQ) 08/08/18 19:40 Polychromasia 2+ H 08/08/18 19:40 Hypochromasia 1+ H 08/08/18 19:40 Target Cells 1+ H 08/08/18 19:40 Oval Macrocytes 2+ H 08/08/18 19:40 Elliptocytes 1+ H 08/08/18 19:40 PT 13.9 SEC (12.0-15.0) 08/08/18 19:40 INR 1.05 (0.83-1.16) 08/08/18 19:40 APTT 29.0 SEC (23.0-38.0) 08/08/18 19:40 POC Sodium 139 mEq/L (135-145) 08/08/18 19:59 Sodium 137 mEq/L (135-145) 08/08/18 19:55 POC Potassium 4.4 mEq/L (3.3-5.0) 08/08/18 19:59 Potassium 4.7 mEq/L (3.5-5.2) 08/08/18 19:55 POC Chloride 102 mEq/L (97-110) 08/08/18 19:59 Chloride 103 mEq/L (97-110) 08/08/18 19:55 Carbon Dioxide 25 mEq/l (22-31) 08/08/18 19:55 Anion Gap 9 mEq/L (6-14) 08/08/18 19:55 POC BUN 22 mg/dL (7-23) 08/08/18 19:59 BUN 24 mg/dL (7-23) H 08/08/18 19:55 Creatinine 3.3 mg/dL (0.7-1.3) H 08/08/18 19:55 POC Creatinine 4.0 mg/dL (0.7-1.3) H 08/08/18 19:59 Estimated GFR 18 08/08/18 19:55 Glucose 156 mg/dL (70-100) H 08/08/18 19:55 POC Glucose 159 mg/dL (70-100) H 08/08/18 19:59 Calcium 8.1 mg/dL (8.5-10.4) L 08/08/18 19:55 POC Troponin I 0.03 ng/mL (0.00-0.08) 08/08/18 19:57 Visualized and Interpreted Chest x-ray results: Yes Visualized and Interpreted imaging results: Yes Interpretation: CXR: no acute findings EKG additional interpertation: ECG: diffuse ST elevations, new from prior Assessment & Plan Assessment: 78yo M with ESRD on HD, liposarcoma on chemotherapy presents with chest pain. Plan: 1. Acute chest pain: Most consistent with pericarditis. Less likely ACS although he does have risk factors for this. No prior history of CAD. - Colchicine 0.6mg BID - Hold on NSAIDs per patient request - Trend serial trops - Telemetry - TTE in AM - Cardiology consulted in ED - Will hold on ordering ischemic evaluation as not consistent with coronary etiology 2. Leukocytosis: Likely reactive in setting of above. Upon review, however, this has been rather chronic. Monitor. 3. Anemia: Of renal disease. H/H stable. 4. ESRD: On HD. Hasn't missed any sessions. Labs look ok. Nephrology alerted to admission. 5. Atrial fibrillation: NSR here. Continue metoprolol. Not on anticoagulation, plans on discussing again with cardiology on 08/11. 6. H/o HFpEF: Appears euvolemic. 7. H/o esophagitis/ulcer: Continue PPI VTE ppx: SCDs Code: DNR Diet: renal Dispo: Admit under observation
[2018-08-09] MEDS: METOPROLOL TARTRATE 25 MG TAB PO SCH ×2 (00:23→10:03)
[2018-08-09] MEDS ORDERED: INDOMETHACIN 25 MG CAP PO SCH (08:00)
[2018-08-09] MEDS ORDERED: PANTOPRAZOLE SODIUM 40 MG TAB PO SCH (09:00)
[2018-08-09] MEDS ORDERED: METOPROLOL TARTRATE 25 MG TAB PO SCH (09:00)
[2018-08-09] MEDS ORDERED: FINASTERIDE 5 MG TAB PO SCH (09:00)
[2018-08-09] MEDS: COLCHICINE 0.6 MG CAP/TAB PO SCH (10:03)
--- NOTE | 2018-08-09 10:07 | ECHO ---
[email or web address] [address] Main: [phone] Fax: Transthoracic Echocardiogram Name: CARLOS ALBERTO JAIMES MR#: [id number] Study Date: 08/09/2018 Study Time: 07:49 AM Date of : 1940 Age: 78 year(s) Height: 170.2 cm (67 in.) Weight: 63.96 kg (141 lb.) BSA: 1.74 m2 Gender: Male Examination: Echo Indication: Chest Pain, previous echo 07/15/18 Image Quality: Excellent Contrast: Requested by: Phil Bush BP: 99 mmHg/46 mmHg Heart Rate: Rhythm: Indication: Chest Pain, previous echo 07/15/18 Procedure Staff Rf Microwave Engineer: Lakisha Rojas RDCS Reading Physician: Jasson Casas MD Requesting Provider: Conclusions: Normal size left ventricle. No LV hypertrophy. The ejection fraction is estimated to be 65-70 %. No regional wall motion abnormality. Normal size right ventricle. Mild mitral valve regurgitation is present. The aortic valve is tri-leaflet. The tricuspid valve is normal in appearance and function. Mild tricuspid regurgitation is present. No pericardial effusion. Compared to echo of 07/26/2018, today's echo is unchanged. Measurements: Chambers Valvular Assessment AV/MV Valvular Assessment TV/PV Normal Normal Normal Name Value Range Name Value Range Name Value Range IVSd (2D): 0.9 cm (0.6 cm-1.1 AV Vmax: 1.61 m/s (1 m/s-1.7 TR Vmax: 2.58 mm/s ( - ) cm) m/s) TR PGmax: 27 mmHg ( - ) LVDd (2D): 5.2 cm (4.2 cm-5.9 AV meanP mmHg ( - ) syst. PAP: 32 mmHg ( - ) cm) MV E Vmax: 0.98 m/s ( - ) LVDs (2D): 3.2 cm (2.1 cm-4 MV A Vmax: 0.57 m/s ( - ) cm) MV E/A: 1.72 ( - ) LVPWd (2D): 0.8 cm (0.6 cm-1 cm) LVOTd 1.9 cm 1.9 cm mm LVEF (MOD4): 64 % (>=55 %) EF Range: 65-70 % Continued Measurements: Chambers Valvular Assessment AV/MV Valvular Assessment TV/PV Patient: CARLOS ALBERTO JAIMES Study Date: 08/09/2018 Page 1 of 2 07:49 AM Name Value Name Value Name Value LADs: 3.9 cm MV E' Septal: 0.09 m/s CVP (est.): 5 mmHg LADs Lon.3 cm MV E/E' Septal: 11.30 LA Area: 16.6 cm2 MV E/E' Lateral: 15.20 LA Volume: 41 ml LA Volume Index: 23.6 ml/m2 Additional Vessels Name Value Ao Ascendin.1 cm Findings: Left Ventricle: Normal size left ventricle. No LV hypertrophy. Normal global systolic LV function. The ejection fraction is estimated to be 65-70 %. No regional wall motion abnormality. Normal diastolic LV function. Right Ventricle: Normal size right ventricle. Left Atrium: The left atrium is normal in size. Right Atrium: The right atrium is normal in size. Mitral Valve: The mitral valve is normal in appearance and function. Mild mitral valve regurgitation is present. Aortic Valve: The aortic valve is tri-leaflet. Minimal aortic cusp calcification is noted. Tricuspid Valve: The tricuspid valve is normal in appearance and function. Mild tricuspid regurgitation is present. Pulmonic Valve: The pulmonic valve is normal in appearance and function. Trivial to mild pulmonic valve regurgitation. Aorta: The aorta is normal. Pericardium: No pericardial effusion. (No Signature Object) Patient: CARLOS ALBERTO JAIMES Study Date: 08/09/2018 Page 2 of 2 07:49 AM [id number]
[2018-08-09 11:33] VITALS: BP 123/61
--- NOTE | 2018-08-09 12:59 | ASMTLACE ---
LACE Length of stay for Answers: Less than 1 day current admission Acuity / Level of Answers: No Care: Did the patient have an inpatient admission? Comorbidities - select Answers: Moderate or severe liver all that apply or renal disease Score: 4 Date Signed: 08/09/2018 12:59 PM Electronically Signed By:Arlet Hope RN
--- NOTE | 2018-08-09 13:02 | ASMTCMCOM ---
CM Note CM Note Notes: Patient admitted via ED as OBS due to chest pain. History significant for ESRD and liposarcoma. He has been medically cleared for discharge. No needs. CM available should needs arise. Plan: Home self care. Date Signed: 08/09/2018 01:02 PM Electronically Signed By:Arlet Hope RN
--- NOTE | 2018-08-09 14:26 | PDDCSUM ---
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 He was found to have pericarditis. He was started on Colchicine and Indomethacin. He feels better. He had trop x 3 which were negative. He had an unremarkable echocardiogram. He was evaluated by Cardiology who agrees with diagnosis of pericarditis. No cardiac interventions were performed. His next HD is on Friday. He will f/u with his PCP and Power Electronics Engineer DDX: 1. Acute chest pain: Most consistent with pericarditis. no e/o ACS and w/u negative - Colchicine 0.6mg BID - Indomethacin 25mg BID, will need taper - trops negative - Telemetry - echo unremarkable - Cardiology consulted, see their note 2. Leukocytosis: Likely reactive in setting of above. Upon review, however, this has been rather chronic. Monitor. 3. Anemia: Of renal disease. H/H stable. 4. ESRD: On HD. Hasn't missed any sessions. Labs look ok. Nephrology alerted to admission. 5. Atrial fibrillation: NSR here. Continue metoprolol. Not on anticoagulation, plans on discussing again with cardiology on 08/11. 6. H/o HFpEF: Appears euvolemic. 7. H/o esophagitis/ulcer: Continue PPI Exam: NAD AAOX3 RRR CTA B S/NT/ND MEDS: SEE MED REC F/U: PER ABOVE TOTAL TIME SPENT ON D/C IS 35 MINS
--- NOTE | 2018-08-09 20:25 | CPEKG ---
Test Reason : OPEN Blood Pressure : / mmHG Vent. Rate : 063 BPM Atrial Rate : 063 BPM P-R Int : 136 ms QRS Dur : 091 ms QT Int : 408 ms P-R-T Axes : 080 070 072 degrees QTc Int : 418 ms Sinus rhythm Inferolateral infarct, acute Anterior infarct, possibly acute Confirmed by Tavo Oviedo ([id number]) on 08/09/2018 8:24:34 PM Referred By: Confirmed By:Tavo Oviedo
== END 2018-08-09 13:58 | disposition home or self-care (01) ==
LOC: F2W 22:39
PROVIDERS: ADMIT Internal Medicine Cardiovascular Disease; ATTEND Family Medicine
DX: I31.9 Disease of pericardium, unspecified (principal); D72.829 Elevated white blood cell count, unspecified; C49.9 Malignant neoplasm of connective and soft tissue, unspecified; D63.1 Anemia in chronic kidney disease; N18.6 End stage renal disease; I48.91 Unspecified atrial fibrillation; Z99.2 Dependence on renal dialysis; Z90.81 Acquired absence of spleen; Z90.5 Acquired absence of kidney
CPT/HCPCS: 71045; 93005; 93306; G0378; J1644; J1885; J2405; Q9967; 82435-PO; 82565-PO; 82947-PO; 84132-PO; 84295-PO; 84484-ER; 84520-PO; 85014-ER; 96374; J0583; J2250; J3010

== ENCOUNTER 2018-08-10 19:17 | Emergency (ER) | payer OTHER ==
--- NOTE | 2018-08-10 19:37 | EDPHY ---
H & P Stated Complaint: afib started 2hours DATABASE MODELER Time Seen by Provider: 08/10/18 19:27 HPI/ROS: CHIEF COMPLAINT: Palpitations HISTORY OF PRESENT ILLNESS: The patient has a history of end-stage renal disease and presents the emergency department after he developed palpitations after dialysis today. The patient denies any chest pain or shortness of breath. The patient denies any fever, cough or congestion. The patient denies medication changes. He has no complaints of headache, numbness or weakness. REVIEW OF SYSTEMS: A comprehensive 10 point review of systems is otherwise negative aside from elements mentioned in the history of present illness. Source: Patient - Personal History Current Tetanus/Diphtheria Vaccine: Yes Current Tetanus Diphtheria and Acellular Pertussis (TDAP): Yes - Medical/Surgical History Hx Asthma: No Hx Chronic Respiratory Disease: No Hx Diabetes: No Hx Cardiac Disease: Yes Hx Renal Disease: Yes Hx Cirrhosis: No Hx Alcoholism: No Hx HIV/AIDS: No Hx Splenectomy or Spleen Trauma: Yes Other PMH: LIPOSARCOMA, HERNIA repair, KIDNEY FAILURE WITH DIALYSIS, esophageal ulcer; BPH; Afib; anemia, surg for tumor, esoph/gastric surg, spleenectomy - Social History Smoking Status: Never smoked - Physical Exam Exam: General Appearance: Thin male, no acute distress Eyes: Pupils equal and round no pallor or injection ENT, Mouth: Mucous membranes moist Respiratory: There are no retractions, lungs are clear to auscultation, no evidence of fluid overload clinically Cardiovascular: Regular rate and rhythm Gastrointestinal: Abdomen is soft and nontender, no masses, bowel sounds normal Neurological: 5/5 strength noted all 4 extremities Skin: Warm and dry, no rashes Musculoskeletal: Neck is supple nontender Extremities: symmetrical, full range of motion, no pedal edema Psychiatric: Patient is oriented X 3, there is no agitation Constitutional: Initial Vital Signs Temperature (C) 36.6 C 08/10/18 19:21 Heart Rate 75 08/10/18 19:21 Respiratory Rate 16 08/10/18 19:21 Blood Pressure 113/58 L 08/10/18 19:21 O2 Sat (%) 95 08/10/18 19:21 O2 Delivery Mode Room Air Allergies/Adverse Reactions: hydrocodone Allergy (Mild, Verified 08/10/18 19:24) GI upset Home Medications: Medication Instructions Recorded Cyanocobalamin (Vitamin B-12) 2,500 mcg PO DAILY 03/25/18 [Vitamin B12] Multivitamins [Multivitamin (*)] 1 each PO DAILY 03/25/18 Finasteride [Proscar 5 MG (*)] 5 mg PO DAILY 07/26/18 Ondansetron HCl [Zofran] 8 mg PO BID 07/26/18 Pantoprazole Sodium [Protonix 40mg 40 mg PO DAILY 07/30/18 (*)] Metoprolol Tartrate [Lopressor 25 25 mg PO BID #60 tab 07/31/18 mg (*)] Herbals/Supplements -Info Only 1 ea PO DAILY 08/08/18 Colchicine [Colchicine (*)] 0.6 mg PO BID #60 ea 08/09/18 Indomethacin [Indocin 25 mg (*)] 25 mg PO TIDMEAL #90 cap 08/09/18 Medical Decision Making - Diagnostics EKG Interpretation: EKG: Complete interpretation has been separately recorded in the [facility] archive. Summary impression: Sinus rhythm, rate 73 ED Course/Re-evaluation: The patient presents the ED after an episode of atrial fibrillation which has resolved. The patient is hemodynamically stable and neurologically intact. The patient has no evidence of an anemia or critical metabolic derangement. The patient was monitored in the emergency department for an hour without evidence of any significant arrhythmia noted. The patient remained asymptomatic throughout his stay in the emergency department. I re-evaluated the patient at 8:10 p.m.. He is in no acute distress and will be discharged home. He is advised to return to the ED for recurrent palpitations or other concerns. Differential Diagnosis: Differential diagnosis considered includes atrial fibrillation, atrial flutter, dehydration, metabolic abnormality - Data Points Laboratory Results: Laboratory Results 08/10/18 19:40 08/10/18 19:40 08/10/18 08/10/18 19:40 19:40 WBC 11.19 10^3/uL H 10^3/uL (3.80-9.50) RBC 3.28 10^6/uL L 10^6/uL (4.40-6.38) Hgb 9.6 g/dL L g/dL (13.7-17.5) Hct 29.8 % L % (40.0-51.0) MCV 90.9 fL fL (81.5-99.8) MCH 29.3 pg pg (27.9-34.1) MCHC 32.2 g/dL L g/dL (32.4-36.7) RDW 22.9 % H % (11.5-15.2) Plt Count 341 10^3/uL 10^3/uL (150-400) MPV 10.3 fL fL (8.7-11.7) Neut % (Auto) Pending Lymph % (Auto) Pending [place] % (Auto) Pending Eos % (Auto) Pending Baso % (Auto) Pending Nucleat RBC Rel Count Pending Absolute Neuts (auto) Pending Absolute Lymphs (auto) Pending Absolute Monos (auto) Pending Absolute Eos (auto) Pending Absolute Basos (auto) Pending Absolute Nucleated RBC Pending Immature Gran % Pending Immature Gran # Pending Platelet Estimate Pending Sodium 137 mEq/L mEq/L (135-145) Potassium 4.2 mEq/L mEq/L (3.5-5.2) Chloride 99 mEq/L mEq/L (97-110) Carbon Dioxide 32 mEq/l H mEq/l (22-31) Anion Gap 6 mEq/L mEq/L (6-14) BUN 22 mg/dL mg/dL (7-23) Creatinine 2.9 mg/dL H mg/dL (0.7-1.3) Estimated GFR 21 Glucose 117 mg/dL H mg/dL (70-100) Calcium 7.9 mg/dL L mg/dL (8.5-10.4) Departure - Departure Disposition: Home, Routine, Self-Care Clinical Impression: Palpitations, End stage renal disease Condition: Good Instructions: End Stage Kidney Disease (ED) Additional Instructions: 1. Return to the emergency department for any recurrent palpitations, chest pain , difficulty breathing or other concerns. 2. Please follow-up with your primary care provider as needed. Referrals: Jose G Horton MD [Primary Care Provider] - As per Instructions
[2018-08-10 19:51] LABS: PLATELET COUNT 341 10^3/uL (150-400)
--- NOTE | 2018-08-10 20:14 | CPEKG ---
Test Reason : OPEN Blood Pressure : / mmHG Vent. Rate : 073 BPM Atrial Rate : 036 BPM P-R Int : 136 ms QRS Dur : 097 ms QT Int : 404 ms P-R-T Axes : 018 016 039 degrees QTc Int : 446 ms Sinus rhythm Probable left ventricular hypertrophy Confirmed by Speedy Acevedo ([id number]) on 08/10/2018 8:13:33 PM Referred By: Confirmed By:Speedy Acevedo
[2018-08-10 20:41] VITALS: BP 127/57
--- NOTE | 2018-08-13 14:28 | CPEKG ---
Test Reason : OPEN Blood Pressure : / mmHG Vent. Rate : 072 BPM Atrial Rate : 035 BPM P-R Int : 134 ms QRS Dur : 097 ms QT Int : 401 ms P-R-T Axes : 015 017 039 degrees QTc Int : 439 ms Sinus rhythm Probable left ventricular hypertrophy Lateral infarct, acute ST elevation, consider inferior injury Confirmed by John Wong ([id number]) on 08/13/2018 2:28:13 PM Referred By: Confirmed By:John Wong
== END 2018-08-10 20:40 | disposition home or self-care (01) ==
DX: R00.2 Palpitations (principal); N18.6 End stage renal disease; D63.1 Anemia in chronic kidney disease; Z90.81 Acquired absence of spleen; Z90.5 Acquired absence of kidney; Z99.2 Dependence on renal dialysis
CPT/HCPCS: 93005; 96374; 99284; J1642

== ENCOUNTER → 2018-08-11 | Outpatient (CLI) | payer OTHER | LOC: BHFA 13:15 | PROVIDERS: ATTEND Nurse Practitioner Adult Health | DX: I15.1 Hypertension secondary to other renal disorders (principal); N28.89 Other specified disorders of kidney and ureter; N18.6 End stage renal disease; I48.0 Paroxysmal atrial fibrillation ==

== ENCOUNTER → 2018-08-18 | Outpatient (CLI) | payer OTHER | LOC: BHFA 13:30 | PROVIDERS: ATTEND Internal Medicine Interventional Cardiology | DX: I48.91 Unspecified atrial fibrillation (principal) ==

== ENCOUNTER 2018-10-30 17:14 | Inpatient (IN) | payer OTHER ==
[2018-10-30 18:53] LABS: PLATELET COUNT 21 10^3/uL (150-400)
--- NOTE | 2018-10-30 18:58 | EDPHY ---
H & P Stated Complaint: low hct, weak Time Seen by Provider: 10/30/18 18:17 HPI/ROS: CHIEF COMPLAINT: I think I need a blood transfusion, I am weak HISTORY OF PRESENT ILLNESS: 78-year-old gentleman with history of liposarcoma as well as end-stage renal disease presents reporting that he has been feeling progressively fatigued and weak. Patient denies any specific chest pain or shortness of breath, no nausea or vomiting, no fevers or chills, no cough, no abdominal pain, no obvious blood loss. He states that he has become anemic in the past and that he typically feels quite drained. He is followed at [facility]; last H&H 2 days ago were 7 and 21. REVIEW OF SYSTEMS: A comprehensive 10 system review of systems was reviewed and is otherwise negative aside from elements mentioned in the history of present illness and medical decision making. PAST MEDICAL HISTORY: Liposarcoma with multiple resections and abdominal surgery, status post splenectomy, end-stage renal disease. Hemodialysis 3 times a week. Atrial fibrillation SOCIAL HISTORY: Nonsmoker. VITAL SIGNS Reviewed by me. GENERAL: Thin, pale, male looks tired. HEENT: Atraumatic. Eyes: Pale conjunctiva, No icterus, no injection. Mouth: moist mucous membranes. No erythema or lesions. Neck: supple with no adenopathy. LUNGS: Clear to auscultation bilaterally, no wheezes, rhonchi or rales. CARDIAC: Irregularly irregular. ABDOMEN: Soft, nontender, nondistended, bowel sounds normal. BACK: No CVA tenderness. EXTREMITIES: No trauma. No edema. Range of motion is normal throughout. Hemodialysis graft in the right upper extremity with positive thrill and bruit. NEURO: Alert and oriented, grossly nonfocal. SKIN: Warm and dry, no rash. PSYCHIATRIC: Normal mentation, no agitation. - Personal History Current Tetanus Diphtheria and Acellular Pertussis (TDAP): Yes - Medical/Surgical History Hx Asthma: No Hx Chronic Respiratory Disease: No Hx Diabetes: No Hx Cardiac Disease: Yes Hx Renal Disease: Yes Hx Cirrhosis: No Hx Alcoholism: No Hx HIV/AIDS: No Hx Splenectomy or Spleen Trauma: Yes Other PMH: LIPOSARCOMA, HERNIA repair, KIDNEY FAILURE WITH DIALYSIS, esophageal ulcer; BPH; Afib; anemia, surg for tumor, esoph/gastric surg, spleenectomy - Social History Smoking Status: Never smoked Constitutional: Initial Vital Signs Temperature (C) 37.0 C 10/30/18 17:23 Heart Rate 94 10/30/18 17:23 Respiratory Rate 18 10/30/18 17:23 Blood Pressure 141/61 H 10/30/18 17:23 O2 Sat (%) 92 10/30/18 17:23 O2 Delivery Mode Room Air O2 (L/minute) 2 Allergies/Adverse Reactions: hydrocodone Allergy (Mild, Verified 08/10/18 19:24) GI upset Home Medications: Medication Instructions Recorded Multivitamins [Multivitamin (*)] 1 each PO DAILY 03/25/18 Ondansetron HCl [Zofran] 8 mg PO BID PRN 07/26/18 Pantoprazole Sodium [Protonix 40mg 40 mg PO DAILY 07/30/18 (*)] Metoprolol Tartrate [Lopressor 25 50 mg PO BID 10/30/18 mg (*)] Medical Decision Making ED Course/Re-evaluation: Laboratory evaluation: Hemoglobin 6.9, hematocrit 20. Platelets 21, platelets were 53 2 days ago. Creatinine 1.9, potassium 3.9. Type and cross ordered. Course discussed with the hospitalist service. Patient was admitted to Dr. Carloz Ardon. Hematology-Oncology will follow. Hemodynamically stable. No signs of bleeding at this point. Differential Diagnosis: Differential diagnosis of the patient's weakness was considered including but not limited to electrolyte abnormality, anemia, cardiac ischemia, and infectious causes. Consult/Admit Bed Type: Dr. Ardon, [facility] - Data Points Laboratory Results: Laboratory Results 10/31/18 11:31 10/30/18 18:15 10/30/18 18:21 Patient ABO/Rh B POSITIVE Antibody Screen NEGATIVE Crossmatch IS Only See Detail Enhanced Crossmatch See Detail Platelet Orders Status READY Medications Given: Discontinued Medications Calcium Gluconate (Calcium Gluconate 1 Gm (Premix)) 50 mls @ 100 mls/hr IV ONCE ONE Stop: 11/01/18 11:38 Last Admin: 11/01/18 11:42 Dose: 50 mls Loperamide HCl ( Imodium) 2 - 4 mg PO PRN PRN PRN Reason: LOOSE STOOLS, SEE COMMENTS Stop: 04/29/19 20:29 Last Admin: 11/01/18 14:58 Dose: 4 mg Metoprolol Tartrate (Lopressor) 50 mg PO BID [facility] Stop: 04/29/19 10:59 Last Admin: 11/01/18 09:29 Dose: 50 mg Multivitamins (Tab-A-Yuni) 1 each PO DAILY [facility] Stop: 04/30/19 08:59 Last Admin: 11/01/18 09:29 Dose: 1 each Pantoprazole Sodium (Protonix) 40 mg PO DAILY [facility] Stop: 04/29/19 09:59 Last Admin: 11/01/18 09:29 Dose: 40 mg Departure - Departure Disposition: [facility] Clinical Impression: Thrombocytopenia Anemia Qualifiers: Anemia type: other cause Other causes of anemia: antineoplastic chemotherapy Qualified Code(s): D64.81 - Anemia due to antineoplastic chemotherapy Condition: Fair
[2018-10-30] MEDS ORDERED: ACETAMINOPHEN 325 MG TAB PO PRN (19:24)
[2018-10-30] MEDS ORDERED: ONDANSETRON DISINTEGRATING 4 MG TAB PO PRN (19:24)
[2018-10-30] MEDS ORDERED: ONDANSETRON 4 MG/2 ML VIAL IVP PRN (19:24)
--- NOTE | 2018-10-30 20:22 | PDGENHP ---
History and Physical - Chief Complaint Fatigue - History of Present Illness Elier Pineda is a 78 yo M with a PMHx of ESRD on HD MWF, A Fib, Liposarcoma who presents to [facility] for fatigue. He reports that recently he has felt drained of energy. He has felt like this in the past when he is anemic. His last round of chemo was last . He denies any chest pain, SOB, n/v, d/c, dysuria, abdominal pain, f/c. He does not a non-productive cough but denies other URI symptoms. History Information - Allergies/Home Medication List Allergies/Adverse Reactions: hydrocodone Allergy (Mild, Verified 08/10/18 19:24) GI upset Home Medications: Multivitamins [Multivitamin (*)] 1 each PO DAILY 03/25/18 [Last Taken 08/08/18] Ondansetron HCl [Zofran] 8 mg PO BID PRN 07/26/18 [Last Taken 07/29/18] Pantoprazole Sodium [Protonix 40mg (*)] 40 mg PO DAILY 07/30/18 [Last Taken 12/20] Metoprolol Tartrate [Lopressor 25 mg (*)] 50 mg PO BID 10/30/18 [Last Taken ] I have personally reviewed and updated: family history, medical history, social history, surgical history - Past Medical History atrial fibrillation, cancer, ESRD Additional medical history: liposarcoma on 3rd line chemotherapy with Dr Barksdale , ESRD on HD related to nephrectomy, atrial fibrillation, BPH, esophagitis and esophageal ulcer, anemia - Surgical History Additional surgical history: resection of spleen, pancreas, and left kidney in 2007 - Family History Positive for: non-pertinent Additional family history: Denies family hx of cancer - Social History Smoking Status: Never smoked Additional social history: Lives alone. Review of Systems Review of Systems: ROS: 10pt was reviewed & negative except for what was stated in HPI & below Physical Exam Physical Exam: Temp Pulse Resp BP Pulse Ox 36.7 C 76 16 177/76 H 95 10/30/18 18:00 10/30/18 19:45 10/30/18 19:45 10/30/18 19:34 10/30/18 19:45 Constitutional: no apparent distress, chronically ill appearing Eyes: PERRL Ears, Nose, Mouth, Throat: dry mucous membranes Cardiovascular: regular rate and rhythym Respiratory: no respiratory distress Gastrointestinal: soft, non-tender abdomen Skin: warm Musculoskeletal: generalized weakness Neurologic: AAOx3 Psychiatric: interacting appropriately Lab Data & Imaging Review 10/30/18 18:15 10/30/18 18:15 WBC 5.99 10^3/uL (3.80-9.50) 10/30/18 18:15 RBC 1.93 10^6/uL (4.40-6.38) L 10/30/18 18:15 Hgb 6.9 g/dL (13.7-17.5) L 10/30/18 18:15 Hct 20.0 % (40.0-51.0) L 10/30/18 18:15 MCV 103.6 fL (81.5-99.8) H 10/30/18 18:15 MCH 35.8 pg (27.9-34.1) H 10/30/18 18:15 MCHC 34.5 g/dL (32.4-36.7) 10/30/18 18:15 RDW 21.3 % (11.5-15.2) H 10/30/18 18:15 Plt Count 21 10^3/uL (150-400) L* 10/30/18 18:15 MPV TNP 10/30/18 18:15 Neut % (Auto) Not Reported 10/30/18 18:15 Lymph % (Auto) Not Reported 10/30/18 18:15 [place] % (Auto) Not Reported 10/30/18 18:15 Eos % (Auto) Not Reported 10/30/18 18:15 Baso % (Auto) Not Reported 10/30/18 18:15 Nucleat RBC Rel Count Not Reported 10/30/18 18:15 Absolute Neuts (auto) Not Reported 10/30/18 18:15 Absolute Lymphs (auto) Not Reported 10/30/18 18:15 Absolute Monos (auto) Not Reported 10/30/18 18:15 Absolute Eos (auto) Not Reported 10/30/18 18:15 Absolute Basos (auto) Not Reported 10/30/18 18:15 Absolute Nucleated RBC Not Reported 10/30/18 18:15 Immature Gran % Not Reported 10/30/18 18:15 Seg Neutrophils % 69.0 % 10/30/18 18:15 Band Neutrophils % 2.0 % 10/30/18 18:15 Lymphocytes % 19.0 % 10/30/18 18:15 Monocytes % 8.0 % 10/30/18 18:15 Eosinophils % 0.0 % 10/30/18 18:15 Basophils % 0.0 % 10/30/18 18:15 Metamyelocytes % 2.0 % 10/30/18 18:15 Myelocytes % 0.0 % 10/30/18 18:15 Promyelocytes % 0.0 % 10/30/18 18:15 Blast Cells % 0.0 % 10/30/18 18:15 Immature Gran # Not Reported 10/30/18 18:15 Absolute Seg Neuts 4.13 10^3/uL (1.70-6.50) 10/30/18 18:15 Absolute Band Neuts 0.12 10^3/uL (0.00-0.70) 10/30/18 18:15 Absolute Lymphocytes 1.14 10^3/uL (1.00-3.00) 10/30/18 18:15 Absolute Monocytes 0.48 10^3/uL (0.30-0.80) 10/30/18 18:15 Absolute Eosinophils 0.00 10^3/uL (0.03-0.40) L 10/30/18 18:15 Absolute Basophils 0.00 10^3/uL (0.02-0.10) L 10/30/18 18:15 Absolute Metamyelocyte 0.12 10^3/mL (0.00-0.00) H 10/30/18 18:15 Absolute Myelocytes 0.00 10^3/mL (0.00-0.00) 10/30/18 18:15 Absolute Promyelocytes 0.00 10^3/uL (0.00-0.00) 10/30/18 18:15 Absolute Plasma Cells 0.00 10^3/uL (0.00-0.00) 10/30/18 18:15 Nucleated RBCs 0 /100 WBC (0-0) 10/30/18 18:15 Absolute Blast Cells 0.00 10^3/uL (0.00-0.00) 10/30/18 18:15 Plasma Cells % 0.0 % 10/30/18 18:15 Toxic Granulation PRESENT H 10/30/18 18:15 Platelet Estimate DECREASED (ADEQ) L 10/30/18 18:15 Hypochromasia 1+ H 10/30/18 18:15 Target Cells 1+ H 10/30/18 18:15 Oval Macrocytes 3+ H 10/30/18 18:15 Stomatocytes 1+ H 10/30/18 18:15 Elliptocytes 1+ H 10/30/18 18:15 Keratocytes 1+ H 10/30/18 18:15 Schistocytes 1+ H 10/30/18 18:15 Sodium 136 mEq/L (135-145) 10/30/18 18:15 Potassium 3.7 mEq/L (3.5-5.2) 10/30/18 18:15 Chloride 96 mEq/L (97-110) L 10/30/18 18:15 Carbon Dioxide 34 mEq/l (22-31) H 10/30/18 18:15 Anion Gap 6 mEq/L (6-14) 10/30/18 18:15 BUN 14 mg/dL (7-23) 10/30/18 18:15 Creatinine 2.0 mg/dL (0.7-1.3) H 10/30/18 18:15 Estimated GFR 33 10/30/18 18:15 Glucose 88 mg/dL (70-100) 10/30/18 18:15 Calcium 7.1 mg/dL (8.5-10.4) L 10/30/18 18:15 Total Bilirubin 1.0 mg/dL (0.1-1.4) 10/30/18 18:15 Conjugated Bilirubin 0.8 mg/dL (0.0-0.5) H 10/30/18 18:15 Unconjugated Bilirubin 0.2 mg/dL (0.0-1.1) 10/30/18 18:15 AST 55 IU/L (17-59) 10/30/18 18:15 ALT 95 IU/L (21-72) H 10/30/18 18:15 Alkaline Phosphatase 442 IU/L (38-126) H 10/30/18 18:15 Troponin I 0.024 ng/mL (0.000-0.034) 10/30/18 18:15 Total Protein 5.2 g/dL (6.3-8.2) L 10/30/18 18:15 Albumin 2.6 g/dL (3.5-5.0) L 10/30/18 18:15 Lipase < 10 IU/L (23-300) L 10/30/18 18:15 Patient ABO/Rh B POSITIVE 10/30/18 18:21 Antibody Screen NEGATIVE 10/30/18 18:21 Crossmatch IS Only See Detail 10/30/18 18:21 Enhanced Crossmatch See Detail 10/30/18 18:21 Assessment & Plan Assessment: Anemia (Acute) - In setting of recent chemotherapy, ESRD - Hgb 6.9 on admission - Will transfuse 1 unit PRBC this evening - Repeat Hgb in the AM - Oncology aware, consult in the AM Thrombocytopenia (Acute) - Platelets 21 on admission - Patient denies any s/s of bleeding - Will hold on platelet transfusions tonight - Hold anticoagulation as well - Repeat CBC in the AM - Oncology consult as above A Fib - Continue home Metoprolol - No AC in setting of above ESRD on HD - MWF schedule, received HD today - Labs appear relatively WNL on admission - No need for dialysis likely over the weekend, if patient here on Friday then consult Nephrology for regularly scheduled HD FEN: Renal Diet DVT PPx: SCDs given anemia and thrombocytopenia Code: FULL Dispo: Admit to medicine
[2018-10-31 05:53] LABS: PLATELET COUNT 18 10^3/uL (150-400)
--- NOTE | 2018-10-31 11:00 | HOSPPROG ---
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 Barksdale. He presents with increasing fatigue and found to have severe anemia and thrombocytopenia. Unclear if this is all related to his chemotherapy or other etiology. His history is also significant for end-stage renal disease on dialysis on Friday followed by Dr. Owens in [place]. # anemia, likely secondary to chemo however will check retic count, LDH and direct Victoria. A Oncology will see patient in consultation. * Current hemoglobin 7.6 will monitor and consider further transfusions. * Consider Procrit as patient with end-stage renal disease and is not currently on any medication as outpatient. # thrombocytopenia unclear etiology this is relatively new despite being on chemotherapy for several months. * Oncology consult * No active bleeding currently # liposarcoma followed by Dr. Barksdale # end-stage renal disease dialysis Friday he did get his dialysis yesterday. He likely will be discharged prior to needing further dialysis however I will alert Nephrology that he is in-house. * Consider Procrit * Will add iron levels to blood work done. # atrial fibrillation, recent admission and placed on beta-silva. Currently appears to be in sinus rhythm will resume his metoprolol. Blood pressure is stable despite significant anemia. due to pts significant anemia and thrombocytopenia and multiple co-morbidities he will need additional midnight stay Subjective: Patient new to me and chart reviewed. Complains of fatigue but anxious to go home. No specific complaints today except weakness Objective: Vital Signs Temp Pulse Resp BP Pulse Ox 36.9 C 72 16 149/63 H 98 10/31/18 08:00 10/31/18 08:00 10/31/18 08:00 10/31/18 08:00 10/31/18 08:00 Laboratory Results 10/31/18 05:30 - Physical Exam Constitutional: no apparent distress, chronically ill appearing Eyes: PERRL Ears, Nose, Mouth, Throat: moist mucous membranes Cardiovascular: regular rate and rhythym Respiratory: no respiratory distress, clear to auscultation Gastrointestinal: normoactive bowel sounds Genitourinary: no bladder fullness Skin: warm, No normal color (Pale) Musculoskeletal: no joint effusions Neurologic: AAOx3 ICD10 Worksheet Patient Problems: Problems Problem Status Onset Atrial fibrillation Acute Acute chest pain Acute Pericarditis Acute Thrombocytopenia Acute Chronic Disease Mgmt/Transitional Care Acute Pneumonia Acute Chronic renal failure Acute Influenza A Acute Chest pain Acute Pancreatitis Acute GI bleed Acute Anemia Acute Anemia of chronic disease Acute Renal failure Acute Acute respiratory failure Acute Near syncope Acute
[2018-10-31] MEDS: METOPROLOL TARTRATE 25 MG TAB PO SCH ×2 (11:17→20:53)
[2018-10-31] MEDS: PANTOPRAZOLE SODIUM 40 MG TAB PO SCH (11:17)
--- NOTE | 2018-10-31 12:33 | ASMTCMCOM ---
CM Note CM Note Notes: Pt admitted for fatigue, s/o last chemo treatment on for Liposarcoma. Dc needs uncertain, PT cleared pt for home and /OT eval pending. Anticipate he will dc home independent when medically stable. CM available for any changes. DC Plan: Independent Date Signed: 10/31/2018 12:33 PM Electronically Signed By:Keke Weaver RN
--- NOTE | 2018-10-31 13:56 | GHP ---
[f rep st] HISTORY AND PHYSICAL DATE OF ADMISSION: 10/30/2018 REASON FOR CONSULTATION: Anemia and thrombocytopenia in a patient with recurrent liposarcoma. HISTORY OF PRESENT ILLNESS: The patient is a very pleasant 78-year-old male with a recurrent retrope ritoneal liposarcoma, who was admitted with progressive fatigue and found to be more anemic and throm bocytopenic than his baseline. 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 He had an R2 resection that entail ed removal of the spleen, tail of the pancreas, adrenal gland, and left kidney. He underwent adjuvan t CyberKnife therapy to a psoas muscle lesion. There was residual disease near the pancreas, and he received adjuvant Adriamycin and ifosfamide for 4 cycles. In November of 2014, he was found to have a l ocal recurrence of the liposarcoma in and around the stomach. He had a resection of this mass with Jessie Pete. As part of the resection, he had a distal esophagectomy, proximal stomach, diaphragm, and p rimary esophagogastrostomy anastomosis. Esophageal and gastric margins were negative, but there was focal liposarcoma present close to, but not involving, a serosal surface. He received Votrient from January of 2015 to January of 2016 in an "adjuvant" marked fashion. In November of 2017, he was found to have a 9.3 centrally necrotic mass involving the left upper quadrant near the left nephrectomy and splene ctomy sites. Votrient was restarted after he had been off it for approximately 2 years. He then rec eived IMRT radiation to the retroperitoneal tumor in January and February of 2018. The patient was started on trabectedin (Yondelis) starting in June of 2018. He had a PET-CT in [facility] that was consistent with showing a response to the therapy. He has been receiving this once every 3 weeks and has generally been tolerating it well. There have been no cytopenias associated wi th it. The patient has chronic renal failure and is on dialysis, which he receives on Friday, Friday, Fri. He does receive erythropoietin stimulating agent as part of the dialysis. He was admitted [facility] with a hematocrit of 22, which is lower than his baseline, and a platelet count of 21. PAST MEDICAL HISTORY: Retroperitoneal liposarcoma, chronic kidney disease, with 1 viable kidney, on dialysis, hypertension, Callahan esophagus, anemia of chronic disease. PAST SURGICAL HISTORY: Sarcoma surgery, as outlined above. FAMILY HISTORY: Not contributory. SOCIAL HISTORY: He lives independently. He does not smoke cigarettes or drink alcohol. He lives in [place]. 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 REVIEW OF SYSTEMS: Ten-point review of systems is negative. Of note, he is not having any bleeding or bruising. PHYSICAL EXAM: GENERAL: He is a pale, chronically ill-appearing male who is lying comfortably in be d. HEENT: Pupils are equal. Sclerae anicteric. Oropharynx: Poor dentition. LUNGS: Clear to aus cultation. HEART: Regular rate. ABDOMEN: Soft and nontender. EXTREMITIES: No edema. LABORATORY DATA: White blood cell count 6.1, hematocrit 22, platelets 18,000, creatinine 2.0. LFTs unremarkable, other than conjugated bili of 0.8. IMPRESSION: This is a 78-year-old male with a long history of recurrent liposarcoma, currently being treated with Yondelis since June of 2018, with apparent response on most recent imaging in . He has worsening of his chronic anemia and has new-onset thrombocytopenia. He is not having an y bleeding symptoms. While the Yondelis can cause thrombocytopenia, he has not experienced that sinc e starting treatment. However, I suspect that is most likely the etiology of the cytopenias. Given his increased fatigue and more significant anemia than baseline, I think transfusing with another uni t of blood would be reasonable. I would recommend holding off on a platelet transfusion, unless plat elet count is less than 10, or we see signs of bleeding. If this is chemotherapy-induced thrombocyto penia, I would expect that he start to have a spontaneous rise in his platelet count in the coming da ys. I think this is unlikely to represent an autoimmune process or a consumptive microangiopathic pr ocess, but we will check PT, PTT, and LDH. Of note, the unconjugated bilirubin is normal. PLAN: 1. Would recommend 1 more unit of packed RBC transfusion. 2. Hold on platelet transfusion for now. 3. We will make a decision about platelet transfusion tomorrow, depending on his platelet count. 4. On discharge, he will need close followup in the office. 5. Assuming that this is chemotherapy-related, he will need some dose modifications to avoid this de gree of cytopenias with the next treatment. /[id number]/MODL
--- NOTE | 2018-10-31 15:36 | CPEKG ---
Test Reason : OPEN Blood Pressure : / mmHG Vent. Rate : 071 BPM Atrial Rate : 071 BPM P-R Int : 133 ms QRS Dur : 109 ms QT Int : 434 ms P-R-T Axes : 055 014 034 degrees QTc Int : 472 ms Sinus rhythm Probable left atrial enlargement Confirmed by Laxmi Clement ([id number]) on 10/31/2018 3:35:47 PM Referred By: Laxmi Clement Confirmed By:Laxmi Clement
[2018-10-31] MEDS: LOPERAMIDE HCL 2 MG CAP PO PRN (20:53)
[2018-11-01 06:05] LABS: PLATELET COUNT 14 10^3/uL (150-400)
[2018-11-01 06:17] LABS: INR 0.99 (0.83-1.16); PROTIME(PATIENT) 12.7 SEC (12.0-15.0)
[2018-11-01] MEDS ORDERED: PROTOCOL CALCIUM 1 DOSE IV PRN (08:49)
[2018-11-01] MEDS ORDERED: MULTIVITAMINS 1 EACH TAB PO SCH (09:00)
[2018-11-01] MEDS: METOPROLOL TARTRATE 25 MG TAB PO SCH (09:29)
[2018-11-01] MEDS: PANTOPRAZOLE SODIUM 40 MG TAB PO SCH (09:29)
[2018-11-01] MEDS ORDERED: CALCIUM GLUCONATE 50 ML IV ONE (11:09)
--- NOTE | 2018-11-01 11:21 | PDMN ---
Medical Necessity Medical necessity: Pt meets IP criteria as of 10/31/2018 per and GLENYS M-35 ( Anemia); los > 2 mn for ongoing tx and management of symptomatic anemia and thrombocytopenia in the setting of liposarcoma and ESRD on dialysis; requiring further monitoring serial labs, oncology consultation, and nephrology consultation.
--- NOTE | 2018-11-01 12:52 | ASDISCHSUM ---
Discharge Information Plan Status:Home with No Needs Medically Cleared to Leave:11/01/2018 Discharge Date:11/01/2018 CM D/C Disposition:Home, Routine, Self-Care ADT D/C Disposition:Home, Routine, Self-Care Projected Discharge Date:11/01/2018 Transportation at D/C:Friend Discharge Delay Reason: Follow-Up Date:11/01/2018 Discharge Slot: Final Diagnosis:anemia, weakness, liposarcoma Placement Information Patient Contact Information Contact Name:CAMMYJOSELO Relationship:Friend Address: City:[place] Alternate Phone: [facility]/Zip Code:[place] [address] Email: Financial Information Financial Class:Medicare Primary Plan Desc:MEDICARE OUTPATIENT Primary Plan Number:[id number] Secondary Plan Desc:[employer] [facility] Secondary Plan Number:[id number] Assessment Information LACE LACE Length of stay for Answers: 2 days current admission Acuity / Level of Answers: Yes Care: Did the patient have an inpatient admission? Comorbidities - select Answers: Any tumor (including all that apply lymphoma or leukemia) Moderate or severe liver or renal disease Other Notes: afib # of Emergency department Answers: 5-8 visits in the last 6 months Score: 16 Date Signed: 11/01/2018 12:51 PM Electronically Signed By:Guadalupe Coles [facility] CM Progress Note CM Note CM Note Notes: Pt admitted for fatigue, s/o last chemo treatment on for Liposarcoma. Dc needs uncertain, PT cleared pt for home and /OT eval pending. Anticipate he will dc home independent when medically stable. CM available for any changes. DC Plan: Independent Date Signed: 10/31/2018 12:33 PM Electronically Signed By:Keke Weaver RN Case Management Discharge Plan Note Case Management Discharge Discharge Order Complete? Answers: Yes Patient to Obtain Answers: via Family Medications Transportation Arranged Answers: Family/Friends Transport will Pick (Date 11/01/2018 12:00 AM & Time) Family Notified Answers: No Notes: pt called friend Discharge Comments Notes: Spoke with pt in the room and with RN. Pt asserts he has support from friends at home and does not need HHC at this time. Therapies also cleared him for home. No CM needs noted at this time. Intervention Information Intervention Type:*IM-Signed Date of Service:11/01/2018 12:51 PM Patient Type:Inpatient Staff Member:Guadalupe Coles Hours: Discipline:[employer] Artisan Severity: Comment:
[2018-11-01] MEDS: LOPERAMIDE HCL 2 MG CAP PO PRN (14:58)
[2018-11-01 15:26] VITALS: BP 146/65
--- NOTE | 2018-11-01 15:26 | SOAPPROG ---
SOMONIKA Progress Note Assessment/Plan: Assessment: 1. Anemia/thrombocytopenia-likely secondary to chemo. Patient at [facility]. 2. REcurrent liposarcoma 3. renal failure-on dialysis Plan: 1. Platelet transfusion today prior to discharge. 2. Dialysis tomorrow. 3. Close follow up in the office this friday. Will let Dr. Barksdale know events of the last few days 4. Agree with discharge 11/01/18 15:20 Subjective: feels well. Eager for discharge Objective: Vital Signs Temp Pulse Resp BP Pulse Ox 36.5 C 59 L 16 147/66 H 97 11/01/18 11:39 11/01/18 11:39 11/01/18 11:39 11/01/18 11:39 11/01/18 11:39 Laboratory Results 11/01/18 05:45 PT 12.7 SEC (12.0-15.0) 11/01/18 05:45 INR 0.99 (0.83-1.16) 11/01/18 05:45 Physical Exam - Physical Exam General Appearance: alert Neck: supple Respiratory: lungs clear Abdomen: non-tender, soft ICD10 Worksheet Patient Problems: Problems Problem Status Onset Anemia Acute Thrombocytopenia Acute Acute chest pain Acute Acute respiratory failure Acute Anemia of chronic disease Acute Atrial fibrillation Acute Chest pain Acute Chronic Disease Mgmt/Transitional Care Acute Chronic renal failure Acute GI bleed Acute Influenza A Acute Near syncope Acute Pancreatitis Acute Pericarditis Acute Pneumonia Acute Renal failure Acute
--- NOTE | 2018-11-01 16:38 | GDS ---
[f rep st] DISCHARGE SUMMARY DIAGNOSES: 1. Thrombocytopenia. No bleeding noted, likely secondary to chemotherapy. 2. Anemia, secondary to chemotherapy, improved after transfusion. 3. End-stage renal disease, on dialysis Friday, Friday, Friday, followed by Dr. Owens. 4. Liposarcoma, followed by Dr. Barksdale. 5. Atrial fibrillation, currently on a beta silva and in sinus rhythm at the time of dictation. CONSULTATIONS: Oncology, Dr. Danita Sherman. PROCEDURES DONE: Transfusion of red blood cells and platelets. HOSPITAL COURSE: Mr. Pineda is a 78-year-old with a history of liposarcoma, followed by Dr. Barksdale . He finished his rounds of chemotherapy prior to admission. He comes in with complaints of weaknes s and fatigue and was found to be anemic. He was admitted to the hospital, transfused with 2 units o f packed red blood cells and a unit of platelets. At the time of discharge, his red blood cells did improve to hemoglobin 8.8. His platelet count is pending at the time of dictation. He was feeling m uch improved and is anxious to go home. However, his main issue is end-stage renal disease for which he is on dialysis Friday, Friday, Friday. I left a message with his event decorator, dustin Sanchez egarding the platelet count. He will get a followup platelet count post transfusion prior to dischar ge today. He is okay to proceed with dialysis, but they should not use heparin during the dialysis. He will also have a followup blood count done on Friday with Oncology. CONDITION ON DISCHARGE: His vital signs have remained stable. His blood pressure is 147/60, heart r ate 59. He is 97% on room air. He is alert and oriented and looking much improved today. He has no active bleeding noted. DISCHARGE MEDICATIONS: Please see discharge medication form. FOLLOWUP: Patient followup with dialysis tomorrow and not use heparin. Follow up with Oncology on for repeat CBC. Total time spent with patient on day of discharge and coordination of care is 35 minutes. I did luis enrique jordan a message with his event decorator and discussed the patient in detail with Oncology. /[id number]/MODL
== END 2018-11-01 16:11 | disposition home or self-care (01) | DRG 811 ==
LOC: F3E 20:00 → OBSVTOIN 10-31 14:19
PROVIDERS: ADMIT Internal Medicine; ATTEND Internal Medicine
DX: D64.81 Anemia due to antineoplastic chemotherapy (principal); D63.1 Anemia in chronic kidney disease; D69.6 Thrombocytopenia, unspecified; N18.6 End stage renal disease; C48.0 Malignant neoplasm of retroperitoneum; I48.91 Unspecified atrial fibrillation; N40.0 Benign prostatic hyperplasia without lower urinary tract symptoms; Z90.5 Acquired absence of kidney; Z99.2 Dependence on renal dialysis
CPT/HCPCS: 97161-GP; 97165-GO; G0378; J0610; P9016; P9035; P9100